=== PATIENT | female | born 1955 | race Caucasian/White ===

== ENCOUNTER 2019-12-31 22:54 | Inpatient (IN) | payer MEDICARE, BC, SELFPAY ==
[2019-12-31] VITALS (7 sets, daily range): BP systolic 126–146; BP diastolic 66–84; PULSE 92–105; RESP 14–20; TEMP 36.3; O2SAT 93–95; BMI 33.5
--- NOTE | 2019-12-31 23:16 | RAD_ITS ---
HISTORY: C/O SOB, RT SHOULDER PAIN Tamp; CP ADDITIONAL HISTORY: None provided. EXAMINATION/TECHNIQUE: XR Chest 1 View AP/PA Number of images including paperwork: 1 COMPARISON: None FINDINGS: LUNGS AND PLEURA: Low lung volumes. No consolidation, mass or pleural effusion. CARDIAC SILHOUETTE: Unremarkable. MEDIASTINUM AND BEN: Unremarkable. UPPER ABDOMEN: Unremarkable. SKELETON AND SOFT TISSUES: No acute skeletal findings. Degenerative changes. OTHER DEVICES AND HARDWARE: None. RAD/Chest 1 View (Portable) IMPRESSION: No acute findings on this portable exam. Follow-up as clinically indicated. at 2356 Reported and signed by: Kenya Villeda MD Electronically Signed: Kenya Villeda MD at 23:56 EDT Tel , Service support ,
--- NOTE | 2019-12-31 23:16 | EKG12_ITS ---
Test Reason : DYSRHYTHMIA Blood Pressure : / mmHG Vent. Rate : 095 BPM Atrial Rate : 095 BPM P-R Int : 178 ms QRS Dur : 086 ms QT Int : 350 ms P-R-T Axes : 036 -54 027 degrees QTc Int : 439 ms Normal sinus rhythm Left axis deviation Inferior infarct , age undetermined Abnormal ECG Confirmed by DARREN DILL, ALEX ([id number]), movie editor NAREN LAMBERT ([id number]) on 01/05/2020 8:25:49 AM Referred By: SUSAN Confirmed By:UVALDO BANKS MD
--- NOTE | 2019-12-31 23:17 | ED.VIS.CHEST ---
History of Present Illness Chief Complaint: General Illness Informant: Patient Onset: Hours - 1.5-2 Activity at onset: Sleep - awoke w/ sx Quality: Pressure Location: Substernal Current Severity: Mild Maximum Severity: Moderate Worsened By: Nothing. Not Worsened By: Breathing Relieved By: Nothing - in particular Associated Symptoms: Dyspnea, Palpitations. Negative for: Nausea, Vomiting, Diaphoresis, Cough, Fever, Lightheadedness Narrative: Patient states this afternoon 10 hours ago or so, she experienced tingling in her left hand which she has on occasion after she had a surgery on her left arm that involve ligating her ulnar artery, it went away and then she had it in her right hand which is unusual. Lasted about half an hour and went away. She felt tired and took a nap. She woke up about 1.5-2 hours prior to arrival with a discomfort in her right flank, she points to an area between her chest and abdomen on her side, states that she had a pain there and also felt pain in her right shoulder she points to the subacromial area, as well as the trapezius musculature. She states the pain in her side felt like a electric surge that may be lasted 30-60 minutes and is basically gone. She is also had some mild chest pressure with all of this, and feeling some mild dyspnea. She states she had trouble walking, but qualifies that by saying she has had swelling in her legs for the last week or so, and thinks that it was just difficult to walk, not painful or dyspnea or lightheaded/near syncopal. She said she uses the word palpitation, but has trouble qualifying it, and then basically is using it to describe this electric surge that she felt on her side. She has never had any of this before. However she has not seen a doctor in about 20 years, and just sought to establish primary care, has an appointment with Dr. Moore in 2 days, and has not seen her before. - Past Medical History (1) Arthritis Status: Chronic Comment: Wears brace left ankle for ankle/knee arthritic issues Past Medical History - Allergies and Home Meds Allergies/Adverse Reactions: Allergies No Known Allergies Allergy (Verified 03/18/16 07:26) Surgical History: - - Left upper extremity Lives: Spouse/ Significant Other Smoking Status: Never smoker Review of Systems General: Reports: Malaise. Denies: Chills, Fever, Sweats Eyes: Denies: Visual changes - bilaterally, Diplopia ENT: Denies: Bilateral ear pain, Rhinorrhea, Sore throat Cardiovascular: Reports: Chest pain, Palpitations. Denies: Heart racing Respiratory: Reports: Dyspnea. Denies: Cough, Dyspnea on exertion Gastrointestinal: Reports: Abdominal pain - See HPI. Denies: Nausea, Vomiting, Diarrhea, Melena, Hematochezia Genitourinary: Denies: Dysuria, Hematuria, Frequency Musculoskeletal: Reports: Arthralgias - Chronic unchanged, Neck pain - Right trapezius, Swelling - BLE, Extremity Pain - Right shoulder. Denies: Myalgias, Back pain Skin: Denies: Rash, Wounds Neurological: Reports: Parasthesia - Resolved now. Denies: Headache, Weakness Physical Exam Vital Signs/Narrative: Vital Signs Temp Pulse Resp BP Pulse Ox 12/31/19 23:12 97.4 F L 100 19 H 146/74 H 95 12/31/19 22:54 97.4 F L 105 H 20 H 143/77 H 94 Inital Vital Signs reviewed: Yes General: Well nourished, Well developed, Obese, No Acute Distress Head: Normocephalic, Atraumatic Eyes: Perrl, EOMI ENT: Moist mucous membranes, No rhinorrhea Neck: Supple, Nontender, No lymphadenopathy, No JVD Cardiovascular: Regular rate, Regular rhythm, Murmur - Systolic soft 2/6 Respiratory: No distress, CTA bilaterally, Chest nontender Abdomen: Soft, Nontender, Nondistended, Normal bowel sounds Back: Nontender, Normal Inspection. Negative for: CVA tenderness Extremities: Tenderness - Mild right subacromial and trapezius. No acromioclavicular or other bony shoulder girdle tenderness. Full range of motion of shoulder., Edema - 1+ nonpitting symmetric both lower extremities, - - Left foot-drop brace present. Negative for: Calf Tenderness Skin: Normal color, No rash Neurological: Alert, Oriented x3, Cranial nerves II-XII grossly intact, Normal Strength, Normal Sensation Psychological: Normal affect, Normal Mood Diagnostic/Tx/Re-eval Clinical Impression(s) from Imaging Studies Chest X-Ray 12/31/19 23:16 IMPRESSION: No acute findings on this portable exam. Follow-up as clinically indicated. at 7936 Reported and signed by: Kenya Villeda MD Electronically Signed: Kenya Villeda MD at 23:56 EDT Tel , Service support , Chest CTA 01/01/20 04:00 IMPRESSION: 1. No central or large peripheral pulmonary embolus, evaluation limited due to motion artifact and contrast bolus timing. 2. Right lower lobe consolidation suggestive of pneumonia. 3. Somewhat nodular appearance of breast parenchyma bilaterally with slightly more prominent ovoid nodular density on the left. Correlation with mammography recommended. Individualized dose optimization techniques were used for this CT. at 0519 Reported and signed by: Kenya Villeda MD Electronically Signed: Kenya Villeda MD at 5:18 EDT Tel , Service support , Abdomen/Pelvis CT 01/01/20 04:03 IMPRESSION: No acute abdominopelvic abnormality. Right ovarian cyst. Nonemergent follow-up pelvic ultrasound suggested for further characterization with gynecologic follow-up. Individualized dose optimization techniques were used for this CT. at 0526 Reported and signed by: Kenya Villeda MD Electronically Signed: Kenya Villeda MD at 5:25 EDT Tel , Service support , Laboratory Tests 01/01/20 01/01/20 12/31/19 Range/Units 02:13 00:10 23:14 WBC (4.4-11.0) K/mm3 RBC (4.2-5.4) M/mm3 Hgb (12.0-15.0) g/dL Hct (37-47) % MCV (81-99) fL MCH (27.0-32.0) pg MCHC (32-36) g/dL RDW Std Deviation (35.1-43.9) fl RDW Coeff of Pa (11.6-14.6) % Plt Count (150-450) K/mm3 MPV (6.2-12.0) fl Immature Gran % (Auto) (0.0-0.9) % Neut % (Auto) (47-70) % Lymph % (Auto) (19-41) % [place] % (Auto) (0-10) % Eos % (Auto) (0-5) % Baso % (Auto) (0-1) % Absolute Neuts (auto) (2.0-7.7) X10^3/uL Absolute Lymphs (auto) (0.83-4.51) X10^3/uL Nucleated RBC % (0-5) % Sodium 137 (136-145) mmol/L Potassium 3.7 (3.5-5.1) mmol/L Chloride 106 (98-107) mmol/L Carbon Dioxide 26.0 (21.0-32.0) mmol/L Anion Gap 5 (5-15) BUN 12 (7-18) mg/dL Creatinine 0.65 (0.55-1.02) mg/dL Estim Creat Clear Calc 47.79 ml/min Est GFR (MDRD) Af Amer 118 (>60) mL/min Est GFR (MDRD) Non-Af 97 (>60) mL/min BUN/Creatinine Ratio 18.6 (10-20) RATIO Glucose 121 H (74-106) mg/dL Calcium 9.2 (8.5-10.1) mg/dL Troponin I < 0.015 < 0.015 (<0.045) ng/mL Urine Color Yellow (Yellow) Urine Clarity Clear (Clear) Urine pH 7.0 (5.0 - 8.0) Ur Specific [place] 1.005 (1.002-1.030) Urine Protein 15 H (Negative) mg/dl Urine Glucose (UA) Normal (Normal) mg/dl Urine Ketones 5 H (Negative) mg/dl Urine Occult Blood 25 H (Negative) /ul Urine Nitrite Negative (Negative) Urine Bilirubin Negative (Negative) mg/dL Urine Urobilinogen Normal (Normal) mg/dl Ur Leukocyte Esterase 500 H (Negative) /ul Urine RBC 0-5 SEEN (0-5) /hpf Urine WBC 0-5 SEEN (0-5) /hpf Ur Squamous Epith Cells 0-5 SEEN (5-10) /hpf Urine Bacteria 0 SEEN (None Seen) /hpf Urine Mucus 0 SEEN (<or=2+) /hpf 12/31/19 Range/Units 23:14 WBC 13.9 H (4.4-11.0) K/mm3 RBC 4.29 (4.2-5.4) M/mm3 Hgb 13.1 (12.0-15.0) g/dL Hct 39.5 (37-47) % MCV 92.1 (81-99) fL MCH 30.5 (27.0-32.0) pg MCHC 33.2 (32-36) g/dL RDW Std Deviation 43.3 (35.1-43.9) fl RDW Coeff of Pa 12.8 (11.6-14.6) % Plt Count 275 (150-450) K/mm3 MPV 9.1 (6.2-12.0) fl Immature Gran % (Auto) 0.500 (0.0-0.9) % Neut % (Auto) 88.1 H (47-70) % Lymph % (Auto) 4.5 L (19-41) % [place] % (Auto) 6.7 (0-10) % Eos % (Auto) 0.1 (0-5) % Baso % (Auto) 0.1 (0-1) % Absolute Neuts (auto) 12.3 H (2.0-7.7) X10^3/uL Absolute Lymphs (auto) 0.62 L (0.83-4.51) X10^3/uL Nucleated RBC % 0 (0-5) % Sodium (136-145) mmol/L Potassium (3.5-5.1) mmol/L Chloride (98-107) mmol/L Carbon Dioxide (21.0-32.0) mmol/L Anion Gap (5-15) BUN (7-18) mg/dL Creatinine (0.55-1.02) mg/dL Estim Creat Clear Calc ml/min Est GFR (MDRD) Af Amer (>60) mL/min Est GFR (MDRD) Non-Af (>60) mL/min BUN/Creatinine Ratio (10-20) RATIO Glucose (74-106) mg/dL Calcium (8.5-10.1) mg/dL Troponin I (<0.045) ng/mL Urine Color (Yellow) Urine Clarity (Clear) Urine pH (5.0 - 8.0) Ur Specific [place] (1.002-1.030) Urine Protein (Negative) mg/dl Urine Glucose (UA) (Normal) mg/dl Urine Ketones (Negative) mg/dl Urine Occult Blood (Negative) /ul Urine Nitrite (Negative) Urine Bilirubin (Negative) mg/dL Urine Urobilinogen (Normal) mg/dl Ur Leukocyte Esterase (Negative) /ul Urine RBC (0-5) /hpf Urine WBC (0-5) /hpf Ur Squamous Epith Cells (5-10) /hpf Urine Bacteria (None Seen) /hpf Urine Mucus (<or=2+) /hpf - Rhythm Strip Rhythm Strip: Sinus Rhythm Rate: 95 Ectopy: None - EKG Initial EKG Interpretation: Sinus Rhythm, No Acute Injury Pattern, LAFB Prior: No Prior Treatment: Aspirin, NTG SL, NTG Topical Repeat Eval: improved REVA Risk: Age >/= 65 Score: 1 - Medical Decision Making Patient has a plethora of symptoms, unknown if this is cardiac or not but now she is complaining of chest pressure. It improved with nitroglycerin. Her EKG shows a left axis and there is no old EKG available for comparison. Her initial enzymes are negative but she was only having pressure for about 1-2 hours. Therefore we did a delta troponin and it also returned negative. She ended up having worsening pressure, there was delay in placing the nitroglycerin paste and before it was put on this occurred. So we placed it on her chest and gave her another sublingual, that helped her pressure, but she had throbbing headache and started feeling lightheaded so we removed all the nitroglycerin and gave her a GI cocktail and Tylenol, however she vomited it all up. Her work-up is negative. I did a urinalysis to screen for microscopic hematuria, since a kidney stone could be in the differential diagnosis for some of her symptoms. There is a trace amount of blood but no red blood cells, certainly do not think this is rhabdomyolysis, nor do I think she has any significant amount of blood to warrant a CT scan at this time. The right upper extremity symptoms are probably referred pain, and given her work-up I am not suspecting anything dangerous at this time. I did take the bedside ultrasound into her room, since the patient is here on overnight shift where ultrasound is not available, and we did a bedside gallbladder evaluation. She has a negative sonographic Glover's, normal gallbladder wall without thickening at 0.2 cm, and no stones, it was not contracted. Certainly it is possible to have gallbladder pain without stones, however she is not tender on her gallbladder at this time. She was given Zofran for her nausea, and during all of the above, she started dropping her oxygen levels some. They hovered between 88 and 93, going up whenever she would talk. She said it still felt a little difficult to take a breath and she felt chest tightness. She was given an albuterol nebulizer treatment. This did not help anything. We ambulated her, and her pulse ox dropped to 88% on room air. Her chest x-ray was normal, so CT angiography of the chest is obtained, and also abdomen/pelvis since we had her in CT and she had unusual right flank symptoms. As above, the results of these essentially are an occult right lower lobe infiltrate that was not seen on chest x-ray. This would explain her symptoms. There is no evidence of pulmonary embolus. Since she is hypoxic, IV antibiotics are ordered and she will be admitted to medical surgical floor. We did send a COVID-19 test, it returned negative. Patient is not septic and does not be criteria, so a lactate and blood cultures were felt unnecessary. ED Disposition - Plan for ED Patient: Disposition: Acute Care Hospital [facility] Diagnosis: Hypoxemia, Pneumonia
[2019-12-31 23:35] LABS: Absolute Lymphocyte Count 0.62 X10^3/uL (0.83-4.51); Absolute Neutrophil Count 12.3 X10^3/uL (2.0-7.7); Basophil# 0.02 X10^3/uL; Basophil% 0.1 % (0-1); Eosinophil# 0.01 X10^3/uL; Eosinophils% 0.1 % (0-5); Hematocrit 39.5 % (37-47); Hemoglobin 13.1 g/dL (12.0-15.0); Lymphocyte # 0.62 X10^3/ul (4.0); Lymphocyte % 4.5 % (19-41); Mean Corp Hgb Conc 33.2 g/dL (32-36); Mean Corpuscular Hgb 30.5 pg (27.0-32.0); Mean Corpuscular Volume 92.1 fL (81-99); Mean Platelet Vol. 9.1 fl (6.2-12.0); Monocyte# 0.93 X10^3/uL; Monocyte% 6.7 % (0-10); NRBC Flagged by Analyzer 0 % (0-5); Neutrophil # 12.27 X10^3/uL (2.7-7.7); Neutrophil % 88.1 % (47-70); Platelet Count 275 K/mm3 (150-450); RBC Distribution Width CV 12.8 % (11.6-14.6); RBC Distribution Width SD 43.3 fl (35.1-43.9); Red Blood Count 4.29 M/mm3 (4.2-5.4); White Blood Count 13.9 K/mm3 (4.4-11.0)
[2019-12-31] MEDS: Aspirin 81 MG TAB.CHEW 324 MG PO (23:48)
[2019-12-31] MEDS: Nitroglycerin SL (ED/IMG/CATH) 0.4 MG TABLET SUBLINGUAL ×3 (23:49→23:59)
[2019-12-31 23:51] LABS: Anion Gap 5 (5-15); BUN 12 mg/dL (7-18); BUN/Creat Ratio 18.6 RATIO (10-20); Calcium,Total 9.2 mg/dL (8.5-10.1); Chloride 106 mmol/L (98-107); Creatinine, Serum 0.65 mg/dL (0.55-1.02); EST Glomerular Filtration Rate 97 mL/min (>60); Est Glom Filt Rate - Afr Amer 118 mL/min (>60); Estimated Creatinine Clearance 47.79 ml/min; Glucose 121 mg/dL (74-106); Potassium 3.7 mmol/L (3.5-5.1); Sodium Level 137 mmol/L (136-145)
[2020-01-01] VITALS (17 sets, daily range): BP systolic 109–136; BP diastolic 41–78; PULSE 85–106; RESP 14–20; TEMP 36.6–37.4; O2SAT 89–97; BMI 37.8
[2020-01-01 00:17] LABS: Bacteria 0 SEEN /hpf (None Seen); Color, Urine Yellow (Yellow); Glucose, Dipstick Normal (Normal); Ketone-Dipstick 5 mg/dl (Negative); Leukocyte Esterase-Dipstick 500 /ul (Negative); Mucous, Urine 0 SEEN /hpf (<or=2+); Nitrite-Dipstick Negative (Negative); Occult Blood-Urine 25 /ul (Negative); Protein-Dipstick 15 mg/dl (Negative); Specific Gravity, Urine 1.005 (1.002-1.030); Urine Bilirubin Dipstick Negative (Negative); Urine Clarity Clear (Clear); Urine Urobilinogen Normal (Normal)
[2020-01-01 00:52] LABS: Red Blood Cells-Urine 0-5 SEEN /hpf (0-5); Squamous Epithelial Cells - UA 0-5 SEEN /hpf (5-10); White Blood Cells 0-5 SEEN /hpf (0-5)
[2020-01-01] MEDS: Nitroglycerin Oint 1 INCH PACKET TRANSDERM. (01:31)
[2020-01-01] MEDS: Nitroglycerin SL (ED/IMG/CATH) 0.4 MG TABLET SUBLINGUAL (01:55)
[2020-01-01] MEDS: Acetaminophen 500 MG Tablet 1000 MG PO (02:18)
[2020-01-01] MEDS: Mag Hydrox/Al Hydrox/Simeth 30 ML UDC PO (02:19)
[2020-01-01] MEDS: Ondansetron 4 MG/2 ML Vial IV ×2 (02:53→09:11)
[2020-01-01] MEDS: Albuterol 2.5 MG/3 ML VIAL.NEB. INHALATION (03:27)
--- NOTE | 2020-01-01 04:00 | CT_ITS ---
HISTORY: SOB,RT FLANK PAIN,RT SHOULDER PAIN,N/T BILAT ARMS ADDITIONAL HISTORY: None provided. EXAMINATION/TECHNIQUE: CTA Chest WO/W Contrast Injection PULMONARY EMBOLISM PROTOCOL: 2D and 3D images to include MIP and/or volume rendered images CONTRAST: IV 100mL Isovue-370 Number of images including paperwork: 1259 A radiation dose optimization technique was used for this scan. COMPARISON: None FINDINGS: PULMONARY ARTERIES: No central or large peripheral filling defects. Distal segmental and subsegmental evaluation limited due to contrast bolus timing and motion artifact. AORTA AND GREAT VESSELS: No dissection. Vascular tortuosity. HEART/PERICARDIUM: Unremarkable. MEDIASTINUM: Small to moderate size hiatal hernia. ADENOPATHY: No pathologic appearing adenopathy. THYROID: 1.1 cm hypodense left thyroid lobe nodule. No further evaluation warranted per consensus criteria. LUNG PARENCHYMA: Right lower lobe consolidation. Linear bilateral subsegmental atelectasis versus scarring. PLEURAL SPACES: Unremarkable. UPPER ABDOMEN: Unremarkable. OSSEOUS AND SOFT TISSUE STRUCTURES: No acute skeletal findings. Breast parenchyma appears somewhat nodular bilaterally in the visualized extent, more pronounced on the left compared to the right with an ovoid nodular density measuring 9 x 20 mm on the left. CT/CTA Chest W/WO Contrast IMPRESSION: 1. No central or large peripheral pulmonary embolus, evaluation limited due to motion artifact and contrast bolus timing. 2. Right lower lobe consolidation suggestive of pneumonia. 3. Somewhat nodular appearance of breast parenchyma bilaterally with slightly more prominent ovoid nodular density on the left. Correlation with mammography recommended. Individualized dose optimization techniques were used for this CT. at 0519 Reported and signed by: Kenya Villeda MD Electronically Signed: Kenya Villeda MD at 5:18 EDT Tel , Service support ,
--- NOTE | 2020-01-01 04:03 | CT_ITS ---
HISTORY: SOB,RT FLANK PAIN,RT SHOULDER PAIN,N/T BILAT ARMS ADDITIONAL HISTORY: None provided. EXAMINATION/TECHNIQUE: CT Abdomen And Pelvis W/ Contrast Injection CONTRAST: IV 100mL Isovue-370 IV contrast. Enteric contrast was not given. A radiation dose optimization technique was used for this scan. Number of images including paperwork: [id number] COMPARISON: None FINDINGS: LOWER THORAX: Right lower lobe consolidation. Small to moderate size hiatal hernia. Refer to chest CT report. LIVER: No concerning focal lesion. Enlarged, 18 cm craniocaudal. GALLBLADDER: No radiopaque calculi. BILE DUCTS: No significant biliary dilatation. SPLEEN: Unremarkable. PANCREAS: Unremarkable. ADRENAL GLANDS: Unremarkable. KIDNEYS/URETERS: Unremarkable. BOWEL: No bowel obstruction. No significant bowel wall thickening. No localized inflammation. Colonic diverticulosis. APPENDIX: No evidence of appendicitis. Small appendicoliths noted. FREE FLUID: No significant free fluid. FREE AIR: None. LYMPH NODES: No pathologic appearing adenopathy. PERITONEUM, RETROPERITONEUM AND MESENTERY: Otherwise unremarkable. VASCULATURE: Unremarkable as imaged. PELVIS: Unremarkable bladder. 3.5 cm right ovarian cyst measuring water density. ABDOMINAL WALL: Fat-containing umbilical hernia with 3 cm defect. OSSEOUS AND SOFT TISSUE STRUCTURES: No acute skeletal findings. Degenerative changes. CT/Abdomen/Pelvis W IV Cont ONLY IMPRESSION: No acute abdominopelvic abnormality. Right ovarian cyst. Nonemergent follow-up pelvic ultrasound suggested for further characterization with gynecologic follow-up. Individualized dose optimization techniques were used for this CT. at 8906 Reported and signed by: Kenya Villeda MD Electronically Signed: Kenya Villeda MD at 5:25 EDT Tel , Service support ,
[2020-01-01] MEDS: Ceftriaxone 1 GM/50 ML BAG IV (05:47)
[2020-01-01 06:14] LABS: Probe Check PASS; Specimen Processing Control PASS
--- NOTE | 2020-01-01 06:42 | PCM.HP.STD ---
History of Present Illness Date of Admission: 01/01/20 Chief Complaint: Shortness of breath The patient is a 64 year old F with PMH as below who presents to the hospital after having multiple dissociated symptoms that started yesterday morning, including tingling in her left hand as well as right sided abdominal/chest pain with shortness of breath. She also had pain in her right shoulder as well as some mild chest pressure. Initially in the ER she was worked up as a chest pain rule out and had a delta troponin both of which were negative. Her EKG was unremarkable and nonischemic. Her pain was relieved with nitro, initially her chest x-ray was read as normal. However she then started becoming hypoxic with ambulation specifically so a CTA was ordered which was negative for a PE however she did have a right lower lobe consolidation consistent with pneumonia, and this is also consistent with her shortness of breath, and her chest pressure as well as the location of her pain in her right lower chest and right upper abdomen. On CBC she also has a white count of 13,000 and her COVID test was negative. Past Medical History Past Medical History (Chronic Problems): Chronic Problems Arthritis (Chronic) Wears brace left ankle for ankle/knee arthritic issues Allergies No Known Allergies Allergy (Verified 03/18/16 07:26) Home Medications: Ambulatory Orders Medication Instructions Recorded No Known/Unobtainable [No Known 03/18/16 Home Medications] Surgical History: - - Left upper extremity Lives: Spouse/ Significant Other Smoking Status: Never smoker Alcohol: None Drugs: None - *Family History Maternal History Items: Cancer Paternal History Items: Cancer Review of Systems Constitutional: Denies: Chills, Fever, Weight Change HEENT: Denies: Head Aches, Sinus Congestion, Sinus Drainage Cardiovascular: Reports: Chest Pressure. Denies: Chest Pain, Palpitations Respiratory: Reports: Shortness of Breath. Denies: Cough, Shortness of breath at rest, Sputum production Gastrointestinal: Denies: Abdominal Pain, Nausea, Vomiting Genitourinary: Denies: Dysuria Musculoskeletal: Denies: Joint Pain, Joint Tenderness Skin: Denies: Rash, Wounds Neurological: Denies: Numbness, Tingling, Focal weakness Psychiatric: Denies: Anxiety, Depression Hematologic/ Lymphatic: Denies: Easy Bruising, Easy Bleeding VTE Information - Inpt Only VTE Present on Admission: No Patient Problems: Active and Suspected Problems Hypoxemia (Acute) Pneumonia (Acute) - Physical Exam Vitals/I&O's: Vital Signs Temp Pulse Resp BP Pulse Ox 98.5 F 85 20 H 122/63 H 97 01/01/20 06:18 01/01/20 06:18 01/01/20 06:18 01/01/20 06:18 01/01/20 06:18 Oxygen Flow Rate (L/min) 2 Oxygen Delivery Method Room Air Weight: 195 lb Body Mass Index (BMI) 33.5 Intake and Output for Last 24 Hours 12/30/19 12/31/19 01/01/20 23:59 23:59 23:59 Intake Total 50 / 50 Balance 50 / 50 General: Alert, Oriented x3, Cooperative, No apparent distress HEENT: Atraumatic, PERRLA, EOMI, Normocephalic Oral: Moist Mucosa Neck: Supple, No JVD Lungs: Clear to auscultation, Normal air movement, No rhonchi, No wheeze, No rales Cardiovascular: Regular rate, Regular Rhythm, Normal S1, Normal S2, No murmurs Abdomen: Soft, Non Tender, Non-Distended, No Hepato-splenomegaly Extremities: No edema, Capillary Refill Less than 3 Seconds Skin: No rashes, No breakdown Neurological: Neuro grossly intact, Sensory exam intact to light touch and pain Psych/Mental Status: Normal Affect, Appropriate Laboratory Results 12/31/19 23:14: WBC 13.9 H, RBC 4.29, Hgb 13.1, Hct 39.5, MCV 92.1, MCH 30.5, MCHC 33.2, RDW Std Deviation 43.3, RDW Coeff of Pa 12.8, Plt Count 275, MPV 9.1, Immature Gran % (Auto) 0.500, Neut % (Auto) 88.1 H, Lymph % (Auto) 4.5 L, [place] % (Auto) 6.7, Eos % (Auto) 0.1, Baso % (Auto) 0.1, Absolute Neuts (auto) 12.3 H, Absolute Lymphs (auto) 0.62 L, Nucleated RBC % 0 12/31/19 23:14: Sodium 137, Potassium 3.7, Chloride 106, Carbon Dioxide 26.0, Anion Gap 5, BUN 12, Creatinine 0.65, Estim Creat Clear Calc 47.79, Est GFR (MDRD) Af Amer 118, Est GFR (MDRD) Non-Af 97, BUN/Creatinine Ratio 18.6, Glucose 121 H, Calcium 9.2, Troponin I < 0.015 01/01/20 00:10: Urine Color Yellow, Urine Clarity Clear, Urine pH 7.0, Ur Specific [place] 1.005, Urine Protein 15 H, Urine Glucose (UA) Normal, Urine Ketones 5 H, Urine Occult Blood 25 H, Urine Nitrite Negative, Urine Bilirubin Negative, Urine Urobilinogen Normal, Ur Leukocyte Esterase 500 H, Urine RBC 0-5 SEEN, Urine WBC 0-5 SEEN, Ur Squamous Epith Cells 0-5 SEEN, Urine Bacteria 0 SEEN, Urine Mucus 0 SEEN 01/01/20 02:13: Troponin I < 0.015 01/01/20 04:25: COVID-19 (JAMILA) Negative Current Medications Sodium Chloride 1,000 ml/ N/A 1,000 mls @ 88.451 mls/hr IV .[id number] [id number] Stop: 01/02/20 04:06 Last Admin: 01/01/20 04:51 Dose: 1 ml/kg/hr, 88.5 mls/hr Documented by: Assessment/Plan All Active Problems Hypoxemia (Acute) Pneumonia (Acute) 1. Right lower lobe consolidation -Continue with Rocephin and azithromycin for her pneumonia -Troponins are negative, and given the right lower lobe consolidation will no longer need to cardiac rule out -No evidence of PE, and COVID test was negative -Incentive spirometer -She is able to eat and drink therefore no need for IV fluids DVT: Lovenox Inpatient E&M: 82230 Init Hosp L2
[2020-01-01] MEDS: 0.9% Saline Lock 10 ML Syringe IV ×2 (09:11→11:26)
[2020-01-01] MEDS: Enoxaparin 40 MG/0.4 ML Syringe SC (09:11)
--- NOTE | 2020-01-01 10:39 | PCM.HOSP.N ---
Hospitalist Note Patient was admitted about 7:00 in the morning by my colleague. Discussed with him regarding history and physical. H&P reviewed. Patient has multiple complaints with little reasoning and history circumferential. She has initially had chest pain and then tingling sensation in both arms, hypoxia and walking therefore CTPA was done. It showed right lower lobe pneumonia. With IV ceftriaxone and Zithromax. As patient had both CTPA and abdomen pelvis CT with contrast therefore risk for contrast-induced nephropathy with creatinine clearance of 47 mils per hour. IV fluid normal saline at 60 mils per hour for 1 L. Monitor kidney function tomorrow a.m. Patient had mild nausea and vomiting after contrast. Physical exam Air entry diminished right lung base. No hypoxia, tachypnea Heart: S1-S2 regular, no murmur gallop or rub Mild chronic bilateral lower legs ankle edema. : Good urine output. UA negative. Denies pyuria. Medication reviewed. Clinical Impression(s) from Imaging Studies Chest X-Ray 12/31/19 23:16 IMPRESSION: No acute findings on this portable exam. Follow-up as clinically indicated. Chest CTA 01/01/20 04:00 IMPRESSION: 1. No central or large peripheral pulmonary embolus, evaluation limited due to motion artifact and contrast bolus timing. 2. Right lower lobe consolidation suggestive of pneumonia. 3. Somewhat nodular appearance of breast parenchyma bilaterally with slightly more prominent ovoid nodular density on the left. Correlation with mammography recommended. Abdomen/Pelvis CT 01/01/20 04:03 IMPRESSION: No acute abdominopelvic abnormality. Right ovarian cyst. Nonemergent follow-up pelvic ultrasound suggested for further characterization with gynecologic follow-up. Individualized dose optimization techniques were used for this CT. at 7681 Reported and signed by: Kenya Villeda MD Electronically Signed: Kenya Villeda MD at 5:25 EDT Tel , Service support , Laboratory Results 12/31/19 23:14: WBC 13.9 H, RBC 4.29, Hgb 13.1, Hct 39.5, MCV 92.1, MCH 30.5, MCHC 33.2, RDW Std Deviation 43.3, RDW Coeff of Pa 12.8, Plt Count 275, MPV 9.1, Immature Gran % (Auto) 0.500, Neut % (Auto) 88.1 H, Lymph % (Auto) 4.5 L, [place] % (Auto) 6.7, Eos % (Auto) 0.1, Baso % (Auto) 0.1, Absolute Neuts (auto) 12.3 H, Absolute Lymphs (auto) 0.62 L, Nucleated RBC % 0 12/31/19 23:14: Sodium 137, Potassium 3.7, Chloride 106, Carbon Dioxide 26.0, Anion Gap 5, BUN 12, Creatinine 0.65, Estim Creat Clear Calc 47.79, Est GFR (MDRD) Af Amer 118, Est GFR (MDRD) Non-Af 97, BUN/Creatinine Ratio 18.6, Glucose 121 H, Calcium 9.2, Troponin I < 0.015 01/01/20 00:10: Urine Color Yellow, Urine Clarity Clear, Urine pH 7.0, Ur Specific [place] 1.005, Urine Protein 15 H, Urine Glucose (UA) Normal, Urine Ketones 5 H, Urine Occult Blood 25 H, Urine Nitrite Negative, Urine Bilirubin Negative, Urine Urobilinogen Normal, Ur Leukocyte Esterase 500 H, Urine RBC 0-5 SEEN, Urine WBC 0-5 SEEN, Ur Squamous Epith Cells 0-5 SEEN, Urine Bacteria 0 SEEN, Urine Mucus 0 SEEN 01/01/20 02:13: Troponin I < 0.015 01/01/20 04:25: COVID-19 (JAMILA) Negative
[2020-01-01] MEDS: 0.9% Normal Saline 1,000 ML 60 ML IV (11:28)
[2020-01-02 04:00] VITALS: BP 108/47; PULSE 84; RESP 16; TEMP 37.2; O2SAT 92
[2020-01-02 05:41] LABS: Absolute Lymphocyte Count 0.77 X10^3/uL (0.83-4.51); Absolute Neutrophil Count 9.5 X10^3/uL (2.0-7.7); Basophil# 0.02 X10^3/uL; Basophil% 0.2 % (0-1); Eosinophil# 0.01 X10^3/uL; Eosinophils% 0.1 % (0-5); Hematocrit 34.3 % (37-47); Hemoglobin 10.9 g/dL (12.0-15.0); Lymphocyte # 0.77 X10^3/ul (4.0); Lymphocyte % 7.1 % (19-41); Mean Corp Hgb Conc 31.8 g/dL (32-36); Mean Corpuscular Hgb 30.8 pg (27.0-32.0); Mean Corpuscular Volume 96.9 fL (81-99); Monocyte# 0.46 X10^3/uL; Monocyte% 4.2 % (0-10); NRBC Flagged by Analyzer 0 % (0-5); Neutrophil # 9.53 X10^3/uL (2.7-7.7); Neutrophil % 87.3 % (47-70); Platelet Count 221 K/mm3 (150-450); RBC Distribution Width CV 13.1 % (11.6-14.6); RBC Distribution Width SD 46.6 fl (35.1-43.9); Red Blood Count 3.54 M/mm3 (4.2-5.4); White Blood Count 10.9 K/mm3 (4.4-11.0)
[2020-01-02 05:53] LABS: Anion Gap 3 (5-15); BUN 9 mg/dL (7-18); BUN/Creat Ratio 16.3 RATIO (10-20); Calcium,Total 8.5 mg/dL (8.5-10.1); Chloride 105 mmol/L (98-107); Creatinine, Serum 0.55 mg/dL (0.55-1.02); EST Glomerular Filtration Rate 117 mL/min (>60); Est Glom Filt Rate - Afr Amer 142 mL/min (>60); Estimated Creatinine Clearance 47.79 ml/min; Glucose 99 mg/dL (74-106); Potassium 3.6 mmol/L (3.5-5.1); Sodium Level 134 mmol/L (136-145)
[2020-01-02 08:35] VITALS: PULSE 85; RESP 14
[2020-01-02 09:24] VITALS: BP 139/69; PULSE 87; RESP 14; TEMP 37; O2SAT 94
[2020-01-02] MEDS: Enoxaparin 40 MG/0.4 ML Syringe SC (10:26)
[2020-01-02] MEDS: Acetaminophen 325 MG Tablet 650 MG PO (10:34)
--- NOTE | 2020-01-02 11:23 | CASEMGMT ---
ZOFIA PANCHAL assessment: Face to Face with patient for initial transition planning/care coordination assessment. ZOFIA PANCHAL introduced self and role at [facility], pt voices understanding and consents to assessment at this time. Pt is sitting up in chair in no distress at this time. Pt is A/Ox4 at this time and answers all questions appropriately at this time. Care providers, pharmacy, and demographics verified at this time. Presentation: Pt presents with multiple complaints including SOB, right shoulder pain, numbness/tingling down bilat arms Admitting dx: Pneumonia PCP: Teresa Specialists: Kaden, podiatry Preferred Pharmacy: [facility] Insurance: [facility] A/B, [place] Prescription Benefit: Yes Living Will/HPOA: Pt states has LW/HPOA and is aware that they are not on file at [facility] at this time. Pt states her , Ricardo Tello, is HPOA. LNOK: Ricardo Tello, Living Arrangements: Pt states lives with in 2 story home with bedroom upstairs and states no concerns at home at this time. Pt states is independent with ADL's. Transportation: Pt states drives self and states no transportation concerns at this time. DME/HHC: Pt states no current DME or need for any at this time. Pt states no hx of HHC or SNF in the past. Pt states no concerns with going home at time of discharge. 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 Pt states does not smoke cigarettes or drink ETOH. Pt states no further concerns/needs at this time. CM to follow for any further discharge planning/needs. Advised pt to ask for CM if any further questions/concerns/needs arise, voices understanding. Pt Goal: Home Plan[place] ZOFIA PANCHAL
--- NOTE | 2020-01-02 11:33 | DCINST_ITS ---
- Discharge Diagnoses Current Active Problems: Current Active and Chronic Problems Hypoxemia (Acute) Pneumonia (Acute) You will use the following diet at home:: No restrictions Your food should be the consistency of: Regular Your liquids should be the consistency of: Regular/Thin Discharge Activity: Return to Normal Activity Allergies/Adverse Reactions: Allergies No Known Allergies Allergy (Verified 03/18/16 07:26) Medications to take at Discharge Guaifenesin [Mucinex] 600 mg PO BID #10 tab.er.12h 01/02/20 Levofloxacin 750 mg PO DAILY #5 tab 01/02/20 The following prescriptions were given: Levofloxacin 750 mg PO DAILY #5 tab Transmission Status: Pending to [facility] Guaifenesin [Mucinex] 600 mg PO BID #10 tab.er.12h Transmission Status: Pending to [facility] Primary Care Physician: Care Physician,No Primary [NON-STAFF] - Test Results: Test results from this visit will be discussed in further detail at your follow- up appointment, if applicable. Please Follow Up With: Margaret Moore DO When: 1-2 weeks Proposed Discharge Date: 01/02/20
--- NOTE | 2020-01-02 11:34 | DS.PCM_ITS ---
Discharge Date and Diagnosis - Problem List Patient Problems: Active and Suspected Problems Hypoxemia (Acute) Pneumonia (Acute) Date of Admission: 01/01/20 Date of Discharge: 01/02/20 - Primary Discharge Diagnosis Acute Problems: Active Problems Hypoxemia (Acute) Pneumonia (Acute) - Secondary Discharge Diagnosis Chronic Problems: Chronic Problems Arthritis (Chronic) Wears brace left ankle for ankle/knee arthritic issues Hospital Course and Treatment Imaging Results: Clinical Impression(s) from Imaging Studies Chest X-Ray 12/31/19 23:16 IMPRESSION: No acute findings on this portable exam. Follow-up as clinically indicated. at 1906 Reported and signed by: Kenya Villeda MD Electronically Signed: Kenya Villeda MD at 23:56 EDT Tel , Service support , Chest CTA 01/01/20 04:00 IMPRESSION: 1. No central or large peripheral pulmonary embolus, evaluation limited due to motion artifact and contrast bolus timing. 2. Right lower lobe consolidation suggestive of pneumonia. 3. Somewhat nodular appearance of breast parenchyma bilaterally with slightly more prominent ovoid nodular density on the left. Correlation with mammography recommended. Individualized dose optimization techniques were used for this CT. at 0521 Reported and signed by: Kenya Villeda MD Electronically Signed: Kenya Villeda MD at 5:18 EDT Tel , Service support , Abdomen/Pelvis CT 01/01/20 04:03 IMPRESSION: No acute abdominopelvic abnormality. Right ovarian cyst. Nonemergent follow-up pelvic ultrasound suggested for further characterization with gynecologic follow-up. Individualized dose optimization techniques were used for this CT. at 3874 Reported and signed by: Kenya Villeda MD Electronically Signed: Kenya Villeda MD at 5:25 EDT Tel , Service support , Operations: None Procedures: None Summary of Care Provided: The patient is a 64 year old F presents with shortness of breath. Patient had 1 day history of chest pain and shortness of breath. Patient presented to the emergency room and had a CAT scan that showed a right lower lobe consolidation. Patient was started on ceftriaxone and azithromycin for pneumonia. Patient was monitored and has had an uncomplicated hospitalization thus far. Patient will be discharged with 5 more days of levofloxacin and also adding medicine to her regimen. Patient be discharged home in stable condition. [] Patient Problems: Active and Suspected Problems Hypoxemia (Acute) Pneumonia (Acute) - Physical Exam Vitals/I&O's: Vital Signs Temp Pulse Resp BP Pulse Ox 37.0 C 87 14 139/69 H 94 01/02/20 09:24 01/02/20 09:24 01/02/20 09:24 01/02/20 09:24 01/02/20 09:24 Oxygen Flow Rate (L/min) 2 Oxygen Delivery Method Room Air Weight: 99.8 kg Body Mass Index (BMI) 37.8 Intake and Output for Last 24 Hours 12/31/19 01/01/20 01/02/20 23:59 23:59 23:59 Intake Total 1419.48 / 1659.48 1290 / 1290 Balance 1419.48 / 1659.48 1290 / 1290 General: Alert, No apparent distress HEENT: Atraumatic, Normocephalic Oral: Moist Mucosa, No Gingival or Mucosal Lesions/ Ulcerations Neck: No Nodes, Thyroid Normal Size and Texture Lungs: Clear to auscultation, Normal air movement, - - crackles in RLL Cardiovascular: Regular rate, Regular Rhythm, Normal S1, Normal S2, No murmurs Abdomen: Bowel Sounds Present, Soft, Non Tender, Non-Distended Psych/Mental Status: Normal Affect, Appropriate Laboratory Results 01/02/20 05:32: WBC 10.9, RBC 3.54 L, Hgb 10.9 L, Hct 34.3 L, MCV 96.9 D, MCH 30.8, MCHC 31.8 L, RDW Std Deviation 46.6 H, RDW Coeff of Pa 13.1, Plt Count 221, MPV 9.0, Immature Gran % (Auto) 1.100 H, Neut % (Auto) 87.3 H, Lymph % (Auto) 7.1 L, [place] % (Auto) 4.2, Eos % (Auto) 0.1, Baso % (Auto) 0.2, Absolute Neuts (auto) 9.5 H, Absolute Lymphs (auto) 0.77 L, Nucleated RBC % 0 01/02/20 05:32: Sodium 134 L, Potassium 3.6, Chloride 105, Carbon Dioxide 26.0, Anion Gap 3 L, BUN 9, Creatinine 0.55, Estim Creat Clear Calc 47.79, Est GFR (MDRD) Af Amer 142, Est GFR (MDRD) Non-Af 117, BUN/Creatinine Ratio 16.3, Glucose 99, Calcium 8.5 Current Medications Acetaminophen (Tylenol) 650 mg PO Q6H PRN PRN PRN Reason: Pain Score 1-10/Temp > 100.7 F Last Admin: 01/02/20 10:34 Dose: 650 mg Documented by: Enoxaparin Sodium (Lovenox) 40 mg SC DAILY [facility] Last Admin: 01/02/20 10:26 Dose: 40 mg Documented by: Ceftriaxone Sodium 2 gm/ (Sodium Chloride) 50 mls @ 100 mls/hr IV Q24 [facility] Stop: 01/08/20 10:01 Last Infusion: 01/02/20 11:13 Dose: Infused Documented by: Azithromycin 500 mg/ Dextrose 255 mls @ 250 mls/hr IV Q24 [facility] Stop: 01/06/20 10:01 Last Admin: 01/02/20 11:13 Dose: 250 mls/hr Documented by: Melatonin (Melatonin) 3 mg PO QHS PRN PRN PRN Reason: INSOMNIA Ondansetron HCl (Zofran) 4 mg IV Q8H PRN PRN PRN Reason: NAUSEA/VOMITING Last Admin: 01/01/20 09:11 Dose: 4 mg Documented by: Sodium Chloride () 10 - 40 ml IV UD PRN PRN Reason: SALINE FLUSH Last Admin: 01/01/20 11:26 Dose: 10 ml Documented by: Discharge Diet: No Restrictions Discharge Activity: Return to Normal Activity Call your doctor if you observe: Fever of 101 or Higher, Shortness of breath Home Medications: Medications to take at Discharge Guaifenesin [Mucinex] 600 mg PO BID #10 tab.er.12h 01/02/20 Levofloxacin 750 mg PO DAILY #5 tab 01/02/20 Following Prescriptions Were Given to Patient: Levofloxacin 750 mg PO DAILY #5 tab Transmission Status: Pending to [facility] Guaifenesin [Mucinex] 600 mg PO BID #10 tab.er.12h Transmission Status: Pending to [facility] Primary Care Physician: Care Physician,No Primary [NON-STAFF] - Please Follow Up With: Margaret Moore DO When: 1-2 weeks Disposition: Home Minutes spent on discharge:: 32 Patient Condition:: Good Medical Necessity - Tobacco Use Smoking Status: Never smoker Meaningful Use Info Meaningful Use Diagnoses (Choose all that apply): None applicable Inpatient E&M: 49946 Disch Hosp
--- NOTE | 2020-01-02 11:57 | PHA.DC.MC ---
Pharmacy Service has performed discharge medication reconciliation and counseling for this patient. The patient was counseled on the following discharge medications and changes in medications for homegoing were reviewed. 1. LEVAQUIN The Reason for Use, instructions for use, and potential side effects were reviewed for all new medications. The patient's questions regarding all of their medications were answered. The patient was able to verbally demonstrate an understanding of their discharge medications. Home Medications Guaifenesin [Mucinex] 600 mg PO BID #10 tab.er.12h 01/02/20 Levofloxacin 750 mg PO DAILY #5 tab 01/02/20 The patient's discharge medication list was reviewed for discrepancies and discrepancies were resolved.
== END 2020-01-02 13:15 | disposition home or self-care (01) | DRG 195 ==
LOC: ED 01-01 05:49 → PCU 01-01 06:54
PROVIDERS: Admitting Provider Family Medicine; Emergency Provider Emergency Medicine; PCP Family Medicine
DX: J18.9 Pneumonia, unspecified organism (principal); R09.02 Hypoxemia; M19.90 Unspecified osteoarthritis, unspecified site; Z23 Encounter for immunization
CPT/HCPCS: 36415; 71045; 71275; 74177; 80048; 81001; 84484; 85025; 87635; 93005; 94640; 99285; G0008; J7030; J7040; Q9967; 90686; A4216; J0696; J2405; U0003

== ENCOUNTER → 2020-02-01 11:59 | Outpatient (CLI) | payer MEDICARE, BC, SELFPAY ==
[2020-01-01 07:24] VITALS: BMI 37.8
[2020-02-01 15:20] LABS: Absolute Lymphocyte Count 0.88 X10^3/uL (0.83-4.51); Absolute Neutrophil Count 2.4 X10^3/uL (2.0-7.7); Basophil# 0.01 X10^3/uL; Basophil% 0.3 % (0-1); Eosinophil# 0.14 X10^3/uL; Eosinophils% 3.6 % (0-5); Hemoglobin 13.4 g/dL (12.0-15.0); Lymphocyte # 0.88 X10^3/ul (4.0); Lymphocyte % 22.6 % (19-41); Mean Corp Hgb Conc 31.9 g/dL (32-36); Mean Corpuscular Hgb 30.4 pg (27.0-32.0); Mean Corpuscular Volume 95.2 fL (81-99); Mean Platelet Vol. 9.2 fl (6.2-12.0); Monocyte# 0.46 X10^3/uL; Monocyte% 11.8 % (0-10); NRBC Flagged by Analyzer 0 % (0-5); Neutrophil # 2.39 X10^3/uL (2.7-7.7); Neutrophil % 61.2 % (47-70); Platelet Count 311 K/mm3 (150-450); RBC Distribution Width CV 13.1 % (11.6-14.6); Red Blood Count 4.41 M/mm3 (4.2-5.4); White Blood Count 3.9 K/mm3 (4.4-11.0)
[2020-02-01 15:42] LABS: Vitamin B12 1545 pg/mL (211-911); Vitamin D,25 Hydroxy 25.4 ng/mL
[2020-02-01 15:50] LABS: AST(SGOT) 12 U/L (15-37); Alanine Aminotransfer ALT/SGPT 20 U/L (13-56); Albumin, Serum 3.6 g/dL (3.2-5.0); Alkaline Phosphatase 69 U/L (45-117); Anion Gap 5 (5-15); BUN 10 mg/dL (7-18); BUN/Creat Ratio 18.3 RATIO (10-20); Calcium,Total 8.7 mg/dL (8.5-10.1); Chloride 109 mmol/L (98-107); Creatinine, Serum 0.55 mg/dL (0.55-1.02); EST Glomerular Filtration Rate 118 mL/min (>60); Est Glom Filt Rate - Afr Amer 143 mL/min (>60); Ferritin 53 ng/mL (8-252); Free T3 2.7 pg/mL (2.18-3.98); Globulin 3.6 g/dL (2.2-4.2); Glucose 75 mg/dL (74-106); Iron 52 ug/dL (50-170); Potassium 4.1 mmol/L (3.5-5.1); Protein, Total 7.2 g/dL (6.4-8.2); Sodium Level 142 mmol/L (136-145); T4 Free Direct 1.17 ng/dL (0.76-1.46); Thyroid Stim Hormone (TSH) 1.34 uIU/mL (0.358-3.74)
== END ==
PROVIDERS: PCP Family Medicine; Visit Provider Family Medicine
DX: D64.9 Anemia, unspecified (principal); R53.83 Other fatigue; E55.9 Vitamin D deficiency, unspecified; Z51.81 Encounter for therapeutic drug level monitoring
CPT/HCPCS: 36415; 80053; 82306; 82607; 82728; 83540; 84439; 84443; 84481; 85025

== ENCOUNTER 2021-06-28 13:44 | Outpatient (CLI) | payer MEDICARE, BC, SELFPAY ==
--- NOTE | 2021-06-28 13:48 | BI_ITS ---
MAMMOGRAPHY - BILATERAL SCREENING REASON FOR EXAM: Female, 66 years old. Routine annual screening examination. PERTINENT HISTORY: Mother with breast cancer. TECHNIQUE: Digital bilateral breast odalys (3D mammographic acquisition) in the CC and MLO projections. 2-D mediolateral oblique (MLO) and craniocaudad (CC) views of both breasts were obtained. CAD: Full Field Digital Mammography with Computer Added Detection was performed. COMPARISON: No comparison mammograms available at this time. If any prior films become available, an addendum to this report can be generated. FINDINGS: Breast Composition: The breasts are heterogeneously dense, which may obscure small masses. There are no dominant masses or suspicious calcifications. A cluster of amorphous calcifications are seen in the deep inferior medial aspect of the right breast. Biopsy is recommended. No other significant abnormalities are identified. BI/SCRN MAMM (CAD)W/ODALYS BILAT IMPRESSION: A cluster of amorphous calcifications are seen in the deep inferior medial aspect of the right breast. Biopsy is recommended. ASSESSMENT CATEGORY: BIRADS Category 4: Suspicious - Biopsy Should Be Considered. A letter regarding these results will be sent to the patient by the facility within 30 days. Approximately 10% of breast cancers are not detected by mammography. A normal mammogram should not delay biopsy of a clinically suspicious abnormality. [id number] Electronically Signed: Roderick Lyons MD at 8:31 EDT ,
--- NOTE | 2021-06-28 13:48 | US_ITS ---
STUDY: TRANSVAGINAL NON-OBSTETRICAL PELVIC ULTRASOUND EXAMINATION OF 1403 HOURS ON 06/28/2021 CLINICAL: 66-year-old female with a right ovarian cyst and pelvic pain. TECHNIQUE: A transvaginal non-obstetrical pelvic ultrasound examination was performed per protocol. COMPARISON: None. FINDINGS: There is a small retroverted uterus measuring 4.9 cm in length by 3.2 cm AP diameter by 3.0 cm in transverse diameter. There is endometrial thickness of 8 mm. Endometrium has a normal appearance. There is an 8 mm nabothian simple cyst. There is a 1.0 cm x 1.2 cm x 9 mm posterior body uterine fibroid. There is no evidence of other uterine fibroids. The right ovary measures 4.1 cm x 4.1 cm x 3.6 cm and contains a 3.8 cm x 2.3 cm x 2.6 cm simple ovarian cyst. There is no evidence of right ovarian solid mass lesions. There is no evidence of right ovarian torsion. The left ovary measures 1.8 cm x 1.2 1.47 m. There is no evidence of left ovarian torsion, nor evidence of left ovarian cystic solid mass lesions. There is no evidence of adnexal masses or free fluid in the cul-de-sac. US/Transvaginal Non- IMPRESSION: 1. Small retroverted uterus with an 8 mm thick normal-appearing endometrium. 2. Presence of an 8 mm simple nabothian cyst. 3. Presence of a 1.2 cm in diameter posterior uterine body fibroid. There is no evidence of other uterine fibroids. 4. Presence of a 3.8 cm simple right ovarian cyst. 5. No evidence of other ovarian cystic or solid mass lesions or torsion. 6. No evidence of adnexal masses or free fluid in the cul-de-sac. Electronically Signed: David Shahid MD at 19:52 EDT ,
--- NOTE | 2021-07-03 16:19 | NURSING ---
THIS RN SPOKE WITH PATIENT WHO HAD NO PHYSICIAN PREFERENCE FOR SURGEON REGARDING RECENT BREAST IMAGING. HAS SEEN DR HUSSEIN IN THE PAST. THIS RN CALLED [facility] TO LEAVE AIL TO CALL PATIENT AND SET UP CONSULTATION APPT. REFERRAL FROM DR BARAHONA ALSO FAXED.
== END 2021-06-28 23:59 | disposition home or self-care (01) ==
LOC: OPUS 13:45
PROVIDERS: PCP Family Medicine; Referring Provider Family Medicine; Visit Provider Family Medicine
DX: Z12.31 Encounter for screening mammogram for malignant neoplasm of breast (principal); Z80.3 Family history of malignant neoplasm of breast; N83.201 Unspecified ovarian cyst, right side
CPT/HCPCS: 76830; 77063; 77067

== ENCOUNTER 2021-07-16 13:22 | Outpatient (CLI) | payer MEDICARE, BC, SELFPAY ==
--- NOTE | 2021-07-16 14:30 | BRBX_PTH ---
PATIENT: CELESTE NELSON) Lisandra LOC: [facility] U#:[id number] AGE/SX: 66/F ROOM: RE07/16/[address]: Dr. Sayda Reed MD : 1955 BED: DIS: 07/16/2021 SPEC #: [id number] RECD: 07/16/21 14:45 STATUS: JACQUES RELevar #: [id number] MARCOS: 07/16/21 14:[address]: Sayda Reed DEPT: SURGICAL PATHOLOGY RECD BY: Gaye Sepulveda ENTERED: 07/17/21 10:05 SP TYPE: BREAST BX OTHR DR: Dr. Margaret Moore DO Tissues: Right breast, NOS Procedures: Surgery Specimen Level IV HEADER OPERATION: Right breast stereotactic biopsy PRE-OP DIAGNOSIS: Cluster or amorphous calcifications seen deep inferior medial aspect of right breast TISSUE SUBMITTED: Right breast core tissue ISCHEMIC TIME: 1 minute FIXATION TIME: 29 hours MICROSCOPIC DIAGNOSIS Right breast, stereotactic core biopsy: Hyalinized fibroadenoma with clustered microcalcifications. Focal ductal hyperplasia without atypia. Mild fibrocystic change. No evidence of malignancy. AM:samy 07/18/2021 MICROSCOPIC DESCRIPTION Slides are reviewed. GROSS DESCRIPTION Received in fixative is one container labeled with the patient's name and designated right breast. The specimen consists of multiple elongated fragments of chawla-yellow fibroadipose tissue that in aggregate measure 5 x 2 x 0.3 cm. The entire specimen is submitted in two cassettes. / SJ:samy 07/16/2021 TC:5 CPT: 55229
--- NOTE | 2021-07-16 16:14 | PCM.OPRPT ---
Report of Operation Date of Procedure: 07/16/21 Pre-Operative Diagnosis: abnormal right breast calcifications on mammograms Post-Operative Diagnosis: same Surgery/Procedure Performed:: right breast stereotactic biopsy Description of Surgical Findings:: inferior right breast abnormal calcifications Surgeon: Sayda Reed Type of Anesthesia: Local Specimen's removed: right breast tissue Estimated Blood Loss (mL): minimal Description of Procedure: After informed consent was given, the patient was brought into the Breast Biopsy suite. Appropriate time out protocol was followed. The patient was placed in the prone position on the stereotactic biopsy table. The patient?s right breast was then placed in the opening at the head of the biopsy table. A account classification clerk compression mammogram was then obtained in the medial view. The suspicious radiological lesion was thus identified. Stereo pictures of the lesion were then taken for XYZ coordinates. The Mammotome biopsy stylus was then positioned where it would be entering into the patient?s breast. The skin at this site was then cleansed with a surgical skin preparation. The skin and subcutaneous tissues at this site were then infiltrated with 1% xylocaine. A small skin incision was made with an 11 blade scalpel. The biopsy stylus was then positioned into the patient?s breast at the proper coordinates of depth. Using the Mammotome vacuum-assist device, several core samples of breast tissue were obtained. A specimen mammogram was the obtained. It revealed that the abnormal calcifications were within the specimen. I reviewed this personally and concluded that the tissue sampling was adequate. A hemostatic marker clip was then placed into the biopsy cavity and a account classification clerk film revealed that it was properly deployed. The patient was then placed in the supine position and pressure was applied to the breast until no active bleeding was noted. A nylon suture was applied to reapproximate the skin. A unilateral mammogram in the CC and MLO view were then taken which revealed that the marker clip was in the same area as the previous suspicious lesion. The patient tolerated the procedure well and was discharged from the Breast Biopsy suite in good condition. Complications none noted
== END 2021-07-16 23:59 | disposition home or self-care (01) ==
LOC: BIRAD 13:24
PROVIDERS: PCP Family Medicine; Visit Provider Surgery
DX: N60.12 Diffuse cystic mastopathy of left breast (principal); R92.8 Other abnormal and inconclusive findings on diagnostic imaging of breast
CPT/HCPCS: 19101; 19081; 88305; J7050

== ENCOUNTER 2022-06-05 13:30 | Outpatient (RCR) | payer MEDICARE, BC, SELFPAY ==
--- NOTE | 2022-02-24 14:49 | HP.PTEVAL ---
Patient's Visit Information CELESTE NELSON is a 66 year old F referred to Physical Therapy by KAMILLA Crews with a diagnosis of Bilateral Knee and Ankle Pain. Date of Evaluation: 02/24/22 Physical Therapist: Lizette Rob DPT - Visit Plan Frequency: 2x /Week Duration: 4 Weeks Plan: Focus on LE and core strength/stabilization with functional mobility. HEP Given IE: bridge, hip abd, hip add, SLR, SLS - Subjective Goes by Judith- She has an AFO on her left ankle- she saw ortho who gave her a rxn brace on both knees. So she has issues with both of her LE. She had an orthotic for the past 5 years and she needed a new one- so she got a new one in the October on the left and a custom orthotic on the right foot. She feels that she is not able to stand up or straight for very long. She felt like her body was more shifted. 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 She went to see ortho last week and they gave her rxn braces for bilateral knees. She only wears the braces to work- maybe 5-6 hours. She does notice that it makes her stand up straight and it makes the dissipates the discomfort- swelling and heavy feeling- takes Meloxicam and told her to take Tylenol and also takes that. Steps are an issue but she does have them and does them daily. The right knee is a little worse than the left one. She doesn't feel like its pain in the knees more just uncomfortable. Sleep: disturbed- hard to get comfortable- - Objective Posture: FH, RS- can correct with verbal cues but does not maintain. Gait: antalgic- decreased stance on the left LE- pelvic translation- no AD. Sit to Stand: requires UE A. SLS: 3 seconds on her right and 2 seconds on her left with moderate hip drop bilateral. HR/TR: able with UE A. ROM:WFL in all planes of the LE and lumbar spine. Strength: Core: fair minus, Hip: 4-/5 throughout, Knee:4+/5, Ankle: 5/5 - Balance/Special Test Scores Lower Extremity Functional Score: 28 - Goals Goal 1:: Patient will be I with HEP and progression Goal Time Frame: 4-6 Weeks Goal 2:: Patient will report ability to stand for more than 4 hours at work without issues Goal Time Frame: 4-6 Weeks Goal 3:: Patient will maintain proper posture t/o tx session to demo increased core s/s Goal Time Frame: 4-6 Weeks Goal 4:: Patient will asc/desc 8 recip with 1 HR with good technique Goal Time Frame: 4-6 Weeks Goal 5:: Patient will report 80% improvement - Rehabilitation Potential Physical Therapy Diagnosis: Patient presents with hypomobility- she has decreased LE and core strength/stabilization, flex and muscular endurance leading to abnormal gait and increased pain with ADL's/work related tasks. Rehabilitation Potential: Good - Anticipated Interventions Patient/Client Instruction: Educate patient on: Benefits of Fitness Program Therapeutic Exercise to Include: Strength training, Endurance training, Balance training, Coordination, Agility training, Body mechanics, Postural training, Flexibilty training, Gait and locomotor training, Neuromotor development, Dynamic Lumbar Stabilization, Scapular Strength/Stabilization For the Purpose of:: To improve muscle performance and motor function Cryotherapy (ice pack, ice massage): Yes Thermo therapy (hot pack): Yes Thank you for the opportunity to evaluate your patient. For Medicare and Medicare HMO plans, please review the plan of care and approve it. It will need to be FAXED BACK to us at [phone] for Medicare purposes. For Medicare only, by signing this I certify the plan of care. Please let me know if there are questions or concerns regarding this plan of care. Physician Signature: Date:
--- NOTE | 2022-03-27 14:58 | HP.PTREVAL ---
KAMILLA Crews, It has been my pleasure to treat CELESTE NELSON over the last 9 visits for Bilateral Knee and Ankle Pain. Please see the progress note below for an update on the physical therapy plan of care! Subjective: Patient reports that she feels that PT has really helped. She feels that she is able to stand more. At work she has noticed that she can be at work longer without feeling like she can't wait to leave. She feels that she needs to continue strength training. She is being more active at home. Objective/Function: Posture: FH, RS- can correct with verbal cues but does not maintain. Gait: antalgic- decreased stance on the left LE- pelvic translation- no AD. Sit to Stand: requires UE A. SLS: Right: 15 sec Left: 5 sec. HR/TR: able with UE A. ROM:WFL in all planes of the LE and lumbar spine. Strength: Core: fair minus, Hip: 4/5 throughout, Knee:4+/5, Ankle: 5/5 Plan Plan: 03/27: Continue POC 2x a week for 4 weeks. Focus on LE and core strength/stabilization with functional mobility Balance/Gait/Functional tests - Balance/Special Test Scores Lower Extremity Functional Score: 40 TUG Test Time Seconds: 16 Tug Test: <20 sec.=mostly independent Goals Goal 1:: Patient will be I with HEP and progression Goal Time Frame: 4-6 Weeks Goal 2:: Patient will report ability to stand for more than 4 hours at work without issues Goal Time Frame: 4-6 Weeks Goal 3:: Patient will maintain proper posture t/o tx session to demo increased core s/s Goal Time Frame: 4-6 Weeks Goal 4:: Patient will asc/desc 8 recip with 1 HR with good technique Goal Time Frame: 4-6 Weeks Goal 5:: Patient will report 80% improvement Anticipated Interventions Patient/Client Instruction: Educate patient on: Benefits of Fitness Program Therapeutic Exercise to Include: Strength training, Endurance training, Balance training, Coordination, Agility training, Body mechanics, Postural training, Flexibilty training, Gait and locomotor training, Neuromotor development, Dynamic Lumbar Stabilization, Scapular Strength/Stabilization For the Purpose of:: To improve muscle performance and motor function Cryotherapy (ice pack, ice massage): Yes Thermo therapy (hot pack): Yes Please do not hesitate to contact me at [phone] by phone or if you have questions or concerns regarding this new plan of care! Sincerely, SANDRINE HennessyT
--- NOTE | 2022-05-08 14:24 | HP.PTREVAL ---
KAMILLA Crews, It has been my pleasure to treat CELESTE NELSON over the last 18 visits for Bilateral Knee and Ankle Pain. Please see the progress note below for an update on the physical therapy plan of care! Subjective: Patient reports that she feels better but is still challenged to stand for 4 hours at work. She wants to be more indep with exercises to continue HEP as she knows this will not be a short term thing. Objective/Function: Posture: FH, RS- can correct with verbal cues but does not maintain. Stairs: asc/desc 8 recip with 2 HR- decreased control with descent Gait: slightly antalgic- decreased stance on the left LE- pelvic translation- no AD. Sit to Stand: no UE A. SLS: Right: 15 sec Left:8 sec. HR/TR: able with UE A. ROM:WFL in all planes of the LE and lumbar spine. Strength: Core: fair minus, Hip: 4/5 throughout, Knee:5/5, Ankle: 5/5 Plan Plan: 05/08/22: Continue 2x a week for 3 weeks- progression to HEP through gym membership. 03/27: Continue POC 2x a week for 4 weeks. Focus on LE and core strength/stabilization with functional mobility Balance/Gait/Functional tests - Balance/Special Test Scores Lower Extremity Functional Score: 40 TUG Test Time Seconds: 16 Tug Test: <20 sec.=mostly independent Goals Goal 1:: Patient will be I with HEP and progression Goal Time Frame: 4-6 Weeks Goal 2:: Patient will report ability to stand for more than 4 hours at work without issues Goal Time Frame: 4-6 Weeks Goal 3:: Patient will maintain proper posture t/o tx session to demo increased core s/s Goal Time Frame: 4-6 Weeks Goal 4:: Patient will asc/desc 8 recip with 1 HR with good technique Goal Time Frame: 4-6 Weeks Goal 5:: Patient will report 80% improvement Anticipated Interventions Patient/Client Instruction: Educate patient on: Benefits of Fitness Program Therapeutic Exercise to Include: Strength training, Endurance training, Balance training, Coordination, Agility training, Body mechanics, Postural training, Flexibilty training, Gait and locomotor training, Neuromotor development, Dynamic Lumbar Stabilization, Scapular Strength/Stabilization For the Purpose of:: To improve muscle performance and motor function Cryotherapy (ice pack, ice massage): Yes Thermo therapy (hot pack): Yes Please do not hesitate to contact me at [phone] by phone or if you have questions or concerns regarding this new plan of care! Sincerely, SANDRINE HennessyT
--- NOTE | 2022-06-05 14:27 | HP.PTDCSUM ---
It has been my pleasure to treat CELESTE NELSON referred by KAMILLA Crews, with the diagnosis of Bilateral Knee and Ankle Pain for a total of 24 visit(s). Discharge Date: Please see the following information for a summary of their discharge status. Subjective: Patient reports that she is doing so much better- she is able to roll over in bed and is working 4 hours shifts and is wearing braces and is much more confident. She is only wearing the braces just to work. Planning to continue with health and wellness and feels good about the exercises. % Improvement: 90 Objective/Function: Posture: FH, RS- can correct with verbal cues but does not maintain. Stairs: asc/desc 8 recip with 2 HR- decreased control with descent Gait: slightly antalgic- decreased stance on the left LE- pelvic translation- no AD. Sit to Stand: no UE A. HR/TR: able with UE A. ROM:WFL in all planes of the LE and lumbar spine. Strength: Core: fair minus, Hip: 4+/5 throughout, Knee:5/5, Ankle: 5/5 Goal 1:: Patient will be I with HEP and progression Goal 2:: Patient will report ability to stand for more than 4 hours at work without issues Goal 3:: Patient will maintain proper posture t/o tx session to demo increased core s/s Goal 4:: Patient will asc/desc 8 recip with 1 HR with good technique Goal 5:: Patient will report 80% improvement Plan: 06/05/22: Discharge to I HEP. 05/08/22: Continue 2x a week for 3 weeks- progression to HEP through gym membership. 03/27: Continue POC 2x a week for 4 weeks. Focus on LE and core strength/stabilization with functional mobility If there are questions or concerns regarding this patient's physical therapy, please feel free to call me at [phone]. Thank you for the referral of this patient. Sincerely, Lizette Rob, DPT Balance/Gait/Functional tests - Balance/Special Test Scores Lower Extremity Functional Score: 43 TUG Test Time Seconds: 16 Tug Test: <20 sec.=mostly independent
== END 2022-06-05 15:02 | disposition home or self-care (01) ==
LOC: PT 13:30
PROVIDERS: PCP Family Medicine
DX: M17.0 Bilateral primary osteoarthritis of knee (principal); M25.571 Pain in right ankle and joints of right foot; M25.572 Pain in left ankle and joints of left foot
CPT/HCPCS: 97110; 97162; 97164

== ENCOUNTER → 2022-08-19 | Outpatient (CLI) | payer MEDICARE, BC, SELFPAY ==
[2022-08-19 12:23] LABS: Absolute Lymphocyte Count 1.03 X10^3/uL (0.83-4.51); Absolute Neutrophil Count 2.4 X10^3/uL (2.0-7.7); Basophil# 0.02 X10^3/uL; Basophil% 0.5 % (0-1); Eosinophil# 0.14 X10^3/uL; Eosinophils% 3.4 % (0-5); Hematocrit 41.8 % (37-47); Hemoglobin 13.6 g/dL (12.0-15.0); Lymphocyte # 1.03 X10^3/ul (0.83-4.51); Lymphocyte % 25.2 % (19-41); Mean Corp Hgb Conc 32.5 g/dL (32-36); Mean Corpuscular Hgb 30.6 pg (27.0-32.0); Mean Corpuscular Volume 93.9 fL (81-99); Mean Platelet Vol. 8.7 fl (6.2-12.0); Monocyte# 0.44 X10^3/uL; Monocyte% 10.8 % (0-10); NRBC Flagged by Analyzer 0 % (0-5); Neutrophil # 2.44 X10^3/uL (2.7-7.7); Neutrophil % 59.6 % (47-70); Platelet Count 360 K/mm3 (150-450); RBC Distribution Width CV 12.9 % (11.6-14.6); RBC Distribution Width SD 44.3 fl (35.1-43.9); Red Blood Count 4.45 M/mm3 (4.2-5.4); White Blood Count 4.1 K/mm3 (4.4-11.0)
[2022-08-19 13:03] LABS: AST(SGOT) 16 U/L (15-37); Alanine Aminotransfer ALT/SGPT 27 U/L (13-56); Albumin, Serum 3.7 g/dL (3.2-5.0); Alkaline Phosphatase 69 U/L (45-117); Anion Gap 8 (5-15); BUN 15 mg/dL (7-18); BUN/Creat Ratio 22.7 RATIO (10-20); Calcium,Total 9.4 mg/dL (8.5-10.1); Chloride 106 mmol/L (98-107); Cholesterol 193 mg/dL (200); Creatinine, Serum 0.66 mg/dL (0.55-1.02); EST Glomerular Filtration Rate 94 mL/min (>60); Est Glom Filt Rate - Afr Amer 114 mL/min (>60); Globulin 3.8 g/dL (2.2-4.2); Glucose 90 mg/dL (74-106); High Density Lipoprotein 58 mg/dL; Potassium 4.1 mmol/L (3.5-5.1); Protein, Total 7.5 g/dL (6.4-8.2); Sodium Level 142 mmol/L (136-145); Triglycerides 125 mg/dL; Very Low Density Lipoprotein 25 mg/dL (5-40)
[2022-08-19 13:55] LABS: Vitamin D,25 Hydroxy 52.6 ng/mL
== END | disposition home or self-care (01) ==
LOC: BFHLAB 09:18
PROVIDERS: PCP Family Medicine; Referring Provider Family Medicine; Visit Provider Family Medicine
DX: E55.9 Vitamin D deficiency, unspecified (principal); I10 Essential (primary) hypertension; E78.5 Hyperlipidemia, unspecified; Z51.81 Encounter for therapeutic drug level monitoring
CPT/HCPCS: 36415; 80053; 80061; 82306; 85025

== ENCOUNTER → 2022-10-20 | Outpatient (CLI) | payer MEDICARE, BC, SELFPAY ==
--- NOTE | 2022-10-20 13:59 | BI_ITS ---
MAMMOGRAPHY - BILATERAL SCREENING 3-D TOMOSYNTHESIS REASON FOR EXAM: Female, 67 years old. Routine screening PERTINENT HISTORY: Mother with breast cancer.. TECHNIQUE: 2-D mammograms and 3-D Tomosynthesis of the breast (s) were performed. CAD was performed. COMPARISON: 06/28/2021 FINDINGS: The breast composition is heterogeneously dense that can obscure small breast masses. Scattered benign punctate calcifications are seen. No dense spiculated masses or suspicious microcalcifications are identified. No architectural distortion is identified. There is no skin thickening or retraction. There has been no significant change since the prior study. BI/SCRN MAMM (CAD)W/ODALYS BILAT IMPRESSION: No mammographic signs of malignancy. Routine yearly mammograms recommended. ASSESSMENT CATEGORY: BIRADS Category 2: Benign. A letter regarding these results will be sent to the patient by the facility within 30 days. FOLLOW UP RECOMMENDATION: Yearly follow up mammogram recommended. (A) Approximately 10% of breast cancers are not detected by mammography. A normal mammogram should not delay biopsy of a clinically suspicious abnormality. Electronically Signed: Carl Cochran MD at 14:57 EDT ,
== END | disposition home or self-care (01) ==
LOC: OPBI 13:57
PROVIDERS: PCP Family Medicine; Referring Provider Family Medicine; Visit Provider Family Medicine
DX: Z12.31 Encounter for screening mammogram for malignant neoplasm of breast (principal); Z80.3 Family history of malignant neoplasm of breast
CPT/HCPCS: 77063; 77067

== ENCOUNTER → 2023-09-15 | Outpatient (CLI) | payer MEDICARE, BC, SELFPAY ==
[2023-09-15 12:14] LABS: Absolute Lymphocyte Count 1.05 X10^3/uL (0.83-4.51); Absolute Neutrophil Count 2.6 X10^3/uL (2.0-7.7); Basophil# 0.03 X10^3/uL; Basophil% 0.7 % (0-1); Eosinophil# 0.18 X10^3/uL; Eosinophils% 4.2 % (0-5); Hematocrit 40.8 % (37-47); Hemoglobin 13.4 g/dL (12.0-15.0); Lymphocyte # 1.05 X10^3/ul (0.83-4.51); Lymphocyte % 24.5 % (19-41); Mean Corp Hgb Conc 32.8 g/dL (32-36); Mean Corpuscular Hgb 30.3 pg (27.0-32.0); Mean Corpuscular Volume 92.3 fL (81-99); Monocyte# 0.44 X10^3/uL; Monocyte% 10.3 % (0-10); NRBC Flagged by Analyzer 0 % (0-5); Neutrophil # 2.58 X10^3/uL (2.7-7.7); Neutrophil % 60.1 % (47-70); Platelet Count 358 K/mm3 (150-450); RBC Distribution Width CV 12.8 % (11.6-14.6); RBC Distribution Width SD 43.6 fl (35.1-43.9); Red Blood Count 4.42 M/mm3 (4.2-5.4); White Blood Count 4.3 K/mm3 (4.4-11.0)
[2023-09-15 12:41] LABS: Vitamin D,25 Hydroxy 29.9 ng/mL
[2023-09-15 13:01] LABS: AST(SGOT) 16 U/L (15-37); Alanine Aminotransfer ALT/SGPT 22 U/L (13-56); Albumin, Serum 3.6 g/dL (3.2-5.0); Alkaline Phosphatase 74 U/L (45-117); Anion Gap 6 (5-15); BUN 15 mg/dL (7-18); Calcium,Total 9.4 mg/dL (8.5-10.1); Chloride 107 mmol/L (98-107); Cholesterol 203 mg/dL (200); Creatinine, Serum 0.72 mg/dL (0.55-1.02); EST Glomerular Filtration Rate 86 mL/min (>60); Est Glom Filt Rate - Afr Amer 104 mL/min (>60); Globulin 3.7 g/dL (2.2-4.2); Glucose 77 mg/dL (74-106); High Density Lipoprotein 60 mg/dL; Potassium 3.7 mmol/L (3.5-5.1); Protein, Total 7.3 g/dL (6.4-8.2); Sodium Level 140 mmol/L (136-145); Triglycerides 129 mg/dL; Very Low Density Lipoprotein 26 mg/dL (5-40)
== END | disposition home or self-care (01) ==
LOC: BFHLAB 10:15
PROVIDERS: PCP Family Medicine; Referring Provider Family Medicine; Visit Provider Family Medicine
DX: I10 Essential (primary) hypertension (principal); E55.9 Vitamin D deficiency, unspecified; E78.5 Hyperlipidemia, unspecified; Z51.81 Encounter for therapeutic drug level monitoring
CPT/HCPCS: 36415; 80053; 80061; 82306; 85025

== ENCOUNTER → 2023-10-22 | Outpatient (CLI) | payer MEDICARE, BC, SELFPAY ==
--- NOTE | 2023-10-22 14:38 | BI_ITS ---
MAMMOGRAPHY - BILATERAL SCREENING REASON FOR EXAM: Female, 68 years old. Routine annual screening examination. PERTINENT HISTORY: Mother with breast cancer. Prior right stereotactic breast biopsy. TECHNIQUE: Digital bilateral breast odalys (3D mammographic acquisition) in the CC and MLO projections. 2-D mediolateral oblique (MLO) and craniocaudad (CC) views of both breasts were obtained. CAD: Full Field Digital Mammography with Computer Added Detection was performed. COMPARISON: Comparison is made with prior study dated October 20, 2022 and June 28, 2021. FINDINGS: Breast Composition: The breasts are heterogeneously dense, which may obscure small masses. There are no dominant masses or suspicious calcifications. No other significant abnormalities are identified. There has been no significant change since the prior study. BI/SCRN MAMM (CAD)W/ODALYS BILAT IMPRESSION: Stable bilateral screening mammogram. Yearly follow-up mammogram recommended. (A) ASSESSMENT CATEGORY: BIRADS Category 1: Negative. A letter regarding these results will be sent to the patient by the facility within 30 days. Approximately 10% of breast cancers are not detected by mammography. A normal mammogram should not delay biopsy of a clinically suspicious abnormality. [id number] Electronically Signed: Roderick Lyons MD at 15:24 EDT ,
== END | disposition home or self-care (01) ==
LOC: OPBI 14:36
PROVIDERS: PCP Family Medicine; Referring Provider Family Medicine; Visit Provider Family Medicine
DX: Z12.31 Encounter for screening mammogram for malignant neoplasm of breast (principal); Z80.3 Family history of malignant neoplasm of breast
CPT/HCPCS: 77063; 77067

== ENCOUNTER → 2024-09-27 | Outpatient (CLI) | payer MEDICARE, BC, SELFPAY ==
--- NOTE | 2024-09-27 13:28 | NEURO ---
NCS and/or EMG Patient Report Ordering Doctor: Margaret Moore DATE OF SERVICE: 09/27/24 Clinical Summary: 69 year old female patient with symptoms of discomfort from the posterior thigh down to the mid-calf region in the left lower extremity. Nerve Conduction Studies Summary: Nerve conduction studies of the left lower extremity were within normal range. Needle Examination Summary: Needle examination of select muscles of the left lower extremity was normal. Impression: This is a normal study. There is no electrodiagnostic evidence of a left lumbosacral radiculopathy, peroneal mononeuropathy, or large-fiber peripheral polyneuropathy. Multi Select Codes Neurology Neurology Interp Codes: 02763-02 Musc test done w/n test comp (interp) (1) and 93481-96 Nrv cndj tst 3-4 studies (interp)
--- OUTSIDE RECORDS SUMMARY | 2024-09-27 22:12 | XMS RPT_ITS | CCD ---
Author Organization [facility] Care Team Providers Care Stockholder Name Role Phone Unavailable Primary Care Provider Dr. Margaret Meza Primary Care Provider Dr. Magraret Moore Referring Provider KAMILLA Mayers Attending Provider Dr. Ambrose Berman Attending Provider [phone] Malys, Margaret Referring Unavailable Malys, Margaret Attending Unavailable Malys, Margaret Primary Care Unavailable Malys, Margaret Referring Unavailable Malys, Margaret Attending Unavailable Malys, Margaret Primary Care Unavailable Malys, Margaret Referring Unavailable Malys, Margaret Attending Unavailable Malys, Margaret Primary Care Unavailable Malys, Margaret Referring Unavailable BorrusoAnam Attending Unavailable Malys, Margaret Primary Care Unavailable Medications Current Medications Medication Drug Class(es) Dates Sig (Normalized) Sig (Original) Ca Carb-D3-Mag My-Xaw-Zsoi-Zn (Caltrate + D3 Plus Minerals) 300 mg-800 unit -25 mg-0.5 mg tablet (2 sources) Start: 02-12-2022 take 1 tablet by mouth once daily Ca Carb-D3-Mag En-Ogi-Mbdv-Zn (Caltrate + D3 Plus Minerals) 300 mg-800 unit -25 mg-0.5 mg tablet Active 1 TABLET PO DAILY February 12, 2022 1:00am Start: 02-12-2022 take 1 tablet by jose th once daily Ca Carb-D3-Mag Nl-Mvr-Ucys-Zn (Caltrate + D3 Plus Minerals) 300 mg-800 unit -25 mg-0.5 mg tablet Active 1 TABLET PO DAILY February 12, 2022 12:00am hydroCHLOROthiazide 12.5 mg oral tablet (5 sources) Thiazide Diuretic Start: 02-12-2022 take 12.5 mg by mouth once daily Hydrochlorothiazide Active 12.5 MG PO DAILY February 12, 2022 1:00am Start: 05-01-2021 take 1 tablet by jose th once daily hydroCHLOROthiazide (HYDRODIURIL, ESIDRIX) 12.5 mg tablet Take 12.5 mg by mouth once daily. 0 05/01/2021 Active Comment on above: Take 12.5 mg by mout h once daily. meloxicam 15 mg oral tablet (5 sources) Nonsteroidal Anti-inflammatory Drug Start: 02-12-2022 take 15 mg by mouth once daily Meloxicam Active 15 MG PO DAILY February 12, 2022 1:00am Start: 05-01-2021 take 1 tablet by jose th once daily meloxicam (MOBIC) 15 mg tablet Take 15 mg by mouth once daily. 0 05/01/2021 Active Comment on above: Take 15 mg by mouth once daily. Peuibvth-Coe-Nu-Lyc open-Lutein (Centrum Silver) 0.4 mg-300 mcg- 250 mcg tablet (2 sources) Start: 02-12-2022 take 1 tablet by mouth once daily Dmhstvvy-Crs-Ox-Lyc open-Lutein (Centrum Silver) 0.4 mg-300 mcg- 250 mcg tablet Active 1 TABLET PO DAILY February 12, 2022 1:00am Start: 02-12-2022 take 1 tablet by jose th once daily Kfsvyipc-Ctu-Rr-Lycopen-Lutein (Centrum Silver) 0.4 mg-300 mcg- 250 mcg tablet Active 1 TABLET PO DAILY February 12, 2022 12:00am vitamin b12 1 mg sublingual tablet (2 sources) Vitamin B12 Start: 02-12-2022 Cyanocobalamin (Vitamin B-12) Active 1000 MCG SL DAILY February 12, 2022 1:00am Completed/Discontinued Medications Medication Drug Class(es) Dates Sig (Normalized) Sig (Original) ascorbic acid 500 mg oral tablet (3 sources) Vitamin C Start: 07-18-2009 ascorbic acid(VITAMIN C 500 MG TAB) Take one(1) tablet daily. 0 07/18/2009 Active Comment on above: Take one(1) tablet d aily. B COMPLEX VITAMINS CAP (3 sources) Start: 07-18-2009 B COMPLEX VITAMINS CAP Take one(1) tablet daily. 0 07/18/2009 Active Comment on above: Take one(1) tablet d aily. CALCIUM CARB/VIT D2/MINERALS (CALTRATE PLUS ORAL) (3 sources) CALCIUM CARB/VIT D2/MINERALS (CALTRATE PLUS ORAL) Take by mouth. 0 Active Comment on above: Take by mouth. Calcium Carbonate / vitamin D3 (3 sources) CALCIUM CARBONATE/VITAMIN D3 (VITAMIN D-3 ORAL) Take 1,000 Units by mouth. 0 Active Comment on above: Take 1,000 Units by mouth. 12 hr guaiFENesin 600 mg extended release oral tablet (2 sources) Start: 01-02-2020 End: 02-12-2022 take 600 mg by mouth twice daily Guaifenesin Discontinued 600 MG PO TWICE A DAY January 02, 2020 12:00am February 12, 2022 2:53pm levoFLOXacin 750 mg oral tablet (2 sources) Quinolone Antimicrobial Start: 01-02-2020 End: 02-12-2022 take 750 mg by mouth once daily Levofloxacin Discontinued 750 MG PO DAILY January 02, 2020 12:00am February 12, 2022 2:53pm multivitamins(DAILY MULTI-VITAMIN TAB) (3 sources) Start: 07-18-2009 multivitamins(ETTA Y MULTI-VITAMIN TAB) Take one(1) tablet daily. 0 07/18/2009 Active Comment on above: Take one(1) tablet d aily. Problems Active Problems Problem Classification Problem Date Documented Date Episodic/Chronic Acquired foot deformities (1 source) Talipes planus; Translations: [Flat foot [pes planus] (acquired), right foot] Episodic Nonmalignant breast conditions (1 source) Fibrocystic change of right breast; Translations: [Diffuse cystic mastopathy of right breast] Chronic Nonmalignant breast conditions (1 source) Mammographic calcification of right breast; Translations: [Mammographic calcification found on diagnostic imaging of breast] Episodic Osteoarthritis (3 sources) Arthritis; Translations: [Unspecified osteoarthritis, unspecified site] 12-31-2019 Chronic Other connective tissue disease (1 source) Dysfunction of posterior tibial tendon of left foot; Translations: [Posterior tibial tendinitis, left leg] Episodic Other connective tissue disease (1 source) Pain in left leg; Translations: [Pain in left leg] Onset: 09-21-2024 Episodic Other injuries and conditions due to external causes (1 source) Injury of peroneal nerve at lower leg level, left leg, initial encounter; Translations: [Injury of peroneal nerve at lower leg level, left leg, initial encounter] Onset: 09-21-2024 Episodic Other lower respiratory disease (2 sources) Hypoxemia; Translations: [Hypoxemia] 01-01-2020 Episodic Other non-traumatic joint disorders (1 source) Pain in right ankle and joints of right foot; Translations: [Pain in joint, ankle and foot] 02-12-2022 Episodic Other nutritional; endocrine; and metabolic disorders (1 source) Body mass index (BMI) 39.0-39.9, adult; Translations: [Body Mass Index 39.0-39.9, adult] 02-12-2022 Chronic Other screening for suspected conditions (not mental disorders or infectious disease) (2 sources) Encounter for screening mammogram for malignant neoplasm of breast; Translations: [Encounter for screening mammogram for malignant neoplasm of breast] Onset: 11-16-2023 Episodic Pneumonia (except that caused by tuberculosis or sexually transmitted disease) (2 sources) Pneumonia; Translations: [Pneumonia, unspecified organism] 01-01-2020 Episodic Past or Other Problems Problem Classification Problem Date Documented Da te Episodic/Chronic Other connective tissue disease (3 sources) Calcaneal spur; Translations: [Calcaneal spur, unspecified foot] Onset: 07-18-2009 07-18-2009 Episodic Results Test Name Value Interpretation Reference Range Facility Orthopedic Visit Reporton Orthopedic Visit Report [facility] [address] [place] [address] OFFICE VISIT Date of Service: 07/18/24 MR#: [id number] Acct: [id number] Name: RICHI TELLO (MOISES) R Rep #: [id number] : 1955 Provider: Dr. Anam fleming DO Age/Sex: 69/F Location: [facility] [place] Status: Signed Intake Vital Signs 02/12/22 13:52 Height 5 ft 2 in Intake Visit Reasons: BILATERAL KNEES Allergies No Known Allergies Allergy (Verified 07/18/24 15:39) Medications ???Medication ???Instructions ???Recorded ???Confirmed ???Type calcium 300 mg-D3 20 mcg-magnesium 1 tab PO DAILY 02/12/22 07/18/24 History 25 mg-coppr 0.5 nu-necp-dkoa tablet (Caltrate-D3 Plus Minerals) cyanocobalamin (vitamin B-12) 1,000 mcg sublingual DAILY 2 07/18/24 History 1,000 mcg sublingual tablet hydrochlorothiazide 12.5 mg tablet 12.5 mg PO DAILY 02/12/22 History meloxicam 15 mg tablet 15 mg PO DAILY 02/12/22 07/18/24 H istory cpstyvpm-zua-hbhgp acid 0.4 1 tab PO DAILY 02/12/22 07/18/24 H istory mg-lycopene 300 mcg-lutein 250 mcg tablet (Centrum Silver) cholecalciferol (vitamin D3) 125 125 mcg PO QDAY 07/18/24 07/18/24 History mcg (5,000 unit) capsule Have you fallen in the past year?: No PFSH Social History Smoking Status: Never smoker HPI BILATERAL KNEES Details: This documentation accurately reflects the service provided and the decisions made by me, Dr. Anam Jensen, DO 07/18/24 1530. Part of today???s visit was documented by Irene RODRIGUEZ, acting as scribe. RICHI TELLO (RENEE) is a 69 year old F here today for bilateral knee issues. She saw Beronica Rocha in 2021 and had gotten bilateral medial bureau chief web reaction brace for both knees and the velcro has now worn out and would like new ones. She states that her right knee is worse than the left. She denies having pain. she has more stiffness and instability and lack of confidence in the knees. She did PT for 5 months and now she goes everyday and works on strengthening her knees. She would like re-evaluated to see if she is still a candidate for the braces. She states that she wears her braces to work which helps her stability and makes it to where she can stand for longer periods of time. Ortho Exam General General: Yes no acute distress (Obesity) Neurologic: Yes alert and Yes oriented x3 Psychologic: Yes reasonable and appropriate Right Knee Skin/Wound: No erythema, No ecchymosis and Yes swelling Homans Sign: No Knee ROM: Yes ROM-Extension -20 to 0 (-25) and Yes ROM-Flexion 0-140 (90) Stability: NML: Anterior Drawer, NML: Posterior Drawer, NML: Varus 0 and NML: Varus 30 and 1+: Valgus 0 (2 mm medial gapping secondary to joint space narrowing) and 1+: Valgus 30 Patella Translation: 1 Patella Grind: Yes KNEE: 2mm medial gapping valgus stress severe crepitation Left Knee Knee ROM: Yes ROM-Extension -20 to 0 and Yes ROM-Flexion 0-140 (98) Stability: NML: Anterior Drawer, NML: Posterior Drawer, NML: Varus 0 and NML: Varus 30 and 1+: Valgus 0 (2 mm medial gapping secondary to joint space narrowing) and 1+: Valgus 30 Patella Translation: 1 Patella Grind: Yes KNEE: 2mm medial gapping valgus stress severe crepitation Supplemental Info 02/12/2022 x-ray left knee: Advanced knee arthrosis [id number]-[id number] medial compartment with varus deformity, severe patellofemoral arthrosis 02/12/2022 x-ray right knee: Advanced knee arthrosis [id number]-[id number] medial compartment with varus deformity, severe patellofemoral arthrosis Coding Level of Care Code Off vis,est,level 3 Diagnoses Primary osteoarthritis of right knee M17.11 Osteoarthritis type: primary Primary osteoarthritis of left knee M17.12 Osteoarthritis type: primary Obesity E66.9 Assessment and Plan Assessment and Plan (1) Right knee DJD: Status: Acute Qualifiers: Osteoarthritis type: primary Qualified Code(s): M17.11 - Unilateral primary osteoarthritis, right knee (2) Left knee DJD: Status: Acute Qualifiers: Osteoarthritis type: primary Qualified Code(s): M17.12 - Unilateral primary osteoarthritis, left knee (3) Obesity: Status: Acute Plan Patient has advanced bilateral knee arthritis she has done very well with web reaction medial bureau chief braces for the last 3 years that were given to her by Beronica smart. She is requesting new braces. She does not have any significant pain but feels the brace is give her stability and confidence in her knees. We reviewed options again for DJD knee including if there was pain intra-articular steroid and viscosupplementation injections, NSAIDs, physical therapy, weight loss, total joint arthroplasty Patient would like to new knee braces to be the extent of her treatment today. (more content not included)... Normal [facility] SCRN MAMM (CAD)W/ODALYS BILATo n 10-22-2023 SCRN MAMM (CAD)W/ODALYS BILAT [facility] Imaging Services [address] [place] [address] SCRN MAMM (CAD)W/ODALYS BILAT MR#: [id number] Acct: [id number] Name: RICHI TELLO Rep #: [id number] : 1955 F 68 From: Roderick moncada MD PCP: Dr. Margaret Moore DO Status: [facility] Study: SCRN MAMM (CAD)W/ODALYS BILAT Date of Exam: 10/04 11/27 Exam# [id number] Ordering [place]: [place] [id number] MAMMOGRAPHY - BILATERAL SCREENING REASON FOR EXAM: Female, 68 years old. Routine annual screening examination. PERTINENT HISTORY: Mother with breast cancer. Prior right stereotactic breast biopsy. TECHNIQUE: Digital bilateral breast odalys (3D mammographic acquisition) in the CC and MLO projections. 2-D mediolateral oblique (MLO) and craniocaudad (CC) views of both breasts were obtained. CAD: Full Field Digital Mammography with Computer Added Detection was performed. COMPARISON: Comparison is made with prior study dated October 20, 2022 and June 28, 2021. FINDINGS: Breast Composition: The breasts are heterogeneously dense, which may obscure small masses. There are no dominant masses or suspicious calcifications. No other significant abnormalities are identified. There has been no significant change since the prior study. BI/SCRN MAMM (CAD)W/ODALYS BILAT IMPRESSION: Stable bilateral screening mammogram. Yearly follow-up mammogram recommended. (A) ASSESSMENT CATEGORY: BIRADS Category 1: Negative. A letter regarding these results will be sent to the patient by the facility within 30 days. Approximately 10% of breast cancers are not detected by mammography. A normal mammogram should not delay biopsy of a clinically suspicious abnormality. [id number] Electronically Signed: Roderick Lyons MD at 15:24 EDT , CC: Dr. Margaret Moore, DO [place] Worker: Signed Normal [facility] Absolute lymphocyte countOrd ered By: Margaret Moore on 08-19-2022 Lymphocytes Auto (Unsp spec) [#/Vol] 1.03 10*3/uL 0.83-4.51 [facility] Basophil percentageOrdered B y: Margaret Moore on 08-19-2022 Basophils/100 WBC (Bld) 0.5 % 0-1 [facility] Bilirubin [Mass/Vol] 0.60 mg/dL 0.20-1.00 [facility] Comment on above: For patients on eltr ombopag therapy, use of Dimension Allison TBIL is not recommended. Chloride [Moles/Vol] 106 mmol/L 98-107 [facility] Cholesterol [Mass/Vol] 193 mg/dL <200 [facility] Comment on above: <200 mg/dL Desirable 200-240 mg/dL Borderline >240 mg/dL High Risk Eosinophils/100 WBC (Bld) 3.4 % 0-5 [facility] Glucose [Mass/Vol] 90 mg/dL 74-106 [facility] Neutrophils (Bld) [#/Vol] 2.4 10*3/uL 2.0-7.7 [facility] Neutrophils/100 WBC (Bld) 59.6 % 47-70 [facility] Potassium [Moles/Vol] 4.1 mmol/L 3.5-5.1 [facility] Protein [Mass/Vol] 7.5 g/dL 6.4-8.2 [facility] Sodium [Moles/Vol] 142 mmol/L 136-145 [facility] Triglyceride [Mass/Vol] 125 mg/dL <199 [facility] Comment on above: The drugs N-Acetylcy steine and Metamizole may falsely depress this assay.Serum Triglycerides Reference Interval Normal <150 mg/dL Borderline high 150 - 199 mg/dL High 200 - 499 mg/dL Very High > or = 500 mg/dL WBC (Bld) [#/Vol] 4.1 10*3/uL 4.4-11.0 [facility] Blood erythrocytes count (nu mber/volume)Ordered By: Margaret Moore on 08-19-2022 RBC (Bld) [#/Vol] 4.45 10*6/uL 4.2-5.4 [facility] Blood hemoglobin measurement (mass/volume)Ordered By: Margaret Moore on 08-19-2022 Hemoglobin (Bld) [Mass/Vol] 13.6 g/dL 12.0-15.0 [facility] Blood lymphocytes/100 leukoc ytesOrdered By: Margaret Moore on 08-19-2022 Lymphocytes/100 WBC (Bld) 25.2 % 19-41 [facility] Blood monocytes/100 leukocyt esOrdered By: Margaret Moore on 08-19-2022 Monocytes/100 WBC (Bld) 10.8 % 0-10 [facility] Blood platelet mean volumeOr dered By: Margaret Moore on 08-19-2022 Platelet mean volume (Bld) [Entitic vol] 8.7 fL 6.2-12.0 [facility] Determination of erythrocyte mean corpuscular volume (MCV)Ordered By: Margaret Moore on 08-19-2022 MCV (RBC) [Entitic vol] 93.9 fL 81-99 [facility] Hematocrit Auto (Bld) [Volum e fraction]Ordered By: Margaret Moore on 08-19-2022 Hematocrit (Bld) [Volume fraction] 41.8 % 37-47 [facility] Laboratory - Chemistry and C hemistry - challengeOrdered By: Margaret Moore on 08-19-2022 ALP [Catalytic activity/Vol] 69 U/L 45-117 [facility] ALT [Catalytic activity/Vol] 27 U/L 13-56 [facility] CO2 [Moles/Vol] 28.0 mmol/L 21.0-32.0 [facility] Globulin (S) [Mass/Vol] 3.8 g/dL 2.2-4.2 [facility] Urea nitrogen/Creatinine [Mass ratio] 22.7 mg/mg 10-20 [facility] - Hematology and Cell countsOrdered By: Margaret Moore on 08-19-2022 Erythrocyte distribution width (RBC) [Entitic vol] 44.3 fL 35.1-43.9 [facility] Erythrocyte distribution width (RBC) [Ratio] 12.9 % 11.6-14.6 [facility] Immature granulocytes/100 WBC (Bld) 0.500 % 0.0-0.9 [facility] Comment on above: IG% - Immature Granu locytes (promyelocytes, myelocytes and metamyelocytes) > 1% indicates that a LEFT SHIFT is Present. MCH (RBC) [Entitic mass] 30.6 pg 27.0-32.0 [facility] Nucleated RBC/100 WBC (Bld) [Ratio] 0 % 0-5 [facility] MCHC Auto (RBC) [Mass/Vol]Or dered By: Margaret Moore on 08-19-2022 MCHC (RBC) [Mass/Vol] 32.5 g/dL 32-36 [facility] No Panel InformationOrdered By: Margaret Moore on 08-19-2022 Estimated GFR (MDRD) Amer 114 mL/min >60 [facility] Comment on above: GFR Calc Estimated GFR (MDRD) Non-Af Amer 94 mL/min >60 [facility] Comment on above: Non- GFR Calc Vitamin D 25-Hydroxy 52.6 ng/mL [facility] Comment on above: Vitamin D 25(OH) Sta tus Range Deficiency <20 ng/mL (50nmol/L) Insufficiency 20 - 30 ng/mL (50 - 75 nmol/L) Sufficiency 30 - 100 ng/mL (75 - 250 nmol/L) Toxicity >100 ng/mL (>250 nmol/L) Platelets bldOrdered By: Karlene Moore on 08-19-2022 Platelets (Bld) [#/Vol] 360 10*3/uL 150-450 [facility] Serum or plasma albumin austin urement (mass/volume)Ordered By: Margaret Moore on 08-19-2022 Albumin [Mass/Vol] 3.7 g/dL 3.2-5.0 [facility] Serum or plasma albumin/glob ulin mass ratioOrdered By: Margaret oMore on 08-19-2022 Albumin/Globulin [Mass ratio] 1.0 {ratio} 0.9-2.4 [facility] Serum or plasma calcium austin urement (mass/volume)Ordered By: Margaret Moore on 08-19-2022 Calcium [Mass/Vol] 9.4 mg/dL 8.5-10.1 [facility] Serum or plasma cholesterol in HDL measurement (mass/volume)Ordered By: Margaret Moore on 08-19-2022 Cholesterol in HDL [Mass/Vol] 58 mg/dL >40 [facility] Comment on above: The drugs N-Acetylcy steine and Metamizole may falsely depress this assay. Reference Range HDL <40 mg/dL Low HDL Cholesterol HDL >or= 60 mg/dL High HDL Cholesterol Serum or plasma cholesterol in VLDL measurement (mass/volume)Ordered By: Margaret Moore on 08-19-2022 Cholesterol in VLDL [Mass/Vol] 25 mg/dL 5-40 [facility] Serum or plasma creatinine m easurement (mass/volume)Ordered By: Margaret Moore on 08-19-2022 Creatinine [Mass/Vol] 0.66 mg/dL 0.55-1.02 [facility] Comment on above: The validity of the calculated GFR & GFRAA in patients over 70 years has not been determined. Clinical correlation is essential. Serum or plasma low density lipoprotein (LDL) cholesterol measurement (mass/volume)Ordered By: Margaret Moore on 08-19-2022 Cholesterol in LDL [Mass/Vol] 110 mg/dL 0-130 [facility] Serum or plasma urea nitroge n measurement (mass/volume)Ordered By: Margaret Moore on 08-19-2022 Urea nitrogen [Mass/Vol] 15 mg/dL 7-18 [facility] Thin prep Papanicolaou smear with manual screeningOrdered By: Margaret Moore on 08-19-2022 Thin prep Papanicolaou smear with manual screening 16 U/L 15-37 [facility] Thin prep Papanicolaou smear with manual screening 8 5-15 [facility] CNOVon 08-22-2021 CNOV Office Visit (PODIWS ) RICHI TELLO ([id number]) 1955 F Date Time Provider Department 08/22/21 3:00 PM JO ANN LIND During your visit today, we recorded the following information about you: [facility] 08/23/2021 7:14 AM Signed Patient presents with: Left Foot - New, abnormal gait Right Foot - New, abnormal gait New orthotic order Jo Ann Lind DPM 09/26/2021 8:06 AM Addendum Chief Complaint: This 66 year old female who presents with chief complaint:left arch pain HPI Patient presents to clinic for evaluation of left foot. Patient has been experiencing left arch pain second to flatfoot. She presented to [facility] and she had her afo modified. Patient states that once her afo was modified, her pain resolved. Patient states that because of her flatfoot, she is slow walking. She feels that her alignment is altered and her alignment is affecting her knees. PAIN EVALUATION No data found in the last 1 encounters. No results found for: HBA1C PCP: No primary care provider on file. PAST MEDICAL HISTORY Diagnosis Date - Achilles tendon rupture Left foot Current Outpatient Medications Medication Sig - hydroCHLOROthiazide (HYDRODIURIL, ESIDRIX) 12.5 mg tablet Take 12.5 mg by mouth once daily. - meloxicam (MOBIC) 15 mg tablet Take 15 mg by mouth once daily. - CALCIUM CARBONATE/VITAMIN D3 (VITAMIN D-3 ORAL) Take 1,000 Units by mouth. - CALCIUM CARB/VIT D2/MINERALS (CALTRATE PLUS ORAL) Take by mouth. - ascorbic acid(VITAMIN C 500 MG TAB) Take one(1) tablet daily. - B COMPLEX VITAMINS CAP Take one(1) tablet daily. - multivitamins(DAILY MULTI-VITAMIN TAB) Take one(1) tablet daily. No current facility-administered medications for this visit. ALLERGIES No Known Allergies PAST SURGICAL HISTORY Procedure Laterality Date - COLONOSCOPY SCREENING 2017 - PAST SURGICAL HISTORY OF 01/05/1988 ulnar artery ligated in left arm FAMILY HISTORY Problem Relation Age of Onset - Breast Cancer Mother - Cancer Father Lung cancer Social History Tobacco Use - Smoking status: Never Smoker - Smokeless tobacco: Never Used Vaping Use - Vaping Use: Never used Substance Use Topics - Alcohol use: Yes - Drug use: No REVIEW OF SYSTEMS GENERAL: Negative for Malaise, significant weight loss, fever RESPIRATORY: Negative for cough, wheezing and shortness of breath CARDIOVASCULAR: Negative for chest pain, leg swelling and palpitations GI: Negative for abdominal discomfort, blood in stools or black stools and change in bowel habits : Negative for dysuria, frequency and incontinence MUSCULOSKELETAL: Negative for joint pain or swelling, back pain, and muscle pain. SKIN: Negative for lesions, rash, and itching. HEMATOLOGY/LYMPHOLOGY Negative for prolonged bleeding, bruising easily, and swollen nodes. ENDOCRINE: Negative for cold or heat intolerance, polyuria, polydipsia and goiter. NEURO: negative Physical Exam: Constitutional: Pt is a well developed 66 year old female who is alert, oriented and cooperative Eyes: Following during examination. No redness or drainage. Respiratory: RR normal and nonlabored. Even breathing. No evidence of distress or shortness of breath. Psychology: Patient is engaged during conversation. Normal affect and mood. Does not appear depressed or anxious during encounter. Vascular: Dorsalis pedis and posterior tibial pulses palpable as b/l Capillary Fill time < 5 seconds to digits 1-5 b/l Skin temperature warm to warm proximal to distal b/l Hair growth present to digits Neurological: intact light touch/epicritic sensation b/l intact protective sensation no significant neurological deficits Dermatological: Nails 1-5 b/l appear normal. Webspaces clean and dry 1-4 b/l. Skin appears well hydrated and supple. good color, texture, turgor. No open lesions present. No callosities present. Musculoskeletal/Orthopa edic: Patient has no pain to palpation of b/l feet Foot type is pronated structurally L>R AJ ROM is full with knee extended and flexed 1st MPJ is full when loaded and no pain or crepitus are noted with ROM. MTJ, STJ are full and free of pain and crepitus. +5/5 muscle strength dorsiflexion, plantarflexion, inversion, eversion b/l Radiographs: n/a ASSESSMENT: (M76.822) Posterior tibial tendon dysfunction, left (primary encounter diagnosis) (M21.41, M21.42) Pes planus of both feet PLAN: Discussed flatfoot leading to plantar arch pain. Recommend she continue with afo left and custom inserts right. Patient's anatomy L>R is not amenable with over the counter inserts and requires custom device. Surgical options discussed for flatfoot. Patient not interested in surgery. Recommend stretching of b/l arch for arch pain. F/u prn Jo Ann Lind DPM Podiatry [address] [facility] [address] Dept: [phone] (more content not included)... Normal [facility] CNOVon 07-23-2021 CNOV Office Visit (CHACORTA ) RICHI TELLO ([id number]) 1955 F Date Time Provider Department 07/23/21 10:20 AM SAYDA REED During your visit today, we recorded the following information about you: Temperature Pulse Blood pressure Weight 97.3 degrees 87/minute 126/72 98.4 kg Height 1.575 m Sayda Reed MD 07/23/2021 11:53 AM Signed Richi Tello 1955 REFERRING PHYSICIAN: Self CHIEF COMPLAINT: Follow Up (R breast stereotactic biopsy) HPI: Richi is s/p right stereotactic breast biopsy at [facility] done for abnormal calcifications seen on right breast mammograms. This was done on 07/16/2021. Pathology from [facility] - hyalinized fibroadenoma with clustered microcalcifications. Focal ductal hyperplasia without atypia. Mild fibrocystic change. No evidence of malignancy. Patient notes only soreness in the area. Notes some bruising. PAST MEDICAL HISTORY Diagnosis Date - Achilles tendon rupture Left foot PAST SURGICAL HISTORY Procedure Laterality Date - COLONOSCOPY SCREENING 2017 - PAST SURGICAL HISTORY OF 01/05/1988 ulnar artery ligated in left arm Current Outpatient Medications Medication Sig - hydroCHLOROthiazide (HYDRODIURIL, ESIDRIX) 12.5 mg tablet Take 12.5 mg by mouth once daily. - meloxicam (MOBIC) 15 mg tablet Take 15 mg by mouth once daily. - CALCIUM CARBONATE/VITAMIN D3 (VITAMIN D-3 ORAL) Take 1,000 Units by mouth. - CALCIUM CARB/VIT D2/MINERALS (CALTRATE PLUS ORAL) Take by mouth. - ascorbic acid(VITAMIN C 500 MG TAB) Take one(1) tablet daily. - B COMPLEX VITAMINS CAP Take one(1) tablet daily. - multivitamins(DAILY MULTI-VITAMIN TAB) Take one(1) tablet daily. ALLERGIES: Patient has no known allergies. REVIEW OF SYSTEMS; Denies fevers PHYSICAL EXAMINATION: General: The patient is 66 year old female, well nourished, well hydrated in no acute distress. The patient is oriented to time, place, and person. VITALS: Blood pressure 126/72, pulse 87, temperature 36.3 ?C (97.3 ?F), height 157.5 cm (5' 2), weight 98.4 kg (217 lb), SpO2 98 %. Body mass index is 39.69 kg/m?. Head: Normal cephalic, atraumatic Eyes: pupils are equally round, sclera are clear/anicteric Neck is supple with no tracheal deviation Breast: slight ecchymoses at site - no hematoma noted, incision is clean/dry/intact - suture removed and steristrips placed Respiratory: Normal respiratory excursion and pattern. Abdominal exam: benign Extremities: no clubbing, cyanosis or edema. Neuro: non focal Psych: normal mood Assessment IMPRESSION: fibrocystic changes - right breast PLAN: Patient to return to routine breast cancer screening with mammograms. She can return to her PCP for this. Follow up with me if any worsening signs/symptoms. Patient acknowledges above. Diagnoses: (N60.11) Fibrocystic breast changes, right (primary encounter diagnosis) Return to Clinic: The patient is instructed to follow-up with me as above. Medical Decision Making: Problems: Low: Stable chronic illness Medical Decision Making Level: 2 - Straightforward Sayda Reed MD Referring Provider: SELF [200] Allergies As of Date: 07/23/2021 (No Known Allergies) Date Reviewed: 07/23/2021 Reviewed by: Daniela Hutchins LPN - Fully Assessed Reason for Visit: Follow Up [171] Cmt: R breast stereotactic biopsy Primary Visit Diagnosis:Fibrocystic breast changes, right [N60.11] Prescriptions as of 07/23/2021 - hydroCHLOROthiazide (HYDRODIURIL, ESIDRIX) 12.5 mg tablet Take 12.5 mg by mouth once daily. - meloxicam (MOBIC) 15 mg tablet Take 15 mg by mouth once daily. - CALCIUM CARBONATE/VITAMIN D3 (VITAMIN D-3 ORAL) Take 1,000 Units by mouth. - CALCIUM CARB/VIT D2/MINERALS (CALTRATE PLUS ORAL) Take by mouth. - ascorbic acid(VITAMIN C 500 MG TAB) Take one(1) tablet daily. - B COMPLEX VITAMINS CAP Take one(1) tablet daily. - multivitamins(DAILY MULTI-VITAMIN TAB) Take one(1) tablet daily. Problem List As Of Date 07/23/2021 Noted Resolved [place]cane[place] Spur [M77.30] 07/18/2009 Disposition: Return if symptoms worsen or fail to improve. Follow-up and Disposition History for Encounter Date Provider Department Center 07/23/2021 [id number] REED [facility] Encounter Status:Closed by SAYDA REED on 07/23/21 [facility] CNDa 07-08-2021 BETH Office Visit (CHACORTA ) RICHI TELLO ([id number]) 1955 F Date Time Provider Department 07/08/21 2:20 PM SAYDA REED During your visit today, we recorded the following information about you: Temperature Pulse Blood pressure Weight 98.4 degrees 92/minute 144/84 99.6 kg Height 1.6 m Bailee Antonio RN 07/08/2021 2:30 PM Signed REVIEW OF SYSTEMS: General: The patient NOTES fatigue, denies weight loss, denies weight gain, denies feeling hot, and denies feelings of cold. Eyes: The patient denies glaucoma, denies eye injury/surgery, wears glasses or contacts. Ear/Nose/Throat: The patient denies allergies, denies hayfever, denies ear infections, and denies bloody noses. Cardiovascular: The patient denies chest pain, denies heart disease, denies high blood pressure,denies cardiac stent, denies prior heart attack, denies irregular heart beat, denies high cholesterol, denies poor circulation, denies heart failure, other cardiac issues, denies claudication, denies cold feet, denies peripheral arterial stent. Respiratory: The patient denies tuberculosis, denies pneumonia, denies frequent cough, denies pulmonary embolism, denies shortness of breath, and denies coughing up blood. Gastrointestinal: The patient denies difficulty swallowing, denies acid reflux, denies ulcers, denies vomiting, denies jaundice/hepatitis, denies gallbladder problems, denies black or tarry stools, denies hemorrhoids, denies bleeding from rectum, denies diverticulitis, denies constipation, denies diarrhea, denies loss of stool control, and NOTES hernias. Kidney/Bladder: The patient denies kidney stones, denies urine infections, and denies bloody urine. Skin: The patient denies a history of skin cancer, denies bleeding/changing moles, and denies a history of skin rash. Neurologic: The patient denies a history of epilepsy/convulsions, denies headaches, denies head/spinal injuries, and denies stroke/TIA. Psychiatric: The patient denies psychiatric medications, denies depression, and denies voices, denies substance abuse. Endocrine: The patient denies thyroid disorders, denies diabetes, and denies hormonal problems. Hematologic: The patient denies a history of bruising, denies bleeding, and denies anemia, denies blood clots. Infections: The patient denies a history of measles and mumps, denies rheumatic fever, and denies sexually transmitted diseases. Musculoskeletal: The patient denies back pain/injury, denies back problems, denies sciatica, denies knee/foot trouble, denies arthritis, or denies gout. When was patient's last Mammogram screening? 2021 Last Colonoscopy: 2017 ZOFIA Antoine MD 07/15/2021 1:57 PM Addendum Richi Wong 1955 REFERRING PHYSICIAN: Self CHIEF COMPLAINT: Consult (abnormal mammogram) HPI: The patient is a 66 year old female presents with abnormal right breast mammograms. She denies palpable breast masses. She denies nipple discharge. She denies any breast pain. She denies previous breast biopsies. Her mother was diagnosed with breast cancer at an early age and passed due to cancer. Mammograms done at [facility] on 06/28/2021 - cluster of amorphous calcifications are seen in the deep inferior medial aspect of the right breast. Biopsy is recommended. BIRADS 4 PAST MEDICAL HISTORY Diagnosis Date - Achilles tendon rupture Left foot PAST SURGICAL HISTORY Procedure Laterality Date - COLONOSCOPY SCREENING 2017 - PAST SURGICAL HISTORY OF 01/05/1988 ulnar artery ligated in left arm Current Outpatient Medications Medication Sig - hydroCHLOROthiazide (HYDRODIURIL, ESIDRIX) 12.5 mg tablet Take 12.5 mg by mouth once daily. - meloxicam (MOBIC) 15 mg tablet Take 15 mg by mouth once daily. - CALCIUM CARBONATE/VITAMIN D3 (VITAMIN D-3 ORAL) Take 1,000 Units by mouth. - CALCIUM CARB/VIT D2/MINERALS (CALTRATE PLUS ORAL) Take by mouth. - B COMPLEX VITAMINS CAP Take one(1) tablet daily. - multivitamins(DAILY MULTI-VITAMIN TAB) Take one(1) tablet daily. - ascorbic acid(VITAMIN C 500 MG TAB) Take one(1) tablet daily. ALLERGIES: Patient has no known allergies. PERSONAL HISTORY: Social History Tobacco Use - Smoking status: Never Smoker - Smokeless tobacco: Never Used Vaping Use - Vaping Use: Never used Substance Use Topics - Alcohol use: Yes - Drug use: No FAMILY HISTORY Problem Relation Age of Onset - Breast Cancer Mother - Cancer Father Lung cancer The review of systems data was entered by the nurse and reviewed by ca Nursing Notes: Bailee Antonio RN 07/08/2021 2:30 PM Signed REVIEW OF SYSTEMS: General: The patient NOTES fatigue, denies weight loss, denies weight gain, denies feeling hot, and denies feelings of cold. Eyes: The patient denies glaucoma, denies eye injury/surgery, wears glasses o (more content not included)... Normal [facility] CNPNon 07-08-2021 CNPN Telephone ([employer]) RICHI TELLO ([id number]) 1955 F Date Time Provider Department 07/08/21 SAYDA REED During your visit today, we recorded the following information about you: Artur Ami 07/08/2021 2:47 PM Signed 07-16-2021 R [facility] Allergies As of Date: 07/08/2021 (No Known Allergies) Date Reviewed: 07/08/2021 Reviewed by: Bailee Antonio RN - Fully Assessed Reason for Visit: 07-16-2021 R [facility] [Other] Prescriptions as of 07/18/2021 - hydroCHLOROthiazide (HYDRODIURIL, ESIDRIX) 12.5 mg tablet Take 12.5 mg by mouth once daily. - meloxicam (MOBIC) 15 mg tablet Take 15 mg by mouth once daily. - CALCIUM CARBONATE/VITAMIN D3 (VITAMIN D-3 ORAL) Take 1,000 Units by mouth. - CALCIUM CARB/VIT D2/MINERALS (CALTRATE PLUS ORAL) Take by mouth. - ascorbic acid(VITAMIN C 500 MG TAB) Take one(1) tablet daily. - B COMPLEX VITAMINS CAP Take one(1) tablet daily. - multivitamins(DAILY MULTI-VITAMIN TAB) Take one(1) tablet daily. Problem List As Of Date 07/08/2021 Noted Resolved [place]caneal Spur [M77.30] 07/18/2009 Encounter Status:Closed by ARTUR GREEN on 07/18/21 Normal [facility] Vital Signs Date Time Vital Sign Value Performing Clinician Jasmine mercado 02-12-2022 13:52-0500 Body height 157.[address] Magraret Moore Work Phone: [facility] 02-12-2022 13:52-0500 Body mass index (BMI) [Ratio] 39.9 kg/m2 Dr. Margaret Moore Work Phone: [facility] 02-12-2022 13:52-0500 Body weight 98.[address] Margaret Moore Work Phone: [facility] 07-23-2021 10:12-0400 Body height 157.5 cm Sayda Reed MD Work Phone: [facility] 07-23-2021 10:12-0400 Body temperature 97.3 [degF] Sayda Reed MD Work Phone: [facility] 07-23-2021 10:12-0400 Body weight 98.43 kg Sayda Reed MD Work Phone: [facility] 07-23-2021 10:12-0400 Diastolic blood pressure 72 mm[Hg] Sayda Reed MD Work Phone: [facility] 07-23-2021 10:12-0400 Heart rate 87 /min Sayda Reed MD Work Phone: [facility] 07-23-2021 10:12-0400 SaO2% (BldA) [Mass fraction] 98 % Sayda Reed MD Work Phone: [facility] 07-23-2021 10:12-0400 Systolic blood pressure 126 mm[Hg] Sayda Reed MD Work Phone: [facility] 07-08-2021 14:210400 Body height 160 cm Sayda Reed MD Work Phone: [facility] 07-08-2021 14:21-0400 Body temperature 98.4 [degF] Sayda Reed MD Work Phone: [facility] 07-08-2021 14:21-0400 Body weight 99.61 kg Sayda Reed MD Work Phone: [facility] 07-08-2021 14:21-0400 Diastolic blood pressure 84 mm[Hg] Sayda Reed MD Work Phone: [facility] 07-08-2021 14:21-0400 Heart rate 92 /min Sayda Reed MD Work Phone: [facility] 07-08-2021 14:21-0400 SaO2% (BldA) [Mass fraction] 98 % Sayda Reed MD Work Phone: [facility] 07-08-2021 14:21-0400 Systolic blood pressure 144 mm[Hg] Sayda Reed MD Work Phone: [facility] Encounters Encounter Date Encounter Type Care Provider Facility Start: 10-24-2024 ambulatory Margaret Moore Facility:[facility] Start: 09-27-2024 ambulatory Margaret Moore Facility:[facility] Start: 07-18-2024 End: 07-18-2024 ambulatory Margaret Moore Facility:[facility] Start: 10-22-2023 End: 10-22-2023 ambulatory Margaret Moore Facility:[facility] Start: 10-20-2022 End: 10-20-2022 ambulatory [facility] Work Phone: Start: 10-20-2022 End: 10-20-2022 Patient encounter procedure [facility] Work Phone: Start: 08-19-2022 End: 08-19-2022 Patient encounter procedure [facility]don[facility] Start: 06-05-2022 End: 06-05-[address] Margaret Moore Work Phone: [facility] Work Phone: Start: 06-05-2022 End: 06-05-[address] Margaret Moore Work Phone: [facility]-Physical Therapy Start: 02-12-2022 End: 02-12-[address] Margaret Moore Work Phone: [facility] Start: 08-22-2021 End: 08-22-2021 Patient encounter procedure Jo Ann Lind Work Phone: Podiatry Comment on above: Posterior tibial ten don dysfunction, left (Primary Dx); Pes planus of both feet Start: 07-23-2021 End: 07-23-2021 Patient encounter procedure Sayda Reed MD Work Phone: General Surgery Comment on above: Fibrocystic breast c hanges, right (Primary Dx) Start: 07-08-2021 End: 07-08-2021 Patient encounter procedure Sayda Reed MD Work Phone: General Surgery Comment on above: Calcification of rig ht breast on mammography (Primary Dx) Procedures Date Procedure Procedure Detail Performing Clinician Start: 10-20-2022 Screening mammography Start: 02-12-[address] Margo Moore Work Phone: Start: 02-12-2022 Radiologic examinati on of knee Dr. Margaret Moore Work Phone: Plan of Treatment Date Care Activity Detail Author Start: 02-14-2022 Patient referral [facility] Work Phone: Start: 12-05-2021 Influenza vaccination INFLUENZA (Season Ended) [facility] Start: 04-06-2021 ADVANCE DIRECTIVE DISCUSSION ADVANCE DIRECTIVE DISCUSSION [facility] Start: 2018 BONE DENSITY BONE DENSITY [facility] Start: 2018 PNEUMOVAX AGE 65 AND OVER WITH 5YR LOOKBACK (#1) PNEUMOVAX AGE 65 AND OVER WITH 5YR LOOKBACK (#1) [facility] Start: 2003 SHINGRIX VACCINE (1 of 2) SHINGRIX VACCINE (1 of 2) [facility] Start: 1998 COLOGUARD (FIT-DNA) COLOGUARD (FIT-DNA) [facility] Start: 1998 Colonoscopy COLONOSCOPY [facility] Start: 1998 COLORECTAL CANCER SCREENING COLORECTAL CANCER SCREENING [facility] Start: [address] COLONOGRAPHY [facility] Start: 1998 DIABETES SCREEN DIABETES SCREEN [facility] Start: 1998 FECAL OCCULT BLOOD FECAL OCCULT BLOOD [facility] Start: 1998 LIPID SCREEN LIPID SCREEN [facility] Start: 1998 SIGMOIDOSCOPY SIGMOIDOSCOPY [facility] Start: 1993 Mammography MAMMOGRAM [facility] Start: 1972 Urine microalbumin profile DTAP,TDAP,TD (1 - Tdap) [facility] Start: 1971 HEPATITIS C SCREENING HEPATITIS C SCREENING [facility] Start: 1965 Adult depression screening assessment DEPRESSION SCREENING [facility] Patient referral [facility] Work Phone: Immunizations Immunization Date Immunization Notes Care Provider [facility] 01-02-2020 influenza, seasonal, injectable Dr. Margaret Moore Work Phone: [facility] 03-18-2016 tetanus and diphther ia toxoids, adsorbed, preservative free, for adult use (2 Lf of tetanus toxoid and 2 Lf of diphtheria toxoid) Dr. Margaret Moore Work Phone: [facility] Payers Date Payer Category Payer Self-pay [id number] 2023 Medicare [id number] 2023 Unknown [id number] 2018 Medicare MEDICARE MEDICAR E A AND B [id number] 2018-Present [phone] [place] [address] Medicare [id number] 2018 Unknown ANTHEM ANTHEM ME DICARE SUPPLEMENT [id number] 2018-Present [phone] [address] [place] [address] Indemnity [id number] Unknown [facility] [id number] Unknown [id number] Unknown [id number] Unknown [id number] Unknown [id number] Social History Date Type Detail Facility Tobacco smoking status NHIS Never smoked tobacco [facility] Start: 07-08-2021 End: 07-23-2021 Alcohol intake Current drinker of alcohol (finding) [facility] Start: 1955 Sex Assigned At Not on file [facility] Start: 06-28-2021 End: 08-22-2021 Exposure to SARS-CoV-2 (event) Not sure [facility] Start: 02-12-2022 End: 02-12-2022 Tobacco smoking status ORIS Unknown if ever smoked [facility] Start: 01-01-2020 None [facility] Start: 12-31-2019 Spouse/ Signif icant Other [facility] Start: 1955 Sex Assigned At Female W [facility] Clinical Notes 07-08-2021 to 06-05-2022 Note Date & Type Note Facility 06-05-2022 Discharge summary Note Date/Time June 05, 2022 2:27 pm [facility] [address] [place] [address] / REHABILITATION SERVICES DISCHARGE SUMMARY MR#: [id number] Acct: [id number] Name: RICHI TELLO Rep #: [id number] : 1955 67 From: Lizette Roy Referring Dr.: KAMILLA Rocha Status: REG RCR Insurance: MEDICARE PART A B ANTHEM It has been my pleasure to treat RICHI TELLO referred by KAMILLA Crews, with the diagnosis of Bilateral Knee and Ankle Pain for a total of 24 visit(s). Discharge Date: Please see the following information for a summary of their discharge status. Subjective: Patient reports that she is doing so much better- she is able to roll over in bed and is working 4 hours shifts and is wearing braces and is muchmore confident. She is only wearing the braces just to work. Planning to continue with health and wellness and feels good about the exercises. % Improvement: 90 Objective/Function: Posture: FH, RS- can correct with verbal cues but does not maintain. Stairs: asc/desc 8 recip with 2 HR- decreased control with descent Gait: slightly antalgic- decreased stance on the left LE- pelvic translation- noAD. Sit to Stand: no UE A. HR/TR: able with UE A. ROM:WFL in all planes of theLE and lumbar spine. Strength: Core: fair minus, Hip: 4+/5 throughout, Knee:5/5, Ankle: 5/5 Goal 1:: Patient will be I with HEP and progression Goal 2:: Patient will report ability to stand for more than 4 hours at work without issues Goal 3:: Patient will maintain proper posture t/o tx session to demo increased core s/s Goal 4:: Patient will asc/desc 8 recip with 1 HR with good technique Goal 5:: Patient will report 80% improvement Plan: 06/05/22: Discharge to I HEP. 05/08/22: Continue 2x a week for 3 weeks- progression to HEP through gym membership. 03/27: Continue POC 2x a week for 4 weeks. Focus on LE and core strength/stabilization with functional mobility If there are questions or concerns regarding this patient's physical therapy, please feel free to call me at [phone]. Thank you for the referral of thispatient. Sincerely, Lizette Rob DPT Balance/Gait/Functional tests - Balance/Special Test Scores Lower Extremity Functional Score: 43 TUG Test Time Seconds: 16 Tug Test: <20 sec.=mostly independent <Electronically signed by Lizette Rob DPT> 06/05/22 0182 CC: KAMILLA Rocha; Dr. Margaret Moore, DO ~ ELR Signed [facility] Work Phone: [phone]) 984-140705-19-2022 NoteHNO ID: [id number] Author: Jo Ann Lind Service: ? Author Type: Physician Type: Progress Notes Filed: 09/26/2021 8:06 AM Note Text: Chief Complaint: This 66 year old female who presents with chief complaint:left arch pain HPI Patient presents to clinic for evaluation of left foot. Patient has been experiencing left arch pain second to flatfoot. She presented to [facility] and she had her afo modified. Patient states that once her afo was modified, her pain resolved. Patient states that because of her flatfoot, she is slow walking. She feels that her alignment is altered and her alignment is affecting her knees. PAIN EVALUATION No data found in the last 1 encounters. No results found for: HBA1C PCP: No primary care provider on file. PAST MEDICAL HISTORY Diagnosis Date - Achilles tendon rupture Left foot Current Outpatient Medications Medication Sig - hydroCHLOROthiazide (HYDRODIURIL, ESIDRIX) 12.5 mg tablet Take 12.5 mg by mouth once daily. - meloxicam (MOBIC) 15 mg tablet Take 15 mg by mouth once daily. - CALCIUM CARBONATE/VITAMIN D3 (VITAMIN D-3 ORAL) Take 1,000 Units by mouth. - CALCIUM CARB/VIT D2/MINERALS (CALTRATE PLUS ORAL) Take by mouth. - ascorbic acid(VITAMIN C 500 MG TAB) Take one(1) tablet daily. - B COMPLEX VITAMINS CAP Take one(1) tablet daily. - multivitamins(DAILY MULTI-VITAMIN TAB) Take one(1) tablet daily. No current facility-administered medications for this visit. ALLERGIES No Known Allergies PAST SURGICAL HISTORY Procedure Laterality Date - COLONOSCOPY SCREENING 2017 - PAST SURGICAL HISTORY OF 01/05/1988 ulnar artery ligated in left arm FAMILY HISTORY Problem Relation Age of Onset - Breast Cancer Mother - Cancer Father Lung cancer Social History Tobacco Use - Smoking status: Never Smoker - Smokeless tobacco: Never Used Vaping Use - Vaping Use: Never used Substance Use Topics - Alcohol use: Yes - Drug use: No REVIEW OF SYSTEMS GENERAL: Negative for Malaise, significant weight loss, fever RESPIRATORY: Negative for cough, wheezing and shortness of breath CARDIOVASCULAR: Negative for chest pain, leg swelling and palpitations GI: Negative for abdominal discomfort, blood in stools or black stools and change in bowel habits : Negative for dysuria, frequency and incontinence MUSCULOSKELETAL: Negative for joint pain or swelling, back pain, and muscle pain. SKIN: Negative for lesions, rash, and itching. HEMATOLOGY/LYMPHOLOGY Negative for prolonged bleeding, bruising easily, and swollen nodes. ENDOCRINE: Negative for cold or heat intolerance, polyuria, polydipsia and goiter. NEURO: negative Physical Exam: Constitutional: Pt is a well developed 66 year old female who is alert, oriented and cooperative Eyes: Following during examination. No redness or drainage. Respiratory: RR normal and nonlabored. Even breathing. No evidence of distress or shortness of breath. Psychology: Patient is engaged during conversation. Normal affect and mood. Does not appear depressed or anxious during encounter. Vascular: Dorsalis pedis and posterior tibial pulses palpable as b/l Capillary Fill time < 5 seconds to digits 1-5 b/l Skin temperature warm to warm proximal to distal b/l Hair growth present to digits Neurological: intact light touch/epicritic sensation b/l intact protective sensation no significant neurological deficits Dermatological: Nails 1-5 b/l appear normal. Webspaces clean and dry 1-4 b/l. Skin appears well hydrated and supple. good color, texture, turgor. No open lesions present. No callosities present. Musculoskeletal/Orthopaedic: Patient has no pain to palpation of b/l feet Foot type is pronated structurally L>R AJ ROM is full with knee extended and flexed 1st MPJ is full when loaded and no pain or crepitus are noted with ROM. MTJ, STJ are full and free of pain and crepitus. +5/5 muscle strength dorsiflexion, plantarflexion, inversion, eversion b/l Radiographs: n/a ASSESSMENT: (M76.822) Posterior tibial tendon dysfunction, left (primary encounter diagnosis) (M21.41, M21.42) Pes planus of both feet PLAN: Discussed flatfoot leading to plantar arch pain. Recommend she continue with afo left and custom inserts right. Patient's anatomy L>R is not amenable with over the counter inserts and requires custom device. Surgical options discussed for flatfoot. Patient not interested in surgery. Recommend stretching of b/l arch for arch pain. F/u prn Jo Ann Lind DPM Podiatry [address] [place] [address] Dept: [phone] [facility] NoteHNO ID: [id number] Author: Mercy Reyez Service: ? Author Type: ? Type: Progress Notes Filed: 08/23/2021 7:14 AM Note Text: Patient presents with: Left Foot - New, abnormal gait Right Foot - New, abnormal gait [facility] History of Present illness Narrative* Jo Ann Kaden - 08/22/2021 3:11 PM EDT Chief Complaint: This 66 year old female who presents with chief complaint:left arch pain HPI Patient presents to clinic for evaluation of left foot. Patient has been experiencing left arch pain second to flatfoot. She presented to [facility] and she had her afo modified. Patient states that once her afo was modified, her pain resolved. Patient states that because of her flatfoot, she is slow walking. She feels that her alignment is altered and her alignment is affecting her knees. PAIN EVALUATION No data found in the last 1 encounters. No results found for: HBA1C PCP: No primary care provider on file. PAST MEDICAL HISTORY Diagnosis Date Achilles tendon rupture Left foot Current Outpatient Medications Medication Sig hydroCHLOROthiazide (HYDRODIURIL, ESIDRIX) 12.5 mg tablet Take 12.5 mg by mouth once daily. meloxicam (MOBIC) 15 mg tablet Take 15 mg by mouth once daily. CALCIUM CARBONATE/VITAMIN D3 (VITAMIN D-3 ORAL) Take 1,000 Units by mouth. CALCIUM CARB/VIT D2/MINERALS (CALTRATE PLUS ORAL) Take by mouth. ascorbic acid(VITAMIN C 500 MG TAB) Take one(1) tablet daily. B COMPLEX VITAMINS CAP Take one(1) tablet daily. multivitamins(DAILY MULTI-VITAMIN TAB) Take one(1) tablet daily. No current facility-administered medications for this visit. ALLERGIES No Known Allergies PAST SURGICAL HISTORY Procedure Laterality Date COLONOSCOPY SCREENING 2018 PAST SURGICAL HISTORY OF 01/05/1988 ulnar artery ligated in left arm FAMILY HISTORY Problem Relation Age of Onset Breast Cancer Mother Cancer Father Lung cancer Social History Tobacco Use Smoking status: Never Smoker Smokeless tobacco: Never Used Vaping Use Vaping Use: Never used Substance Use Topics Alcohol use: Yes Drug use: No REVIEW OF SYSTEMS GENERAL: Negative for Malaise, significant weight loss, fever RESPIRATORY: Negative for cough, wheezing and shortness of breath CARDIOVASCULAR: Negative for chest pain, leg swelling and palpitations GI: Negative for abdominal discomfort, blood in stools or black stools and change in bowel habits : Negative for dysuria, frequency and incontinence MUSCULOSKELETAL: Negative for joint pain or swelling, back pain, and muscle pain. SKIN: Negative for lesions, rash, and itching. HEMATOLOGY/LYMPHOLOGY Negative for prolonged bleeding, bruising easily, and swollen nodes. ENDOCRINE: Negative for cold or heat intolerance, polyuria, polydipsia and goiter. NEURO: negative Physical Exam: Constitutional: Pt is a well developed 66 year old female who is alert, oriented and cooperative Eyes: Following during examination. No redness or drainage. Respiratory: RR normal and nonlabored. Even breathing. No evidence of distress or shortness of breath. Psychology: Patient is engaged during conversation. Normal affect and mood. Does not appear depressed or anxious during encounter. Vascular: Dorsalis pedis and posterior tibial pulses palpable as b/l Capillary Fill time < 5 seconds to digits 1-5 b/l Skin temperature warm to warm proximal to distal b/l Hair growth present to digits Neurological: intact light touch/epicritic sensation b/l intact protective sensation no significant neurological deficits Dermatological: Nails 1-5 b/l appear normal. Webspaces clean and dry 1-4 b/l. Skin appears well hydrated and supple. good color, texture, turgor. No open lesions present. No callosities present. Musculoskeletal/Orthopaedic: Patient has no pain to palpation of b/l feet Foot type is pronated structurally L>R AJ ROM is full with knee extended and flexed 1st MPJ is full when loaded and no pain or crepitus are noted with ROM. MTJ, STJ are full and free of pain and crepitus. +5/5 muscle strength dorsiflexion, plantarflexion, inversion, eversion b/l Radiographs: n/a ASSESSMENT: (M76.822) Posterior tibial tendon dysfunction, left (primary encounter diagnosis) (M21.41, M21.42) Pes planus of both feet PLAN: Discussed flatfoot leading to plantar arch pain. Recommend she continue with afo left and custom inserts right. Surgical options discussed for flatfoot. Patient not interested in surgery. Recommend stretching of b/l arch for arch pain. F/u prn Jo Ann Lind DPM Podiatry [address] [facility] [address] Dept: [phone] Dept * Mercy Reyez - 08/22/2021 2:56 PM EDT Patient presents with: Left Foot - New, abnormal gait Right Foot - New, abnormal gait New [facility] NoteHNO ID: [id number] Author: Sayda Reed MD Service: ? Author Type: Physician Type: Progress Notes Filed: 07/23/2021 11:53 AM Note Text: Richi Tello 1955 REFERRING PHYSICIAN: Self CHIEF COMPLAINT: Follow Up (R breast stereotactic biopsy) HPI: Richi is s/p right stereotactic breast biopsy at [facility] done for abnormal calcifications seen on right breast mammograms. This was done on 07/16/2021. Pathology from [facility] - hyalinized fibroadenoma with clustered microcalcifications. Focal ductal hyperplasia without atypia. Mild fibrocystic change. No evidence of malignancy. Patient notes only soreness in the area. Notes some bruising. PAST MEDICAL HISTORY Diagnosis Date - Achilles tendon rupture Left foot PAST SURGICAL HISTORY Procedure Laterality Date - COLONOSCOPY SCREENING 2017 - PAST SURGICAL HISTORY OF 01/05/1988 ulnar artery ligated in left arm Current Outpatient Medications Medication Sig - hydroCHLOROthiazide (HYDRODIURIL, ESIDRIX) 12.5 mg tablet Take 12.5 mg by mouth once daily. - meloxicam (MOBIC) 15 mg tablet Take 15 mg by mouth once daily. - CALCIUM CARBONATE/VITAMIN D3 (VITAMIN D-3 ORAL) Take 1,000 Units by mouth. - CALCIUM CARB/VIT D2/MINERALS (CALTRATE PLUS ORAL) Take by mouth. - ascorbic acid(VITAMIN C 500 MG TAB) Take one(1) tablet daily. - B COMPLEX VITAMINS CAP Take one(1) tablet daily. - multivitamins(DAILY MULTI-VITAMIN TAB) Take one(1) tablet daily. ALLERGIES: Patient has no known allergies. REVIEW OF SYSTEMS; Denies fevers PHYSICAL EXAMINATION: General: The patient is 66 year old female, well nourished, well hydrated in no acute distress. The patient is oriented to time, place, and person. VITALS: Blood pressure 126/72, pulse 87, temperature 36.3 ?C (97.3 ?F), height 157.5 cm (5' 2), weight 98.4 kg (217 lb), SpO2 98 %. Body mass index is 39.69 kg/m?. Head: Normal cephalic, atraumatic Eyes: pupils are equally round, sclera are clear/anicteric Neck is supple with no tracheal deviation Breast: slight ecchymoses at site - no hematoma noted, incision is clean/dry/intact - suture removed and steristrips placed Respiratory: Normal respiratory excursion and pattern. Abdominal exam: benign Extremities: no clubbing, cyanosis or edema. Neuro: non focal Psych: normal mood Assessment IMPRESSION: fibrocystic changes - right breast PLAN: Patient to return to routine breast cancer screening with mammograms. She can return to her PCP for this. Follow up with me if any worsening signs/symptoms. Patient acknowledges above. Diagnoses: (N60.11) Fibrocystic breast changes, right (primary encounter diagnosis) Return to Clinic: The patient is instructed to follow-up with me as above. Medical Decision Making: Problems: Low: Stable chronic illness Medical Decision Making Level: 2 - Straightforward Sayda Reed, [facility]04-19-2022 History of Present illness Narrative* Sayda Reed MD - 07/23/2021 11:47 AM EDT Richi Tello 1955 REFERRING PHYSICIAN: Self CHIEF COMPLAINT: Follow Up (R breast stereotactic biopsy) HPI: Richi is s/p right stereotactic breast biopsy at [facility] done for abnormalcalcifications seen on right breast mammograms. This was done on 07/16/2021. Pathology from [facility] - hyalinized fibroadenoma with clustered microcalcifications. Focal ductal hyperplasia without atypia. Mild fibrocystic change. No evidence of malignancy. Patient notes only soreness in the area. Notes some bruising. PAST MEDICAL HISTORY Diagnosis Date Achilles tendon rupture Left foot PAST SURGICAL HISTORY Procedure Laterality Date COLONOSCOPY SCREENING 2017 PAST SURGICAL HISTORY OF 01/05/1988 ulnar artery ligated in left arm Current Outpatient Medications Medication Sig hydroCHLOROthiazide (HYDRODIURIL, ESIDRIX) 12.5 mg tablet Take 12.5 mg by mouth once daily. meloxicam (MOBIC) 15 mg tablet Take 15 mg by mouth once daily. CALCIUM CARBONATE/VITAMIN D3 (VITAMIN D-3 ORAL) Take 1,000 Units by mouth. CALCIUM CARB/VIT D2/MINERALS (CALTRATE PLUS ORAL) Take by mouth. ascorbic acid(VITAMIN C 500 MG TAB) Take one(1) tablet daily. B COMPLEX VITAMINS CAP Take one(1) tablet daily. multivitamins(DAILY MULTI-VITAMIN TAB) Take one(1) tablet daily. ALLERGIES: Patient has no known allergies. REVIEW OF SYSTEMS; Denies fevers PHYSICAL EXAMINATION: General: The patient is 66 year old female, well nourished, well hydrated in no acute distress. Thepatient is oriented to time, place, and person. VITALS: Blood pressure 126/72, pulse 87, temperature 36.3 C (97.3 F), height 157.5 cm (5' 2), weight 98.4 kg (217 lb), SpO2 98 %. Body mass index is 39.69 kg/m . Head: Normal cephalic, atraumatic Eyes: pupils are equally round, sclera are clear/anicteric Neck is supple with no tracheal deviation Breast: slight ecchymoses at site - no hematoma noted, incision is clean/dry/intact - suture removed and steristrips placed Respiratory: Normal respiratory excursion and pattern. Abdominal exam: benign Extremities: no clubbing, cyanosis or edema. Neuro: non focal Psych: normal mood Assessment IMPRESSION: fibrocystic changes - right breast PLAN: Patient to return to routine breast cancer screening with mammograms. She can return to her PCP for this. Follow up with me if any worsening signs/symptoms. Patient acknowledges above. Diagnoses: (N60.11) Fibrocystic breast changes, right (primary encounter diagnosis) Return to Clinic: The patient is instructed to follow-up with me as above. Medical Decision Making: Problems: Low: Stable chronic illness Medical Decision Making Level: 2 - Straightforward Sayda Reed MD [facility]22 NoteHNO ID: [id number] Author: Sayda Reed MD Service: ? Author Type: Physician Type: Progress Notes Filed: 07/15/2021 1:57 PM Note Text: Richi Wong 1955 REFERRING PHYSICIAN: Self CHIEF COMPLAINT: Consult (abnormal mammogram) HPI: The patient is a 66 year old female presents with abnormal right breast mammograms. She denies palpable breast masses. She denies nipple discharge. She denies any breast pain. She denies previous breast biopsies. Her mother was diagnosed with breast cancer at an early age and passed due to cancer. Mammograms done at [facility] on 06/28/2021 - cluster of amorphous calcifications are seen in the deep inferior medial aspect of the right breast. Biopsy is recommended. BIRADS 4 PAST MEDICAL HISTORY Diagnosis Date - Achilles tendon rupture Left foot PAST SURGICAL HISTORY Procedure Laterality Date - COLONOSCOPY SCREENING 2017 - PAST SURGICAL HISTORY OF 01/05/1988 ulnar artery ligated in left arm Current Outpatient Medications Medication Sig - hydroCHLOROthiazide (HYDRODIURIL, ESIDRIX) 12.5 mg tablet Take 12.5 mg by mouth once daily. - meloxicam (MOBIC) 15 mg tablet Take 15 mg by mouth once daily. - CALCIUM CARBONATE/VITAMIN D3 (VITAMIN D-3 ORAL) Take 1,000 Units by mouth. - CALCIUM CARB/VIT D2/MINERALS (CALTRATE PLUS ORAL) Take by mouth. - B COMPLEX VITAMINS CAP Take one(1) tablet daily. - multivitamins(DAILY MULTI-VITAMIN TAB) Take one(1) tablet daily. - ascorbic acid(VITAMIN C 500 MG TAB) Take one(1) tablet daily. ALLERGIES: Patient has no known allergies. PERSONAL HISTORY: Social History Tobacco Use - Smoking status: Never Smoker - Smokeless tobacco: Never Used Vaping Use - Vaping Use: Never used Substance Use Topics - Alcohol use: Yes - Drug use: No FAMILY HISTORY Problem Relation Age of Onset - Breast Cancer Mother - Cancer Father Lung cancer The review of systems data was entered by the nurse and reviewed by ca Nursing Notes: Bailee Antonio RN 07/08/2021 2:30 PM Signed REVIEW OF SYSTEMS: General: The patient NOTES fatigue, denies weight loss, denies weight gain, denies feeling hot, and denies feelings of cold. Eyes: The patient denies glaucoma, denies eye injury/surgery, wears glasses or contacts. Ear/Nose/Throat: The patient denies allergies, denies hayfever, denies ear infections, and denies bloody noses. Cardiovascular: The patient denies chest pain, denies heart disease, denies high blood pressure,denies cardiac stent, denies prior heart attack, denies irregular heart beat, denies high cholesterol, denies poor circulation, denies heart failure, other cardiac issues, denies claudication, denies cold feet, denies peripheral arterial stent. Respiratory: The patient denies tuberculosis, denies pneumonia, denies frequent cough, denies pulmonary embolism, denies shortness of breath, and denies coughing up blood. Gastrointestinal: The patient denies difficulty swallowing, denies acid reflux, denies ulcers, denies vomiting, denies jaundice/hepatitis, denies gallbladder problems, denies black or tarry stools, denies hemorrhoids, denies bleeding from rectum, denies diverticulitis, denies constipation, denies diarrhea, denies loss of stool control, and NOTES hernias. Kidney/Bladder: The patient denies kidney stones, denies urine infections, and denies bloody urine. Skin: The patient denies a history of skin cancer, denies bleeding/changing moles, and denies a history of skin rash. Neurologic: The patient denies a history of epilepsy/convulsions, denies headaches, denies head/spinal injuries, and denies stroke/TIA. Psychiatric: The patient denies psychiatric medications, denies depression, and denies voices, denies substance abuse. Endocrine: The patient denies thyroid disorders, denies diabetes, and denies hormonal problems. Hematologic: notes easy bruising, denies prolonged /spontaneous bleeding, and denies anemia, denies blood clots. Infections: The patient denies a history of measles and mumps, denies rheumatic fever, and denies sexually transmitted diseases. Musculoskeletal: The patient denies back pain/injury, denies back problems, denies sciatica, denies knee/foot trouble, denies arthritis, or denies gout. Gynecological: menarche age 10, , first age 30, denies breast feeding, denies exogenous hormones use, menopause age 50, denies HRT When was patient's last Mammogram screening? 2021 Last Colonoscopy: 2017 Bailee Antonio RN PHYSICAL EXAMINATION: General: The patient is 66 year old female, well nourished, well hydrated in no acute distress. The patient is oriented to time, place, and person. VITALS: Blood pressure 144/84, pulse 92, temperature 36.9 ?C (98.4 ?F), height 160 cm (5' 3), weight 99.6 kg (219 lb 9.6 oz), SpO2 98 %. Body mass index is 38.9 kg/m?. Head ? Normocephalic. EOM intact with sclera clear and no icte (more content not included)...[facility] History of Present illness Narrative* Sayda Reed MD - 07/08/2021 6:29 PM EDT Richi Wong 1955 REFERRING PHYSICIAN: Self CHIEF COMPLAINT: Consult (abnormal mammogram) HPI: The patient is a 66 year old female presents with abnormal right breast mammograms. She denies palpable breast masses. She denies nipple discharge. She denies any breast pain. She denies previous breast biopsies. Her mother was diagnosed with breast cancer at an early age and passed due to cancer. Mammograms done at [facility] on 06/28/2021 - cluster of amorphous calcifications are seen inthe deep inferior medial aspect of the right breast. Biopsy is recommended. BIRADS 4 PAST MEDICAL HISTORY Diagnosis Date Achilles tendon rupture Left foot PAST SURGICAL HISTORY Procedure Laterality Date COLONOSCOPY SCREENING 2017 PAST SURGICAL HISTORY OF 01/05/1988 ulnar artery ligated in left arm Current Outpatient Medications Medication Sig hydroCHLOROthiazide (HYDRODIURIL, ESIDRIX) 12.5 mg tablet Take 12.5 mg by mouth once daily. meloxicam (MOBIC) 15 mg tablet Take 15 mg by mouth once daily. CALCIUM CARBONATE/VITAMIN D3 (VITAMIN D-3 ORAL) Take 1,000 Units by mouth. CALCIUM CARB/VIT D2/MINERALS (CALTRATE PLUS ORAL) Take by mouth. B COMPLEX VITAMINS CAP Take one(1) tablet daily. multivitamins(DAILY MULTI-VITAMIN TAB) Take one(1) tablet daily. ascorbic acid(VITAMIN C 500 MG TAB) Take one(1) tablet daily. ALLERGIES: Patient has no known allergies. PERSONAL HISTORY: Social History Tobacco Use Smoking status: Never Smoker Smokeless tobacco: Never Used Vaping Use Vaping Use: Never used Substance Use Topics Alcohol use: Yes Drug use: No FAMILY HISTORY Problem Relation Age of Onset Breast Cancer Mother Cancer Father Lung cancer The review of systems data was entered by the nurse and reviewed by ca Nursing Notes: Bailee Antonio RN 07/08/2021 2:30 PM Signed REVIEW OF SYSTEMS: General: The patient NOTES fatigue, denies weight loss, denies weight gain, denies feeling hot, anddenies feelings of cold. Eyes: The patient denies glaucoma, denies eye injury/surgery, wears glasses or contacts. Ear/Nose/Throat: The patient denies allergies, denies hayfever, denies ear infections, and denies bloody noses. Cardiovascular: The patient denies chest pain, denies heart disease, denies high blood pressure,denies cardiac stent, denies prior heart attack, denies irregular heart beat, denies high cholesterol, denies poor circulation, denies heart failure, other cardiac issues, denies claudication, denies cold feet, denies peripheral arterial stent. Respiratory: The patient denies tuberculosis, denies pneumonia, denies frequent cough, denies pulmonary embolism, denies shortness of breath, and denies coughing up blood. Gastrointestinal: The patient denies difficulty swallowing, denies acid reflux, denies ulcers, denies vomiting, denies jaundice/hepatitis, denies gallbladder problems, denies black or tarry stools, denies hemorrhoids, denies bleeding from rectum, denies diverticulitis, denies constipation, denies diarrhea, denies loss of stool control, and NOTES hernias. Kidney/Bladder: The patient denies kidney stones, denies urine infections, and denies bloody urine. Skin: The patient denies a history of skin cancer, denies bleeding/changing moles, and denies a history of skin rash. Neurologic: The patient denies a history of epilepsy/convulsions, denies headaches, denies head/spinal injuries, and denies stroke/TIA. Psychiatric: The patient denies psychiatric medications, denies depression, and denies voices, denies substance abuse. Endocrine: The patient denies thyroid disorders, denies diabetes, and denies hormonal problems. Hematologic: notes easy bruising, denies prolonged /spontaneous bleeding, and denies anemia, deniesblood clots. Infections: The patient denies a history of measles and mumps, denies rheumatic fever, and denies sexually transmitted diseases. Musculoskeletal: The patient denies back pain/injury, denies back problems, denies sciatica, deniesknee/foot trouble, denies arthritis, or denies gout. Gynecological: menarche age 10, , first age 30, denies breast feeding, denies exogenous hormones use, menopause age 50, denies HRT When was patient's last Mammogram screening? 2021 Last Colonoscopy: 2017 Bailee Antonio RN PHYSICAL EXAMINATION: General: The patient is 66 year old female, well nourished, well hydrated in no acute distress. Thepatient is oriented to time, place, and person. VITALS: Blood pressure 144/84, pulse 92, temperature 36.9 C (98.4 F), height 160 cm (5' 3), ssawfs33.6 kg (219 lb 9.6 oz), SpO2 98 %. Body mass index is 38.9 kg/m . Head Normocephalic. EOM intact with sclera clear and no icterus noted. Wearing glasses Neck - supple with no jugular venous distention noted. Trachea is midline. No thyroid enlargement or thyroid nodules detected. No masses noted. Chest/breast no asymmetry of breasts noted, no suspicious skin lesions noted, no nipple discharge and both nipples everted, no breast masses noted Lungs clear to auscultation. Normal breath sounds. No rales/rhonchi/wheezing noted. No labored breathing noted, such as retractions. No cough heard. Heart normal S1 and S2 auscultated. No rubs/clicks/murmurs noted. Regular rate. Abdomen soft and benign. Difficult to determine if any masses or organomegaly due to body habitus. Extremities no calf tenderness noted. No pitting edema noted. Skin normal skin integrity. Lymph no cervical adenopathy detected, no supraclavicular adenopathy detected, no axillary adenopathy detected Neurological gait normal, no focal deficits noted Psych calm and appropriate RADIOLOGIC STUDIES: As Noted Assessment IMPRESSION: abnormal right breast mammograms PLAN: I have discussed the above with the patient. I have reviewed the abnormal breast radiographs I have offered right breast stereotactic biopsy. I have explained the procedure to the patient. I have counseled the patient as to the risks of the procedure, including but not limited to: infection, bleeding, injury to any blood vessels/nerves, scar tissue, wound infections, complications of anesthesia, etc. the patient understands. The patient wishes to proceed. I have answered all questions to the patient s satisfaction and the patient has no further questions. I have confirmed and edited as necessary, the PFSH and ROS obtained by others. Consultation requested by Dr. Moore for an opinion regarding patient's abnormal right breast mammograms. My final recommendations will be communicated back to the requesting physician by way of shared Medical record or letter to requesting physician via US mail. . Diagnoses: (R92.1) Calcification of right breast on mammography (primary encounter diagnosis) Return to Clinic: The patient is scheduled for right stereotactic breast biopsy at [facility] (as per patient's wishes) on July 16. Medical Decision Making: Problems: Moderate: New problem with uncertain prognosis Data: Unique test result(s) reviewed: 1 Risk: Low: Low risk from testing/treatment Medical Decision Making Level: 3 - Low Sayda Reed MD [facility]04-[facility] Nurse Note* Bailee Antonio RN - 07/08/2021 2:29 PM EDT REVIEW OF SYSTEMS: General: The patient NOTES fatigue, denies weight loss, denies weight gain, denies feeling hot, anddenies feelings of cold. Eyes: The patient denies glaucoma, denies eye injury/surgery, wears glasses or contacts. Ear/Nose/Throat: The patient denies allergies, denies hayfever, denies ear infections, and denies bloody noses. Cardiovascular: The patient denies chest pain, denies heart disease, denies high blood pressure,denies cardiac stent, denies prior heart attack, denies irregular heart beat, denies high cholesterol, denies poor circulation, denies heart failure, other cardiac issues, denies claudication, denies cold feet, denies peripheral arterial stent. Respiratory: The patient denies tuberculosis, denies pneumonia, denies frequent cough, denies pulmonary embolism, denies shortness of breath, and denies coughing up blood. Gastrointestinal: The patient denies difficulty swallowing, denies acid reflux, denies ulcers, denies vomiting, denies jaundice/hepatitis, denies gallbladder problems, denies black or tarry stools, denies hemorrhoids, denies bleeding from rectum, denies diverticulitis, denies constipation, denies diarrhea, denies loss of stool control, and NOTES hernias. Kidney/Bladder: The patient denies kidney stones, denies urine infections, and denies bloody urine. Skin: The patient denies a history of skin cancer, denies bleeding/changing moles, and denies a history of skin rash. Neurologic: The patient denies a history of epilepsy/convulsions, denies headaches, denies head/spinal injuries, and denies stroke/TIA. Psychiatric: The patient denies psychiatric medications, denies depression, and denies voices, denies substance abuse. Endocrine: The patient denies thyroid disorders, denies diabetes, and denies hormonal problems. Hematologic: The patient denies a history of bruising, denies bleeding, and denies anemia, denies blood clots. Infections: The patient denies a history of measles and mumps, denies rheumatic fever, and denies sexually transmitted diseases. Musculoskeletal: The patient denies back pain/injury, denies back problems, denies sciatica, deniesknee/foot trouble, denies arthritis, or denies gout. When was patient's last Mammogram screening? 2021 Last Colonoscopy: 2017 Bailee Antonio [place] Diagnosis Calcification of right breast on mammography- Primary documented in this encounter [place] note* Diagnosis Fibrocystic breast changes, right- Primary documented in this encounter [place] note* Diagnosis Posterior tibial tendon dysfunction, left- Primary Pes planus of both feet documented in this encounter [place] note* Diagnosis Onset Date Resolution Status Bilateral ankle pain noneact bernadine Osteoarthritis of knees, bilateral noneactive BMI 39.0-39.9,adult noneacti ve [facility] Work Phone: Evaluation noteNo assessment information available [facility] Work Phone: Summary Purpose Family History No Family History Records Found Relationship Condition Age at Onset Recorded Date/T sahil Unknown Family History?Cancer Unknown 2019 6:57am Family History?Cancer Unknown 2019 6:57am Relationship Condition Age at Onset Recorded Date/T sahil Unknown Family History?Cancer Unknown 2019 7:57am Family History?Cancer Unknown 2019 7:57am Advance Directives No Advanced Directives Records Found Advance Directive Response Recorded Date/ Time Living Will Yes January 01, 2020 6:32am Power of Avionics System Engineer Yes December 6:32am Advance Directive Response Recorded Date/ Time Living Will Yes January 01, 2020 7:32am Power of Avionics System Engineer Yes December 7:32am Chief Complaint and Reason for Visit Chief Complaint bilat ankle/knees Xray room 3 BILATERAL OA/PAIN. RX HERE Reason for Visit Bilateral ankle pain Osteoarthritis of knees, bilateral BMI 39.0-39.9,adult Chief Complaint SCREENING Additional Source Comments Source Comments (unrecognize d section and content) In the event this informatio n is protected by the Federal Confidentiality of Alcohol and Drug Abuse Patient Records regulations: The Federal rules restrict any use of the information to criminally investigate or prosecute any alcohol or drug abuse patient.[facility] the event this information is protected by the Federal Confidentiality of Alcohol and Drug Abuse Patient Records regulations: The Federal rules restrict any use of the information to criminally investigate or prosecute any alcohol or drug abuse patient.[facility] the event this information is protected by the Federal Confidentiality of Alcohol and Drug Abuse Patient Records regulations: The Federal rules restrict any use of the information to criminally investigate or prosecute any alcohol or drug abuse patient.[facility] Reason for Visit (unrecogniz ed section and content) Reason Comments Consult abnormal mammogram Reason Comments Follow Up R breast stereotacti c biopsy Reason Comments New orthotic order New abnormal gait INFORMATION SOURCE (unrecogn ized section and content) DATE CREATED AUTHOR 09/26/2021 [facility] DATE CREATED AUTHOR AUTHOR'S ORGANIZ ATION 09/24/2024 [facility] Care Teams (unrecognized sec tion and content) Team Status: Active Member Role Status Dates No Primary Care Physician Family Provider Active Dr. Margaret Moore , DO Primary Care Provider Active Team Status: Inactive Member Role Status Dates Dr. Margaret Moore DO Primary Care Provider, Referring P rovider Active Beronica KOHLI PA Attending Provider Active Team Status: Inactive Member Role Status Dates Dr. Margaret Moore DO Primary Care Provider Active Dr. Ambrose Berman MD Attending Provider Active Team Status: Inactive Member Role Status Dates Dr. Margaret Moore , DO Primary Care Provider Active KAMILLA Wells Attending Provider, Referring Provi brennon Active Team Status: Inactive Member Role Status Dates Dr. Margaret Moore , DO Primary Care Provide r, Attending Provider, Referring Provider Active Goals (unrecognized section and content) Goals may be documented in a n alternate sectionGoals may be documented in an alternate section FOR RECORDS PERTAINING TO PATIENTS WHO ARE OR HAVE BEEN ENROLLED IN A CHEMICAL DEPENDENCY/SUBSTANCEABUSE PROGRAM, SOME INFORMATION MAY BE OMITTED. This clinical summary was aggregated from multiple sources. Caution should be exercised in using it in the provision of clinical care. This summary normalizes information from multiple sources, and as a consequence, information in this document may materially change the coding, format and clinical context of patient data. In addition, data may be omitted in some cases. CLINICAL DECISIONS SHOULD BE BASED ON THE PRIMARY CLINICAL RECORDS. [employer] [facility]. provides no warranty or guarantee of the accuracy or completeness of information in this document.
== END | disposition home or self-care (01) ==
LOC: PSN 12:13
PROVIDERS: PCP Family Medicine; Referring Provider Family Medicine; Visit Provider Family Medicine
DX: M79.605 Pain in left leg (principal); S84.12XA Injury of peroneal nerve at lower leg level, left leg, initial encounter
CPT/HCPCS: 95886; 95908

== ENCOUNTER → 2024-10-24 | Outpatient (CLI) | payer MEDICARE, BC, SELFPAY ==
--- NOTE | 2024-10-24 14:12 | BI_ITS ---
EXAM: SCRN MAMM (CAD)W/ODALYS BILAT DATE: 10/24/2024 CLINICAL HISTORY: F, Age 69 y/o , SCREENING TECHNIQUE: SCRN MAMM (CAD)W/ODALYS BILAT COMPARISON: Prior exam(s) dated 10/22/2023 and 10/20/2022. FINDINGS: TISSUE DENSITY: There are scattered areas of fibroglandular density. Bilateral Breast Mammographic Findings: No suspicious masses, suspicious cluster of microcalcifications, architectural distortion or secondary signs of malignancy is identified in either breast. Benign-appearing round microcalcifications are seen in both breast. Stable clusters of benign-appearing round and punctate calcifications are seen in both breasts. A radiopaque clip is seen in the right breast. The biopsy was benign. Post biopsy site is stable. There is a 13.7 x 9.4 cm heterogeneous mass in the superior outer aspect of the right breast which has a stable appearance. There is a 14.7 x 9.1 cm heterogeneous mass in the superior outer aspect of the left breast which has a stable appearance. BI/SCRN MAMM (CAD)W/ODALYS BILAT IMPRESSION: Benign screening mammogram. OVERALL FINAL ASSESSMENT BI-RADS 2: BENIGN RECOMMENDATION: Routine annual follow-up in 1 Year A letter with findings and recommendations will be mailed to the patient. Reading Location: [id number]
--- OUTSIDE RECORDS SUMMARY | 2024-10-24 21:04 | XMS RPT_ITS | CCD ---
Author Organization [facility] Care Team Providers Care Yield Loss Inspector Name Role Phone Unavailable Primary Care Provider Unavailabl e Dr. Margaret Moore Primary Care Provider [phone] Teresa, Dr. Robles Referring Provider [phone] KAMILLA Mayers Attending Provider [phone] Dr. Ambrose Berman Attending Provider [phone] Teresa SCOTT, Dr. Robles Primary Care Provider [phone] Dr. Margaret Moore DO Referring Provider [phone] Dr. Anam Jensen DO Attending Provider Dr. Margaret Moore DO Attending Provider [phone] Teresa SCOTT, Dr. Robles Other Provider [phone] Nora DILL, Dr. Mcfarlane Attending Provider [phone] Malys, Margraet Primary Care Unavailable Malys, Margaret Attending Unavailable Malys, Margaret Referring Unavailable Malys, Margaret Primary Care Unavailable Malys, Margaret Attending Unavailable Malys, Margaret Referring Unavailable Malys, Margaret Primary Care Unavailable Malys, Margaret Attending Unavailable Malys, Margaret Referring Unavailable Malys, Margaret Primary Care Unavailable Anam Jensen Attending Unavailable Malys, Margaret Referring Unavailable Malys, Margaret Consulting Unavailable Denys Melendez Attending Unavailable Malys, Margaret Referring Unavailable Malys, Margaret Primary Care Unavailable Medications Current Medications Medication Drug Class(es) Dates Sig (Normalized) Sig (Original) Ca Carb-D3-Mag Vi-Uoj-Whiw-Zn (Caltrate + D3 Plus Minerals) 300 mg-800 unit -25 mg-0.5 mg tablet (3 sources) Start: 02-12-2022 take 1 tablet by mouth once daily Ca Carb-D3-Mag Fb-Qlh-Ubme-Zn (Caltrate + D3 Plus Minerals) 300 mg-800 unit -25 mg-0.5 mg tablet Active 1 {tbl} PO DAILY February 12, 2022 1:00am Start: 02-12-2022 take 1 tablet by jose th once daily Ca Carb-D3-Mag Jk-Bwk-Hgoe-Zn (Caltrate + D3 Plus Minerals) 300 mg-800 unit -25 mg-0.5 mg tablet Active 1 TABLET PO DAILY February 12, 2022 1:00am Start: 02-12-2022 take 1 tablet by jose th once daily Ca Carb-D3-Mag Qe-Ort-Hufm-Zn (Caltrate + D3 Plus Minerals) 300 mg-800 unit -25 mg-0.5 mg tablet Active 1 TABLET PO DAILY February 12, 2022 12:00am cholecalciferol 0.125 mg oral capsule (1 source) Vitamin D Start: 07-18-2024 take 1 capsule by mouth once daily Cholecalciferol (Vitamin D3) 125 mcg (5,000 unit) capsule Active 125 ug PO daily July 18, 2024 12:00am hydroCHLOROthiazide 12.5 mg oral tablet (6 sources) Thiazide Diuretic Start: 02-12-2022 take 1 tablet by mouth once daily Hydrochlorothiazide 12.5 mg tablet Active 12.5 mg PO DAILY February 12, 2022 1:00am Start: 05-01-2021 take 1 tablet by jose th once daily hydroCHLOROthiazide (HYDRODIURIL, ESIDRIX) 12.5 mg tablet Take 12.5 mg by mouth once daily. 0 05/01/2021 Active Comment on above: Take 12.5 mg by mout h once daily. meloxicam 15 mg oral tablet (6 sources) Nonsteroidal Anti-inflammatory Drug Start: 02-12-2022 take 1 tablet by mouth once daily Meloxicam 15 mg tablet Active 15 mg PO DAILY February 12, 2022 1:00am Start: 05-01-2021 take 1 tablet by jose th once daily meloxicam (MOBIC) 15 mg tablet Take 15 mg by mouth once daily. 0 05/01/2021 Active Comment on above: Take 15 mg by mouth once daily. Imyzhjsm-Nlp-Kq-Lyc open-Lutein (Centrum Silver) 0.4 mg-300 mcg- 250 mcg tablet (3 sources) Start: 02-12-2022 take 1 tablet by mouth once daily Gpdwzxjv-Ges-Qk-Lyc open-Lutein (Centrum Silver) 0.4 mg-300 mcg- 250 mcg tablet Active 1 {tbl} PO DAILY February 12, 2022 1:00am Start: 02-12-2022 take 1 tablet by jose th once daily Wjmmqobw-Mqy-Bc-Lycopen-Lutein (Centrum Silver) 0.4 mg-300 mcg- 250 mcg tablet Active 1 TABLET PO DAILY February 12, 2022 1:00am Start: 02-12-2022 take 1 tablet by jose th once daily Qotlzfvg-Fhv-Pt-Lycopen-Lutein (Centrum Silver) 0.4 mg-300 mcg- 250 mcg tablet Active 1 TABLET PO DAILY February 12, 2022 12:00am vitamin b12 1 mg sublingual tablet (3 sources) Vitamin B12 Start: 02-12-2022 take 1 tablet under the tongue once daily Cyanocobalamin (Vitamin B-12) 1,000 mcg tablet, sublingual Active 1000 ug SL DAILY February 12, 2022 1:00am Completed/Discontinued [...] guaiFENesin 600 mg extended release oral tablet (3 sources) Start: 01-02-2020 End: 02-12-2022 take 1 tablet by mouth twice daily Guaifenesin 600 MG tablet extended release 12hr Discontinued 600 mg PO TWICE A DAY 10 January 02, 2020 12:00am February 12, 2022 2:53pm levoFLOXacin 750 mg oral tablet (3 sources) Quinolone Antimicrobial Start: 01-02-2020 End: 02-12-2022 take 1 tablet by mouth once daily Levofloxacin 750 MG tablet Discontinued 750 mg PO DAILY 5 January 02, 2020 12:00am February 12, 2022 [...] on diagnostic imaging of breast] Episodic Osteoarthritis (8 sources) Arthritis; Translations: [Unspecified osteoarthritis, unspecified site] 12-31-2019 Chronic Comment on above: Wears brace left ank le for ankle/knee arthritic issues Other connective tissue disease (1 source) Dysfunction of posterior tibial tendon of left foot; Translations: [Posterior tibial tendinitis, left leg] Episodic Other connective tissue disease (2 sources) Pain in left leg; Translations: [Pain in left leg] Onset: 10-02-2024 Episodic Other injuries and conditions due to external causes (1 source) Injury of peroneal nerve at lower leg level, left leg, initial encounter; Translations: [Injury of peroneal nerve at lower leg level, left leg, initial encounter] Onset: 10-02-2024 Episodic Other lower respiratory disease (3 sources) Hypoxemia; Translations: [Hypoxemia] 01-01-2020 Episodic Other non-traumatic joint disorders (1 source) Pain in right ankle and joints of right foot; Translations: [Pain in joint, ankle and foot] 02-12-2022 Episodic Other nutritional; endocrine; and metabolic disorders (1 source) Body mass index (BMI) 39.0-39.9, adult; Translations: [Body Mass Index 39.0-39.9, adult] 02-12-2022 Chronic Other nutritional; endocrine; and metabolic disorders (2 sources) Obesity; Translations: [Obesity, unspecified] 07-18-2024 Chronic Other screening for suspected conditions (not mental disorders or infectious disease) (2 sources) Encounter for screening mammogram for malignant neoplasm of breast; Translations: [Encounter for screening mammogram for malignant neoplasm of breast] Onset: 11-16-2023 Episodic Pneumonia (except that caused by tuberculosis or sexually transmitted disease) (3 sources) Pneumonia; Translations: [Pneumonia, unspecified organism] 01-01-2020 Episodic Past or Other Problems Problem Classification Problem Date Documented Da te Episodic/Chronic Other connective tissue disease (3 sources) Calcaneal spur; Translations: [Calcaneal spur, unspecified foot] Onset: 07-18-2009 07-18-2009 Episodic Results Test Name Value Interpretation Reference Range Facility NCS and/or EMG Patienton NCS and/or EMG Patient [facility] Pulmonary Services/Neurology [address] [place] [address] MR#: [id number] Acct: [id number] Name: RICHI TELLO (MOISES) R Rep #: [id number] : 1955 69 From: Denys Melendez MD Referring Dr: Margaret Moore DO Status: REG CLI Location: PSN Date: 09/27/24 Sex: F C NCS and/or EMG Patient Report Ordering Doctor: Margaret Moore DATE OF SERVICE: 09/27/24 Clinical Summary: 69 year old female patient with symptoms of discomfort from the posterior thigh down to the mid-calf region in the left lower extremity. Nerve Conduction Studies Summary: Nerve conduction studies of the left lower extremity were within normal range. Needle Examination Summary: Needle examination of select muscles of the left lower extremity was normal. Impression: This is a normal study. There is no electrodiagnostic evidence of a left lumbosacral radiculopathy, peroneal mononeuropathy, or large-fiber peripheral polyneuropathy. Multi Select Codes Neurology Neurology Interp Codes: 47492-23 Musc test done w/n test comp (interp) (1) and 85871-57 Nrv cndj tst 3-4 studies (interp) 09/27/24 1447 Date Denys Melendez MD CC: Dr. Denys Melendez MD; Dr. Margaret Moore DO Date Dictated: 09/27/24 1328 Date Transcribed: 09/27/241327 Tin Flipper: Signed Normal [facility] Orthopedic Visit Reporton Orthopedic Visit Report [facility] [address] [address] OFFICE VISIT Date of Service: 07/18/24 MR#: [id number] Acct: [id number] Name: RICHI TELLO (MOISES) R Rep #: [id number] : 1955 Provider: Dr. Anam fleming DO Age/Sex: 69/F [place] [facility] Status: Signed Intake Vital Signs 02/12/22 13:52 Height 5 ft 2 in Intake Visit Reasons: BILATERAL KNEES Allergies No Known Allergies Allergy (Verified 07/18/24 15:39) Medications ???Medication ???Instructions ???Recorded ???Confirmed ???Type calcium 300 mg-D3 20 mcg-magnesium 1 tab PO DAILY 02/12/22 07/18/24 History 25 mg-coppr 0.5 kd-qpje-pgzc tablet (Caltrate-D3 Plus Minerals) cyanocobalamin (vitamin B-12) 1,000 mcg sublingual DAILY 2 07/18/24 History 1,000 mcg sublingual tablet hydrochlorothiazide 12.5 mg tablet 12.5 mg PO DAILY 02/12/22 History meloxicam 15 mg tablet 15 mg PO DAILY 02/12/22 07/18/24 H istory ogsfvhhh-vex-fqvid acid 0.4 1 tab PO DAILY 02/12/22 [...] by Irene RODRIGUEZ, acting as scribe. RICHI STRAUSS) LESLIE is a 69 year old F here today for bilateral knee issues. She saw Beronica Rocha in 2021 and had gotten bilateral medial store merchandiser web reaction brace for both knees and [...] 02/12/2022 x-ray left knee: Advanced knee arthrosis kjhw-es-mgcz medial compartment with varus deformity, severe patellofemoral arthrosis 02/12/2022 x-ray right knee: Advanced knee arthrosis fxxc-ev-xjys medial compartment with varus deformity, severe patellofemoral [...] done very well with web reaction medial store merchandiser braces for the last 3 years that [...] treatment today. (more content not included)... Normal [facility] SCRN MAMM (CAD)W/ODALYS [place] n 10-22-2023 [facility]CRN M[facility]M [facility] Imaging Services [address] [place], [place] [id number] SCRN MAMM (CAD)W/ODALYS ARAIZA MR#: [id number] Acct: [id number] Name: RICHI TELLO Rep #: [id number] : 1955 F 68 From: Roderick moncada MD PCP: Dr. Margaret Moore DO Status: [facility] Study: SCRN MAMM (CAD)W/ODALYS BILAT Date of Exam: 10/04 11/27 Exam# [id number] Ordering [place]: [place] [id number] MAMMOGRAPHY - BILATERAL SCREENING REASON FOR EXAM: [...] delay biopsy of a clinically suspicious abnormality. [id number] Electronically Signed: Roderick Lyons MD at 15:24 EDT , CC: Dr. Margaret Moore, Tin Flipper: Signed Normal [facility] Absolute lymphocyte countOrd ered By: Margaret Moore on 08-19-2022 Lymphocytes Auto (Unsp spec) [#/Vol] 1.03 10*3/uL 0.83-4.51 [facility] Basophil percentageOrdered B y: Margaret Moore on 08-19-2022 Basophils/100 WBC (Bld) 0.5 % 0-1 [facility] Bilirubin [Mass/Vol] 0.60 mg/dL 0.20-1.00 [facility] Comment on above: For patients on eltr ombopag therapy, use of Dimension [place] TBIL is not recommended. Chloride [Moles/Vol] 106 mmol/L 98-107 [facility] Cholesterol [Mass/Vol] 193 mg/dL <200 [facility] Comment on above: <200 mg/dL Desirable 200-240 mg/dL Borderline >240 mg/dL High Risk Eosinophils/100 WBC (Bld) 3.4 % 0-5 [facility] Glucose [Mass/Vol] 90 mg/dL 74-106 [facility] Neutrophils (Bld) [#/Vol] 2.4 10*3/uL 2.0-7.7 [facility] Neutrophils/100 WBC (Bld) 59.6 % 47-70 [facility] Potassium [Moles/Vol] 4.1 mmol/L 3.5-5.1 [facility] Protein [Mass/Vol] 7.5 g/dL 6.4-8.2 [facility] Sodium [Moles/Vol] 142 mmol/L 136-145 [facility] Triglyceride [Mass/Vol] 125 mg/dL <199 [facility] Comment on above: The drugs N-Acetylcy steine and Metamizole may falsely depress this assay.Serum Triglycerides Reference Interval Normal <150 mg/dL Borderline high 150 - 199 mg/dL High 200 - 499 mg/dL Very High > or = 500 mg/dL WBC (Bld) [#/Vol] 4.1 10*3/uL 4.4-11.0 [facility] Blood erythrocytes count (nu mber/volume)Ordered By: Margaret Moore on 08-19-2022 RBC (Bld) [#/Vol] 4.45 10*6/uL 4.2-5.4 [facility] Blood hemoglobin measurement (mass/volume)Ordered By: Margaret Moore on 08-19-2022 Hemoglobin (Bld) [Mass/Vol] 13.6 g/dL 12.0-15.0 [facility] Blood lymphocytes/100 leukoc ytesOrdered By: Margaret Moore on 08-19-2022 Lymphocytes/100 WBC (Bld) 25.2 % 19-41 [facility] Blood monocytes/100 leukocyt esOrdered By: Margaret Moore on 08-19-2022 Monocytes/100 WBC (Bld) 10.8 % 0-10 [facility] Blood platelet mean volumeOr dered By: Margaret Moore on 08-19-2022 Platelet mean volume (Bld) [Entitic vol] 8.7 fL 6.2-12.0 [facility] Determination of erythrocyte mean corpuscular volume (MCV)Ordered By: Margaret Moore on 08-19-2022 MCV (RBC) [Entitic vol] 93.9 fL 81-99 [facility] Hematocrit Auto (Bld) [Volum e fraction]Ordered By: Margaret Moore on 08-19-2022 Hematocrit (Bld) [Volume fraction] 41.8 % 37-47 [facility] Laboratory - Chemistry and C hemistry - challengeOrdered By: Margaret Moore on 08-19-2022 ALP [Catalytic activity/Vol] 69 U/L 45-117 [facility] ALT [Catalytic activity/Vol] 27 U/L 13-56 [facility] CO2 [Moles/Vol] 28.0 mmol/L 21.0-32.0 [facility] Globulin (S) [Mass/Vol] 3.8 g/dL 2.2-4.2 [facility] Urea nitrogen/Creatinine [Mass ratio] 22.7 mg/mg 10-20 [facility] Laboratory - Hematology and Cell countsOrdered By: Margaret Moore on 08-19-2022 Erythrocyte distribution width (RBC) [Entitic vol] 44.3 fL 35.1-43.9 [facility] Erythrocyte distribution width (RBC) [Ratio] 12.9 % 11.6-14.6 [facility] Immature granulocytes/100 WBC (Bld) 0.500 % 0.0-0.9 [facility] Comment on above: IG% - Immature Granu locytes (promyelocytes, myelocytes and metamyelocytes) > 1% indicates that a LEFT SHIFT is Present. MCH (RBC) [Entitic mass] 30.6 pg 27.0-32.0 [facility] Nucleated RBC/100 WBC (Bld) [Ratio] 0 % 0-5 [facility] MCHC Auto (RBC) [Mass/Vol]Or dered By: Margaret Moore on 08-19-2022 MCHC (RBC) [Mass/Vol] 32.5 g/dL 32-36 [facility] No Panel InformationOrdered By: Margaret Moore on 08-19-2022 Estimated GFR (MDRD) Amer 114 mL/min >60 [facility] Comment on above: GFR Calc Estimated GFR (MDRD) Non-Af Amer 94 mL/min >60 [facility] Comment on above: Non- GFR Calc Vitamin D 25-Hydroxy 52.6 ng/mL [facility] Comment on above: Vitamin D 25(OH) Sta tus Range Deficiency <20 ng/mL (50nmol/L) Insufficiency 20 - 30 ng/mL (50 - 75 nmol/L) Sufficiency 30 - 100 ng/mL (75 - 250 nmol/L) Toxicity >100 ng/mL (>250 nmol/L) Platelets bldOrdered By: Karlene Moore on 08-19-2022 Platelets (Bld) [#/Vol] 360 10*3/uL 150-450 [facility] Serum or plasma albumin austin urement (mass/volume)Ordered By: Margaret Moore on 08-19-2022 Albumin [Mass/Vol] 3.7 g/dL 3.2-5.0 [facility] Serum or plasma albumin/glob ulin mass ratioOrdered By: Margaret Mooer on 08-19-2022 Albumin/Globulin [Mass ratio] 1.0 {ratio} 0.9-2.4 [facility] Serum or plasma calcium austin urement (mass/volume)Ordered By: Margaret Moore on 08-19-2022 Calcium [Mass/Vol] 9.4 mg/dL 8.5-10.1 [facility] Serum or plasma cholesterol in HDL measurement (mass/volume)Ordered By: Margaret Moore on 08-19-2022 Cholesterol in HDL [Mass/Vol] 58 mg/dL >40 [facility] Comment on above: The drugs N-Acetylcy steine and Metamizole may falsely depress this assay. Reference Range HDL <40 mg/dL Low HDL Cholesterol HDL >or= 60 mg/dL High HDL Cholesterol Serum or plasma cholesterol in VLDL measurement (mass/volume)Ordered By: Margaret Moore on 08-19-2022 Cholesterol in VLDL [Mass/Vol] 25 mg/dL 5-40 [facility] Serum or plasma creatinine m easurement (mass/volume)Ordered By: Margaret Moore on 08-19-2022 Creatinine [Mass/Vol] 0.66 mg/dL 0.55-1.02 [facility] Comment on above: The validity of the calculated GFR & GFRAA in patients over 70 years has not been determined. Clinical correlation is essential. Serum or plasma low density lipoprotein (LDL) cholesterol measurement (mass/volume)Ordered By: Margaret Moore on 08-19-2022 Cholesterol in LDL [Mass/Vol] 110 mg/dL 0-130 [facility] Serum or plasma urea nitroge n measurement (mass/volume)Ordered By: Margaret Moore on 08-19-2022 Urea nitrogen [Mass/Vol] 15 mg/dL 7-18 [facility] Thin prep Papanicolaou smear with manual screeningOrdered By: Margaret Moore on 08-19-2022 Thin prep Papanicolaou smear with manual screening 16 U/L 15-37 [facility] Thin prep Papanicolaou smear with manual screening 8 5-15 [facility] CNOVon 08-22-2021 CNOV Office Visit (PODIWS ) RICHI TELLO ([id number]) 1955 F Date Time Provider Department 08/22/21 [...] pain second to flatfoot. She presented to [employer] and she had her afo modified. Patient [...] of b/l arch for arch pain. F/u vandana Lind DPM Podiatry [address] [facility] [address] Dept: [phone] (more content not included)... [facility] 07-[facility]21 CNOV Office Visit (CHACORTA ) RICHI TELLO ([id number]) 1955 F Date Time Provider Department 07/23/21 [...] is s/p right stereotactic breast biopsy at [facility] done for abnormal calcifications seen on right breast mammograms. This was done on 07/16/2021. Pathology from [facility] - hyalinized fibroadenoma with clustered microcalcifications. Focal ductal hyperplasia without atypia. Mild fibrocystic change. No evidence of malignancy. Patient notes only soreness in the area. Notes some bruising. PAST MEDICAL HISTORY Diagnosis Date - Achilles tendon rupture Left foot PAST SURGICAL HISTORY Procedure Laterality Date - COLONOSCOPY SCREENING 2018 - PAST SURGICAL HISTORY OF 01/05/1988 ulnar [...] for Encounter Date Provider Department Center 07/23/2021 [id number] REEDoster [facility] Encounter Status:Closed by SAYDA REED on 07/23/21 [facility] CNOVred 07-08-2021 CNOV Office Visit (GENSWS ) RICHI TELLO ([id number]) 1955 F Date Time Provider Department 07/08/21 [...] ZOFIA Antoine MD 07/15/2021 1:57 PM Addendum Ricih Wong 1955 REFERRING PHYSICIAN: Self CHIEF COMPLAINT: Consult (abnormal mammogram) HPI: The patient is a 66 year old female presents with abnormal right breast mammograms. She denies palpable breast masses. She denies nipple discharge. She denies any breast pain. She denies previous breast biopsies. Her mother was diagnosed with breast cancer at an early age and passed due to cancer. Mammograms done at [facility] on 06/28/2021 - cluster of amorphous calcifications are seen in the deep inferior medial aspect of the right breast. Biopsy is recommended. BIRADS 4 PAST MEDICAL HISTORY Diagnosis Date - Achilles tendon rupture Left foot PAST SURGICAL HISTORY Procedure Laterality Date - COLONOSCOPY SCREENING 2018 - PAST SURGICAL HISTORY OF 01/05/1988 ulnar [...] entered by the nurse and reviewed by ne Nursing Notes: Bailee Antonio RN 07/08/2021 2:30 PM Signed REVIEW OF SYSTEMS: General: The patient NOTES fatigue, denies weight loss, denies weight gain, denies feeling hot, and denies feelings of cold. Eyes: The patient denies glaucoma, denies eye injury/surgery, wears glasses o (more content not included)... [facility] 07-08-2021 [place] Telephone ([employer]) RICHI TELLO ([id number]) 1955 F Date Time Provider Department 07/08/21 SAYDA REED During your visit today, we recorded the following information about you: Artur Green 07/08/2021 2:47 PM Signed 07-16-2021 [facility] [employer] [facility] Allergies As of Date: 07/08/2021 (No Known Allergies) Date Reviewed: 07/08/2021 Reviewed by: Bailee Antonio RN - Fully Assessed Reason for Visit: 07-16-2021 [facility] [employer] [facility] [Other] Prescriptions as of 07/18/2021 - hydroCHLOROthiazide [...] Status:Closed by ARTUR GREEN on 07/18/21 [facility] Vital Signs Date Time Vital Sign Value Performing Clinician Jasmine mercado 02-12-2022 13:52-0500 Body height 157.[address] Margaret Moore Work Phone: [facility] 02-12-2022 13:52-0500 Body mass index (BMI) [Ratio] 39.9 kg/m2 Dr. Margaret Moore Work Phone: [facility] 02-12-2022 13:52-0500 Body weight 98.[address] Margaret Moore Work Phone: [facility] 07-23-2021 10:12-0400 Body height 157.5 cm Sayda Reed MD Work Phone: [facility] 07-23-2021 10:12-0400 Body temperature 97.3 [degF] Sayda Reed MD Work Phone: [facility] 07-23-2021 10:12-0400 Body weight 98.43 kg Sayda Reed MD Work Phone: [facility] 07-23-2021 10:12-0400 Diastolic blood pressure 72 mm[Hg] Sayda Reed MD Work Phone: [facility] 07-23-2021 10:12-0400 Heart rate 87 /min Sayda Reed MD Work Phone: [facility] 07-23-2021 10:12-0400 SaO2% (BldA) [Mass fraction] 98 % Sayda Reed MD Work Phone: [facility] 07-23-2021 10:12-0400 Systolic blood pressure 126 mm[Hg] Sayda Reed MD Work Phone: [facility] 07-08-2021 14:21-0400 Body height 160 cm Sayda Reed MD Work Phone: [facility] 07-08-2021 14:21-0400 Body temperature 98.4 [degF] Sayda Reed MD Work Phone: [facility] 07-08-2021 14:21-0400 Body weight 99.61 kg Sayda Reed MD Work Phone: [facility] 07-08-2021 14:21-0400 Diastolic blood pressure 84 mm[Hg] Sayda Reed MD Work Phone: [facility] 07-08-2021 14:21-0400 Heart rate 92 /min Sayad Reed MD Work Phone: [facility] 07-08-2021 14:21-0400 SaO2% (BldA) [Mass fraction] 98 % Sayda Reed MD Work Phone: [facility] 07-08-2021 14:21-0400 Systolic blood pressure 144 mm[Hg] Sayda Reed MD Work Phone: [facility] Encounters Encounter Date Encounter Type Care Provider Facility [facility]: [facility] Start: 09-27-2024 [facility] Start: 09-27-2024 Non-patient / Non-visit Dr. Denys chavez MD -[facility]- Start: 09-27-2024 End: 09-27-[address] Margaret Moore DO Work Phone: -Pulmonary Services/Neurology Start: 09-27-2024 End: 09-27-[address] Margaret Moore DO -Pulmonary Services/Neurology Work Phone: Start: 09-27-2024 End: 09-27-2024 [facility] Start: 07-18-2024 End: 07-18-[address] Anam Jensen DO -[facility] Work Phone: Start: 07-18-2024 End: 07-18-2024 [facility] Start: 10-22-2023 End: 10-22-2023 [facility] Start: 10-20-2022 End: 10-20-2022 ambulatory [facility] Work Phone: Start: 10-20-2022 End: 10-20-2022 Patient encounter procedure [facility]-Outpatient Breast Imaging Work Phone: Start: 08-19-2022 End: 08-19-2022 Patient encounter procedure [facility]don[facility] Start: 06-05-2022 End: 06-05-[address] Margaret Moore Work Phone: [facility] Work Phone: Start: 06-05-2022 End: 06-05-[address] Margaret Moore Work Phone: [facility]-Physical Therapy Start: 02-12-2022 End: 02-12-[address] Margaret Moore Work Phone: [facility] Start: 08-22-2021 End: 08-22-2021 Patient encounter procedure Jo Ann Suhesha Work Phone: Podiatry Comment on above: Posterior [...] Activity Detail Author Start: 02-14-2022 Patient referral [facility] Work Phone: Start: 12-05-2021 Influenza vaccination INFLUENZA (Season Ended) [facility] Start: 04-06-2021 ADVANCE DIRECTIVE DISCUSSION ADVANCE DIRECTIVE DISCUSSION [facility] Start: 2018 BONE DENSITY BONE DENSITY [facility] Start: 2018 PNEUMOVAX AGE 65 AND OVER WITH 5YR LOOKBACK (#1) PNEUMOVAX AGE 65 AND OVER WITH 5YR LOOKBACK (#1) [facility] Start: 2003 SHINGRIX VACCINE (1 of 2) SHINGRIX VACCINE (1 of 2) [facility] Start: 1998 COLOGUARD (FIT-DNA) COLOGUARD (FIT-DNA) [facility] Start: 1998 Colonoscopy COLONOSCOPY [facility] Start: 1998 COLORECTAL CANCER SCREENING COLORECTAL CANCER SCREENING [facility] Start: [address] COLONOGRAPHY [facility] Start: 1998 DIABETES SCREEN DIABETES SCREEN [facility] Start: 1998 FECAL OCCULT BLOOD FECAL OCCULT BLOOD [facility] Start: 1998 LIPID SCREEN LIPID SCREEN [facility] Start: 1998 SIGMOIDOSCOPY SIGMOIDOSCOPY [facility] Start: 1993 Mammography MAMMOGRAM [facility] Start: 1972 Urine microalbumin profile DTAP,TDAP,TD (1 - Tdap) [facility] Start: 1971 HEPATITIS C SCREENING HEPATITIS C SCREENING [facility] Start: 1965 Adult depression screening assessment DEPRESSION SCREENING [facility] Patient referral [facility] Work Phone: Immunizations Immunization Date Immunization Notes Care Provider Fa [facility] 01-02-2020 influenza, injectabl e, quadrivalent, preservative free Dr. Margaret Moore DO Work Phone: [facility] 01-02-2020 influenza, seasonal, injectable Dr. Margaret Moore Work Phone: [facility] 03-18-2016 tetanus and diphther ia toxoids, adsorbed, preservative free, for adult use (2 Lf of tetanus toxoid and 2 Lf of diphtheria toxoid) Dr. Margaret Moore Work Phone: [facility] Payers Date Payer Category Payer Self-pay [id number] 2023 Medicare [id number] 2023 Unknown [id number] 2018 Medicare MEDICARE MEDICAR E A AND B [id number] 2018-Present [phone] [place] [address] Medicare [id number] 2018 Unknown MEHUL [employer]VER ME DICARE SUPPLEMENT [id number] 2018-Present [phone] [address] [place] [address] Indemnity [id number] Unknown [id number] Unknown [id number] Unknown [id number] Unknown [id number] Unknown [id number] Unknown [id number] Social History Date Type Detail Facility Start: 02-12-2022 Tobacco smoking status NHIS Never smoked tobacco [facility] Start: 07-08-2021 End: 07-23-2021 Alcohol intake Current drinker of alcohol (finding) [facility] Start: 1955 Sex Assigned At Not on file [facility] Start: 06-28-2021 End: 08-22-2021 Exposure to SARS-CoV-2 (event) Not sure [facility] Start: 02-12-2022 End: 02-12-2022 Tobacco smoking status NHIS Unknown if ever smoked [facility] Start: 01-01-2020 None [facility] Start: 12-31-2019 Spouse/ Signif icant Other [facility] Start: 1955 Sex Assigned At Female [facility] Clinical Notes 07-08-2021 to 09-27-2024 Note Date & Type Note Facility 09-27-2024 Procedure note [facility] 07-18-2024 Evaluation note Diagnosis Onset Date Resolution Left knee DJD acute July 18, 2024 3:20pm Obesity acute July 18 3:20pm Right knee DJD acute July 3:20pm [facility] Work Phone: 1(903) 364-317103-02-2023 Discharge summary Author Lizette Rob [facility] June 05, 2022 2:27pm Note Date/Time June 05, 2022 2:27 pm [facility] Physical Therapy [facility] [address] [place] [address] / REHABILITATION SERVICES DISCHARGE SUMMARY MR#: [id number] Acct: [id number] Name: RICHI TELLO Rep #: [id number] : 1955 67 From: Lizette Roy Referring [...] please feel free to call me at [phone]. Thank you for the referral of thispatient. Sincerely, Lizette Rob, SANDRINET Balance/Gait/Functional tests - Balance/Special Test Scores Lower Extremity Functional Score: 43 TUG Test Time Seconds: 16 Tug Test: <20 sec.=mostly independent <Electronically signed by Lizette Rob DPT> 06/05/22 7151 CC: KAMILLA Rocha; Dr. Margaret Moore, DO ~ ELR Signed [facility] Work Phone: 1(993) 728-555105-19-2022 NoteHNO ID: [id number] Author: Jo Ann Lind Service: ? Author Type: Physician Type: Progress Notes Filed: 09/26/2021 8:06 AM Note Text: Chief Complaint: This 66 year old female who presents with chief complaint:left arch pain HPI Patient presents to clinic for evaluation of left foot. Patient has been experiencing left arch pain second to flatfoot. She presented to [employer] and she had her afo modified. Patient [...] Lind DPM Podiatry [address] [facility] [address] Dept: [phone] [facility] NoteHNO ID: [id number] Author: Mercy Reyez Service: ? Author Type: ? Type: Progress Notes Filed: 08/23/2021 7:14 AM Note Text: Patient presents with: Left Foot - New, abnormal gait Right Foot - New, abnormal gait [facility] History of Present illness Narrative* Jo Ann Lind - 08/22/2021 3:11 PM EDT Chief Complaint: This 66 year old female who presents with chief complaint:left arch pain HPI Patient presents to clinic for evaluation of left foot. Patient has been experiencing left arch pain second to flatfoot. She presented to [employer] and she had her afo modified. Patient [...] Jo Ann Lind DPM Podiatry [address] [facility] [address] Dept: [phone] Dept * Mercy Reyez - 08/22/2021 2:56 PM EDT Patient presents with: Left Foot - New, abnormal gait Right Foot - New, abnormal gait New orthotic order [facility]22 NoteHNO ID: [id number] Author: Sayda Reed MD Service: ? Author Type: Physician Type: Progress Notes Filed: 07/23/2021 11:53 AM Note Text: Richi Tello 1955 REFERRING PHYSICIAN: Self CHIEF COMPLAINT: Follow Up (R breast stereotactic biopsy) HPI: Richi is s/p right stereotactic breast biopsy at [facility] done for abnormal calcifications seen on right breast mammograms. This was done on 07/16/2021. Pathology from [facility] - hyalinized fibroadenoma with clustered microcalcifications. Focal ductal hyperplasia without atypia. Mild fibrocystic change. No evidence of malignancy. Patient notes only soreness in the area. Notes some bruising. PAST MEDICAL HISTORY Diagnosis Date - Achilles tendon rupture Left foot PAST SURGICAL HISTORY Procedure Laterality Date - COLONOSCOPY SCREENING 2018 - PAST SURGICAL HISTORY OF 01/05/1988 ulnar [...] Making Level: 2 - Straightforward Sayda Reed, [facility]04-19-2022 History of Present illness Narrative* Sayda Reed MD - 07/23/2021 11:47 AM EDT Richi Tello 1955 REFERRING PHYSICIAN: Self CHIEF COMPLAINT: Follow Up (R breast stereotactic biopsy) HPI: Richi is s/p right stereotactic breast biopsy at [facility] done for abnormalcalcifications seen on right breast mammograms. This was done on 07/16/2021. Pathology from [facility] - hyalinized fibroadenoma with clustered microcalcifications. Focal [...] Straightforward Sayda Reed MD [facility]-2022 NoteHNO ID: [id number] Author: Sayda Reed MD Service: ? Author [...] passed due to cancer. Mammograms done at [facility] on 06/28/2021 - cluster of amorphous calcifications are seen in the deep inferior medial aspect of the right breast. Biopsy is recommended. BIRADS 4 PAST MEDICAL HISTORY Diagnosis Date - Achilles tendon rupture Left foot PAST SURGICAL HISTORY Procedure Laterality Date - COLONOSCOPY SCREENING 2018 - PAST SURGICAL HISTORY OF 01/05/1988 ulnar [...] entered by the nurse and reviewed by me Nursing Notes: Bailee Antonio RN 07/08/2021 2:30 [...] clear and no icte (more content not included)...[facility]04-[facility] History of Present illness Narrative* Sayda Reed [...] passed due to cancer. Mammograms done at [facility] on 06/28/2021 - cluster of amorphous [...] entered by the nurse and reviewed by ne Nursing Notes: Bailee Antonio RN 07/08/2021 2:30 [...] (98.4 F), height 160 cm (5' 3), judnvz68.6 kg (219 lb 9.6 oz), SpO2 98 [...] scheduled for right stereotactic breast biopsy at [facility] (as per patient's wishes) on July 16. Medical Decision Making: Problems: Moderate: New problem with uncertain prognosis Data: Unique test result(s) reviewed: 1 Risk: Low: Low risk from testing/treatment Medical Decision Making Level: 3 - Low Sayda Reed MD [facility] Nurse Note* Bailee Antonio RN - [...] 2017 Bailee Antonio RN [facility] Diagnosis Calcification of right breast on mammography- Primary [facility] Diagnosis Fibrocystic breast changes, right- Primary documented in this encounter [facility] note* Diagnosis Posterior tibial tendon dysfunction, left- Primary Pes planus of both feet documented in this encounter [facility] note* Diagnosis Onset Date Resolution Status Bilateral ankle pain noneact bernadine Osteoarthritis of knees, bilateral noneactive BMI 39.0-39.9,adult noneacti ve [facility] Work Phone: Evaluation noteNo assessment information available [facility] Work Phone: Reason for referral (narrative)No reason for referral information availableWDayton [facility] Work Phone: Summary Purpose Family History [...] Yes January 01, 2020 6:32am Power of Strategic Accounts Manager Yes December 6:32am Advance Directive Response Recorded Date/ Time Living Will Yes January 01, 2020 7:32am Power of Strategic Accounts Manager Yes December 7:32am Chief Complaint and Reason for Visit Chief Complaint bilat ankle/knees Xray room 3 BILATERAL OA/PAIN. RX HERE Reason for Visit Bilateral ankle pain Osteoarthritis of knees, bilateral BMI 39.0-39.9,adult Chief Complaint SCREENING Chief Complaint Admit Date BILATERAL KNEES July 18, 2024 3:2 0pm LLE; PAIN, ? PERONEAL NEUROPATHY September 272024 12:13pm LLE; PAIN, ? PERONEAL NEUROPATHY September 272024 1:28pm Reason for Visit Admit Date Left knee DJD July 18, 2024 3:2 0pm Obesity July 18, 2024 3:2 0pm Right knee DJD July 18, 2024 3:2 0pm Additional Source Comments Source Comments (unrecognize d section and content) In the event this informatio n is protected by the Federal Confidentiality of Alcohol and Drug Abuse Patient Records regulations: The Federal rules restrict any use of the information to criminally investigate or prosecute any alcohol or drug abuse patient.[facility] the event this information is protected by the Federal Confidentiality of Alcohol and Drug Abuse Patient Records regulations: The Federal rules restrict any use of the information to criminally investigate or prosecute any alcohol or drug abuse patient.[facility] the event this information is protected by the Federal Confidentiality of Alcohol and Drug Abuse Patient Records regulations: The Federal rules restrict any use of the information to criminally investigate or prosecute any alcohol or drug abuse patient.[facility] Reason for Visit (unrecogniz ed section and content) Reason Comments Consult abnormal mammogram Reason Comments Follow Up R breast stereotacti c biopsy Reason Comments New orthotic order New abnormal gait INFORMATION SOURCE (unrecogn ized section and content) DATE CREATED AUTHOR 09/26/2021 [facility] DATE CREATED AUTHOR AUTHOR'S ORGANIZ ATION [facility] Care Teams (unrecognized sec tion and content) Team Status: Active Member Role Status Dates No Primary Care Physician Family Provider Active Dr. Margaret Moore DO Primary Care Provider Active Team Status: Inactive Member Role Status Dates Dr. Margaret Moore DO Primary Care Provider, Referring P rovider Active KAMILLA Wells Attending Provider Active Team Status: Inactive Member Role Status Dates Dr. Margaret Moore DO Primary Care Provider Active Dr. Ambrose Berman MD Attending Provider Active Team Status: Inactive Member Role Status Dates Dr. Margaret Moore DO Primary Care Provider Active KAMILLA Wells Attending Provider, Referring Provi brennon Active Team Status: Inactive Member Role Status Dates Dr. Margaret Moore DO Primary Care Provide r, Attending Provider, Referring Provider Active Team Status: Active Member Role/Relationship Status Dates Dr. Margaret Moore DO Primary Care Provider Active Team Status: Inactive Member Role/Relationship Status Dates Dr. Margaret Moore DO Primary Care Provider Active Start: July 18, 2024 End: July 18, 2024 Dr. Margaret Moore DO Referring Provider Active St art: July 18, 2024 End: July 18, 2024 Dr. Anam Jensen DO Attending Provider Active Start: July 18, 2024 End: July 18, 2024 Team Status: Inactive Member Role/Relationship Status Dates Dr. Margaret Moore DO Primary Care Provider Active Start: September 27, 2024 End: September 27, 2024 Dr. Margaret Moore DO Attending Provider Active St art: September 27, 2024 End: September 27, 2024 Dr. Margaret Moore DO Referring Provider Active St art: September 27, 2024 End: September 27, 2024 Team Status: Active Member Role/Relationship Status Dates Dr. Margaret Moore DO Primary Care Provider Active Start: September 27, 2024 Dr. Margaret Moore DO Referring Provider Active St art: September 27, 2024 Dr. Margaret Moore DO Other Provider Active Start: September 27, 2024 Dr. Denys Melendez MD Attending Provider Active Start: September 27, 2024 Goals (unrecognized section and content) Goals may be documented in a n alternate sectionGoals may be documented in an alternate sectionGoals may be documented in an [...] BE BASED ON THE PRIMARY CLINICAL RECORDS. [facility] [employer] provides no warranty or guarantee of the accuracy or completeness of information in this document.
== END | disposition home or self-care (01) ==
PROVIDERS: PCP Family Medicine; Referring Provider Family Medicine; Visit Provider Family Medicine
DX: Z12.31 Encounter for screening mammogram for malignant neoplasm of breast (principal)
CPT/HCPCS: 77063; 77067

== ENCOUNTER → 2024-11-10 | Outpatient (CLI) | payer MEDICARE, BC, SELFPAY ==
[2024-11-10 12:26] LABS: Hematocrit 41.5 % (37-47); Hemoglobin 13.8 g/dL (12.0-15.0); Immature Granulocytes Count 0.020 X10^3/uL (0.0-0.0); Mean Corp Hgb Conc 33.3 g/dL (32-36); Mean Corpuscular Volume 92.4 fL (81-99); Mean Platelet Vol. 8.9 fl (6.2-12.0); NRBC Flagged by Analyzer 0 % (0-5); Platelet Count 354 K/mm3 (150-450); RBC Distribution Width CV 12.6 % (11.6-14.6); RBC Distribution Width SD 42.6 fl (35.1-43.9); Red Blood Count 4.49 M/mm3 (4.2-5.4); White Blood Count 3.7 K/mm3 (4.4-11.0)
[2024-11-10 13:22] LABS: AST(SGOT) 17 U/L (<=31); Alanine Aminotransfer ALT/SGPT 17 U/L (<=34); Albumin, Serum 4.2 g/dL (3.4-4.8); Alkaline Phosphatase 70 U/L (35-104); Anion Gap 13 (5-15); BUN 10 mg/dL (4-19); BUN/Creat Ratio 14.6 RATIO (10-20); CRP 3.01 mg/L (0.0-3.0); Calcium,Total 9.7 mg/dL (7.6-11.0); Carbon Dioxide 24.7 mmol/L (21.0-32.0); Chloride 104 mmol/L (98-108); Cholesterol 204 mg/dL (<=200); Globulin 2.9 g/dL (2.2-4.2); Glucose 95 mg/dL (70-99); Low Density Lipoprotein Calc. 115 mg/dL; Potassium 3.9 mmol/L (3.3-5.1); Triglycerides 135 mg/dL; Very Low Density Lipoprotein 27 mg/dL (5-40); Vitamin D,25 Hydroxy 56.4 ng/mL (30-100); cholesterol:hdl ratio screen 3.31
== END | disposition home or self-care (01) ==
LOC: BFHLAB 10:17
PROVIDERS: PCP Family Medicine; Visit Provider Family Medicine
DX: I10 Essential (primary) hypertension (principal); E55.9 Vitamin D deficiency, unspecified; E78.5 Hyperlipidemia, unspecified; M25.50 Pain in unspecified joint; Z51.81 Encounter for therapeutic drug level monitoring
CPT/HCPCS: 36415; 80053; 80061; 82306; 85025; 85652; 86140